=== PATIENT | female | born 1945 | race Caucasian/White ===

== ENCOUNTER → 2016-05-26 | Outpatient (CLI) | payer MEDICARE, BC ==
[~2016-05-26] MED LIST: ACET160S3 PO; ACTO15TA11 PO; AMLO5 PO; ASPI325T PO; CARV3.125 PO; CLON.1 PO; FENO145T2 PO; FENT100T TD; FENT75DI T-DERMAL; FURO1TAB60 PO; HYDR25TA35 PO; LEVEMIR SQ; LORA-392 PO; MAXZTAB PO; NEUR300C PO; NITR1SUB3 SL; NYST10007 TOPICAL; ONGL5TAB PO; OXYC1TAB35 PO; PANT40TA3 PO; PERC10TA27 PO; POLY17S PO; PRAV40TA PO; PRIL20CA9 PO; REST15CA PO; Remove Old Patch TD; TRIL135C PO; ZOFR4TAB PO
== END ==
LOC: HRSP 13:20
DX: J18.9 Pneumonia, unspecified organism (principal); R06.00 Dyspnea, unspecified; R05 Cough
CPT/HCPCS: 94060; 94726; 94729

== ENCOUNTER 2016-06-13 11:11 | Day surgery (SDC) | payer MEDICARE, BC ==
[~2016-06-13 11:11] MED LIST changes: -ACTO15TA11 PO; -FENT75DI T-DERMAL; -LORA-392 PO; -MAXZTAB PO; -NITR1SUB3 SL; -ONGL5TAB PO; -PERC10TA27 PO; -PRIL20CA9 PO; -TRIL135C PO; -ZOFR4TAB PO
[2016-06-13] MEDS ORDERED: ceFAZolin 2 GM PREMIX 50 ML IV SCH (11:45)
[2016-06-13] MEDS ORDERED: POVIDONE IODINE 5% (ANTISEPSIS KIT) 4 APPLICATIONS EACH NARE SCH (11:45)
[2016-06-13] MEDS ORDERED: MUPIROCIN 2% OINT 1 APPLIC/GM SYR NASAL SCH (11:45)
[2016-06-13] MEDS ORDERED: CHLORHEXIDINE GLUCONATE 2 % 1 PACK (2 CLOTHS) TOP SCH (11:45)
[2016-06-13] MEDS ORDERED: NS 1000 ML IV SCH (12:00)
[2016-06-13] MEDS ORDERED: ONGL5TAB PO (12:22)
[2016-06-13] MEDS ORDERED: PERC10TA27 PO (12:22)
[2016-06-13] MEDS ORDERED: NITR1SUB3 SL (12:22)
[2016-06-13] MEDS ORDERED: LORA-392 PO (12:22)
[2016-06-13] MEDS ORDERED: ZOFR4TAB PO (12:22)
[2016-06-13] MEDS ORDERED: FENT75DI T-DERMAL (12:22)
[2016-06-13] MEDS ORDERED: TRIL135C PO (12:22)
[2016-06-13] MEDS ORDERED: MAXZTAB PO (12:22)
[2016-06-13] MEDS ORDERED: ACTO15TA11 PO (12:22)
[2016-06-13] MEDS ORDERED: PRIL20CA9 PO (12:24)
[2016-06-13] MEDS ORDERED: MIDAZOLAM HCL 2 MG/2 ML VIAL ONE (13:42)
--- NOTE | 2016-06-15 14:39 | MR ---
cc: ALEXANDRIA ALDRICH DATE: 06/13/2016 INDICATION TIA/CVA, evaluation for atrial fibrillation. PROCEDURE PERFORMED 1. Placement of Medtronic Reveal LINQ MRI compatible loop monitor. 2. Moderate sedation. ACCESS SITE Left subclavicular area. EQUIPMENT USED Medtronic Reveal LINQ model LNQ11 MRI compatible loop monitor, serial number [id number]. PROCEDURE After the patient was prepped and draped in the usual sterile manner, local anesthesia was applied. Medtronic Reveal LINQ monitor was placed without difficulty. R-wave of 0.54 millivolts was obtained. DIAGNOSIS Successful placement of Medtronic Reveal LINQ MRI compatible loop monitor. DISPOSITION Ms. Xie will continue her current medical program. We will initiate long- term monitoring of her device. I will see her back for followup in our office after discharge. Alexandria Aldrich MD OQ/TLL /4:08 PM /2:35 PM MTDD
== END 2016-06-13 15:32 | disposition home or self-care (01) ==
LOC: HDOC 11:11 → HDIC 11:12 → HDOC 15:32
PROVIDERS: ATTEND Internal Medicine Interventional Cardiology
DX: I48.91 Unspecified atrial fibrillation (principal); I25.10 Atherosclerotic heart disease of native coronary artery without angina pectoris; I42.9 Cardiomyopathy, unspecified; E78.5 Hyperlipidemia, unspecified; I10 Essential (primary) hypertension; Z86.711 Personal history of pulmonary embolism; G30.9 Alzheimer's disease, unspecified; G47.30 Sleep apnea, unspecified; K21.9 Gastro-esophageal reflux disease without esophagitis; Z86.73 Personal history of transient ischemic attack (TIA), and cerebral infarction without residual deficits; Z79.82 Long term (current) use of aspirin
CPT/HCPCS: 33282; C1764; J2250; J3010

== ENCOUNTER 2016-10-24 05:56 | Emergency (ER) | payer MEDICARE, BC ==
[~2016-10-24] VITALS: Ht 152.4 cm; Wt 84.0 kg
[~2016-10-24 05:56] MED LIST changes: -ACET160S3 PO; +ACTO15TA11 PO; -FENT100T TD; +FENT75DI T-DERMAL; -LEVEMIR SQ; +LORA-392 PO; +NITR1SUB3 SL; -NYST10007 TOPICAL; +ONGL5TAB PO; -OXYC1TAB35 PO; +PERC10TA27 PO; +PRIL20CA9 PO; -Remove Old Patch TD; +TRIL135C PO; +ZOFR4TAB PO
[2016-10-24 06:04] VITALS: BP 125/62; PULSE 57; RESP 16; TEMP 97.8; O2SAT 96
[2016-10-24] MEDS ORDERED: KETOROLAC TROMETHAMINE 60 MG/2 ML (IM) VIAL IM ONE (06:45)
--- NOTE | 2016-10-24 07:22 | PD ---
HPI Chief Complaint: Musculoskeletal Complaint Time Seen by Provider: 06:27 Travel History International Travel<30 days: No Contact w/Intl Traveler<30days: No Traveled to known affect area: No History of Present Illness HPI 70-year-old female presents to the emergency department by private transportation in the care of her family for complaint of low back pain and restless legs. Patient states since the age of 14 she has intermittent chronic low back pain that causes her legs to have spasm. Patient states symptoms began around 9 PM last evening. Patient states that she did not take any medications for symptom relief. She did not attempt to use Tylenol Aleve or ibuprofen. Patient states that she ran out of her pain medication Percocet taking her last dose on Sunday. Patient states recently within the past 2 months for pain management provider has only been prescribing her Percocet 3 times a day instead of 4 times a day and that since the change in dosing frequency of her medication that she has noticed increasing pain in that she cannot tolerate this. Patient has appointment reportedly on Sunday with her pain management provider and plans on discussing increasing her pain medication back to 4 times a day from 3 times a day. Patient has multiple chronic medical problems including her chronic arthritis chronic pain syndrome as well as anxiety dyslipidemia diabetes hypertension cardiac disease, reports that she currently has a loop recorder, fibromyalgia and reflux chronic peripheral neuropathy peptic ulcer disease remote previous orthopedic surgery and cholecystectomy. Patient rates her low back pain is 8/10 in intensity and leg pain is 2/10 in intensity. Patient's had no recent or new fall or injury. Patient denies any bladder or bowel dysfunction, saddle anesthesia, or new lower extremity numbness tingling or weakness. Patient's had no lower extremity pain or swelling. No recent long distance travel, protracted bedrest , or surgical procedure. Patient takes no blood thinning agents. Patient denies dysuria frequency urgency hematuria or flank pain. Patient denies fever or chills. Patient's had no abdominal pain. Patient also denies any chest pain or shortness of breath. Patient is unable to identify exacerbating or alleviating factors. Patient just states periodically she'll get a flareup of her back pain and comes to the emergency room for shot the takes care of her pain and that she goes home and she is fine for several months after that. Patient reports blood sugars have been well-controlled. [facility] Past Medical History Narrative Medical Rheumatoid arthritis anemia anxiety dyslipidemia hypertension chest pain dementia diabetes peripheral neuropathy loop recorder orthopedic surgery cholecystectomy; no tobacco use; nursing notes reviewed Alzheimer's Disease: Yes Anemia: Yes Arthritis: Yes Anxiety: Yes Depression: No Heart Rhythm Problems: No Cancer: No Cardiovascular Problems: Yes High Cholesterol: Yes Chest Pain: Yes Congestive Heart Failure: No Cerebrovascular Accident: No Dementia: Yes Diabetes: Yes Patient Takes Glucophage: No Diminished Hearing: No Endocrine: Yes Fibromyalgia: Yes Gastrointestinal Disorders: Yes (ACID REFLUX) GERD: Yes Genitourinary: Yes (CYST RIGHT KIDNEY) Headaches: No Hepatitis: No Hiatal Hernia: No Hypertension: Yes Immune Disorder: Yes (RHEUMATOID ARTHRITIS ) Implanted Vascular Access Dvce: Yes Insomnia: Yes Musculoskeletal: Yes (FIBROMYALGIA; RHEUMATOID ARTHRITIS & OSTEOARTHRITIS) Neurologic: Yes (TIPS OF FINGERS "FEELS LIKE THEY ARE ASLEEP") Psychiatric: Yes Reproductive: No Respiratory: Yes (PNEUMONIA ) Migraines: No Pneumonia: Yes Seizures: No Sleep Apnea: Yes (can not tolerate cpap) Thyroid Disease: No Ulcer: Yes (GASTRIC) ?: Not Menopausal: Yes : 2 Para: 2 Past Surgical History Abdominal Surgery: Yes (CHOLECYSTECOMY) AICD: No Arteriovenous Shunt: No Body Medical Devices: RIGHT KNEE ? PARTIAL VS TOTAL REPLACEMENT Cholecystectomy: Yes Insulin Pump: No Joint Replacement: Yes (RIGHT KNEE 2006, LEFT KNEE TOTAL REPLACEMENT 07/23/13) Neurologic Surgery: No Pacemaker: No Other Surgery: Yes (RIGHT TIB/FIB SURGERY 01/2014) Family History Family Myocardial Infarction: Yes Social History Alcohol Use: No Tobacco Use: No Substance Use: No Allergies-Medications (Allergen,Severity, Reaction): Coded Allergies: No Known Allergies (Verified , 06/13/16) Reported Meds & Prescriptions Reported Meds & Active Scripts Active Restoril (Temazepam) 15 Mg Cap 15 Mg PO HS PRN Pravachol (Pravastatin) 40 Mg Tab 40 Mg PO HS Polyethylene Glycol 3350 Powder (Polyethylene Glycol) 17 Gm Pow 17 Gm PO BID Pantoprazole (Pantoprazole Sodium) 40 Mg Tab 40 Mg PO DAILY Neurontin (Gabapentin) 300 Mg Cap 300 Mg PO BID Lasix (Furosemide) 40 Mg Tab 40 Mg PO BID@09,18 Fenofibrate 145 Mg Tab 145 Mg PO HS Catapres (Clonidine) 0.1 Mg Tab 0.1 Mg PO Q8H Coreg (Carvedilol) 3.125 Mg Tab 3.125 Mg PO Q12HR Aspirin 325 Mg Tab 325 Mg PO DAILY Norvasc (Amlodipine Besylate) 5 Mg Tab 10 Mg PO DAILY Reported Nitroglycerin SL (Nitroglycerin) 0.4 Mg Subl 0.4 Mg SL DIRECTED PRN ONE TABLET UNDER THE TONGUE NEEDED FOR CHEST PAIN, MAY REPEAT EVERY FIVE MINUTES FOR A TOTAL OF 3 DOSES OR CALL 911 IF NO RELIEF Actos (Pioglitazone HCl) 15 Mg Tab 15 Mg PO DAILY Fentanyl Patch 72 HR (Fentanyl) 75 Mcg/Hr Patch 75 Mcg T-DERMAL Q72H Remove old patch when new one placed. Ativan (Lorazepam) 0.5 Mg Tab 0.5 Mg PO DAILY PRN Percocet (Oxycodone-Acetaminophen) 10-325 mg Tab 1 Tab PO Q6H PRN Trilipix (Choline Fenofibrate DR) 135 Mg Capdr 135 Mg PO DAILY Onglyza (Saxagliptin) 5 Mg Tab 5 Mg PO DAILY Review of Systems Except as stated in HPI: all other systems reviewed are Neg General / Constitutional: No: Fever, Chills HENT: No: Congestion Cardiovascular: No: Chest Pain or Discomfort Respiratory: No: Shortness of Breath Gastrointestinal: No: Nausea, Vomiting, Diarrhea, Abdominal Pain Genitourinary: No: Decreased Urinary Output, Flank Pain Musculoskeletal: Positive: Myalgias, Arthralgias, Pain (chronic), No: Limited ROM, Weakness, Cramping, Edema Skin: No Rash Neurologic: No: Weakness, Dizziness, Syncope Psychiatric: No: Anxiety Endocrine: No: Heat Intolerance Hematologic/Lymphatic: No: Easy Bruising Physical Exam Narrative GENERAL: Well-developed well-nourished female in no acute distress no respiratory distress; GCS 15: T: 97.8F, BP: 125/62, RR: 16, HR: 57, O2sat RA: 96% SKIN: Warm and dry. HEAD: Normocephalic. EYES: No scleral icterus. No injection or drainage. NECK: Supple, trachea midline. No JVD or lymphadenopathy. CARDIOVASCULAR: Regular rate and rhythm without murmurs, gallops, or rubs. RESPIRATORY: Breath sounds equal bilaterally. No accessory muscle use. GASTROINTESTINAL: Abdomen soft, non-tender, nondistended. MUSCULOSKELETAL: No cyanosis, or edema. Bilateral lower extremities dorsalis pedis pulses 2+ to palpation. No calf tenderness or swelling posterior calf cording; previous ankle surgery interferes with Homans testing. BACK: Nontender without obvious deformity except for mild tenderness to palpation over the lower lumbar spine and left SI joint, fentanyl patch in place. Bilaterally negative straight leg raising. Patient has no antalgic movement from supine to sitting to supine position again. No CVA tenderness. Sensory exam intact. Motor 5 over 5. DTRs 2+ symmetric as tested. Data Data Last Documented VS Vital Signs Date Time Temp Pulse Resp B/P Pulse Ox O2 Delivery O2 Flow Rate FiO2 10/24/16 06:04 97.8 57 16 125/62 96 Orders Ketorolac Inj (Toradol Inj) (10/24/16 06:45) [facility] Medical Decision Making Medical Screen Exam Complete: Yes Emergency Medical Condition: Yes Medical Record Reviewed: Yes Differential Diagnosis Exacerbation low back pain, lumbar radiculopathy, sciatica, chronic pain syndrome; also to consider cauda equina although at this time no neurologic deficit findings by physical exam or history Narrative Course Patient reports that she typically gets a pain shot and is currently not able to tolerate comfortably the current pain medication regimen that her pain management doctor has her on as she is not getting enough pain medication. Patient given injection of Toradol 60 mg IM and a one-time dose of her chronic pain medication Percocet x 1 dose Patient is stable for outpatient management no further testing or diagnostics needed at this time. Diagnosis Primary Impression: Acute exacerbation of chronic low back pain Referrals: Pain Management call for appointment Primary Care Physician call for appointment Patient Instructions: Narcotic given in the ED, General Instructions Additional Instructions: Follow-up with your primary care provider and pain management physician Return to the emergency department for any concerns or change in condition Continue chronic medications as presently prescribed Increase fluid hydration May use moist low heat intermittently to low back for comfort as needed Disposition: 01 DISCHARGE HOME Condition: Stable Francia Mosley MD Oct 24, 2016 07:22
[2016-10-24] MEDS ORDERED: oxyCODONE/ACETAMINOPHEN 7.5 MG/325 MG TAB PO ONE (07:30)
[2016-10-24 08:24] VITALS: BP 131/62; PULSE 53; RESP 16; O2SAT 95
[2016-10-24 08:44] VITALS: RESP 16
== END 2016-10-24 08:46 | disposition home or self-care (01) ==
LOC: PHED 05:56
DX: M54.5 Low back pain (principal); G89.29 Other chronic pain; E11.9 Type 2 diabetes mellitus without complications; I10 Essential (primary) hypertension; E78.5 Hyperlipidemia, unspecified; G30.9 Alzheimer's disease, unspecified; F02.80 Dementia in other diseases classified elsewhere, unspecified severity, without behavioral disturbance, psychotic disturbance, mood disturbance, and anxiety; Z79.84 Long term (current) use of oral hypoglycemic drugs; Z86.79 Personal history of other diseases of the circulatory system; Z87.39 Personal history of other diseases of the musculoskeletal system and connective tissue; Z86.59 Personal history of other mental and behavioral disorders; Z86.69 Personal history of other diseases of the nervous system and sense organs; Z87.19 Personal history of other diseases of the digestive system; Z86.2 Personal history of diseases of the blood and blood-forming organs and certain disorders involving the immune mechanism; Z87.448 Personal history of other diseases of urinary system
CPT/HCPCS: 96372; 99284; J1885

== ENCOUNTER 2017-02-02 15:15 | Emergency (ER) | payer MEDICARE, BC ==
[~2017-02-02] VITALS: Ht 152.4 cm; Wt 91.6 kg
[~2017-02-02 15:15] MED LIST changes: -ACTO15TA11 PO; +ACTO15TA22 PO; +ASPI-183 PO; -ASPI325T PO; -HYDR25TA35 PO; -PRIL20CA9 PO; -ZOFR4TAB PO
[2017-02-02 15:26] VITALS: BP 125/60; PULSE 43; RESP 18; TEMP 98.6; O2SAT 91
[2017-02-02] MEDS ORDERED: LEVEMIR SQ (15:48)
[2017-02-02] MEDS ORDERED: TIZA4TAB PO (15:50)
[2017-02-02] MEDS ORDERED: ONDANSETRON HCL 4 MG/2 ML VIAL IM ONE (16:00)
[2017-02-02] MEDS ORDERED: KETOROLAC TROMETHAMINE 60 MG/2 ML (IM) VIAL IM ONE (16:00)
--- NOTE | 2017-02-02 16:05 | PD ---
HPI Chief Complaint: Fall Time Seen by Provider: 15:35 Travel History International Travel<30 days: No Contact w/Intl Traveler<30days: No Traveled to known affect area: No History of Present Illness HPI The patient was seen and examined in the presence of the nurse. This patient has chronic pain from orthopedic injuries to her legs as a teenager. She is primarily wheelchair bound. Her right ankle is fused and her left is mostly fused. 3 days ago she slipped on the tile floor at home and fell. She occasionally gets around small distances by hanging onto the counters. She slipped on the dogs urine. She landed on her back. She complains of bilateral back pain. No midline pain. She has some hip pain at times. Severity is moderate. She is on multiple sedating medications and appears overmedicated on my evaluation. She is drowsy. There was no head injury. We found an extra fentanyl patch on her. She has been taking extra muscle relaxers since the fall called in by her physician. Severity is moderate. No alleviating factors. PFSH Past Medical History Alzheimer's Disease: Yes Anemia: Yes Arthritis: Yes Anxiety: Yes Depression: No Heart Rhythm Problems: Yes Cancer: No Cardiovascular Problems: Yes High Cholesterol: Yes Chest Pain: Yes Congestive Heart Failure: No Cerebrovascular Accident: Yes Coronary Artery Disease: Yes Dementia: Yes Diabetes: Yes Patient Takes Glucophage: No Diminished Hearing: No Endocrine: Yes Fibromyalgia: Yes Gastrointestinal Disorders: Yes (ACID REFLUX) GERD: Yes Genitourinary: Yes (CYST RIGHT KIDNEY) Headaches: No Hepatitis: No Hiatal Hernia: No Hypertension: Yes Immune Disorder: Yes (RHEUMATOID ARTHRITIS ) Implanted Vascular Access Dvce: Yes Insomnia: Yes Medical other: Yes (CHRONIC PAIN ) Musculoskeletal: Yes (FIBROMYALGIA; RHEUMATOID ARTHRITIS & OSTEOARTHRITIS) Neurologic: Yes (TIPS OF FINGERS "FEELS LIKE THEY ARE ASLEEP") Psychiatric: Yes Reproductive: No Respiratory: Yes (PNEUMONIA ) Migraines: No Myocardial Infarction: Yes Pneumonia: Yes Seizures: No Sleep Apnea: Yes (can not tolerate cpap) Thyroid Disease: No Ulcer: Yes (GASTRIC) Tetanus Vaccination: > 5 Years Influenza Vaccination: Yes ?: Not Menopausal: Yes : 2 Para: 2 Past Surgical History Abdominal Surgery: Yes (CHOLECYSTECOMY) AICD: No Arteriovenous Shunt: No Body Medical Devices: RIGHT KNEE ? PARTIAL VS TOTAL REPLACEMENT Cardiac Surgery: Yes (LOOP RECORDER) Cholecystectomy: Yes Insulin Pump: No Joint Replacement: Yes (RIGHT KNEE 2006, LEFT KNEE TOTAL REPLACEMENT 07/23/13) Neurologic Surgery: No Pacemaker: No Thoracic Surgery: No Other Surgery: Yes (RIGHT TIB/FIB SURGERY 01/2014) Family History Family Myocardial Infarction: Yes Social History Alcohol Use: No Tobacco Use: No Substance Use: No Allergies-Medications (Allergen,Severity, Reaction): Coded Allergies: No Known Allergies (Verified Adverse Reaction, Unknown, 02/02/17) Reported Meds & Prescriptions Reported Meds & Active Scripts Active Restoril (Temazepam) 15 Mg Cap 15 Mg PO HS PRN Pravachol (Pravastatin) 40 Mg Tab 40 Mg PO HS Polyethylene Glycol 3350 Powder (Polyethylene Glycol) 17 Gm Pow 17 Gm PO BID Pantoprazole (Pantoprazole Sodium) 40 Mg Tab 40 Mg PO DAILY Neurontin (Gabapentin) 300 Mg Cap 300 Mg PO BID Lasix (Furosemide) 40 Mg Tab 40 Mg PO BID@09,18 Fenofibrate 145 Mg Tab 145 Mg PO HS Catapres (Clonidine) 0.1 Mg Tab 0.1 Mg PO Q8H Coreg (Carvedilol) 3.125 Mg Tab 3.125 Mg PO Q12HR Aspirin 325 Mg Tab 325 Mg PO DAILY Norvasc (Amlodipine Besylate) 5 Mg Tab 10 Mg PO DAILY Reported Tizanidine (Tizanidine HCl) 4 Mg Tab 4 Mg PO TID Levemir Inj (Insulin Detemir) 1,000 unit/ 10 ML Vial Unknown Dose SQ Do not mix with any other Insulin. Nitroglycerin SL (Nitroglycerin) 0.4 Mg Subl 0.4 Mg SL DIRECTED PRN ONE TABLET UNDER THE TONGUE NEEDED FOR CHEST PAIN, MAY REPEAT EVERY FIVE MINUTES FOR A TOTAL OF 3 DOSES OR CALL 911 IF NO RELIEF Actos (Pioglitazone HCl) 15 Mg Tab 15 Mg PO DAILY Fentanyl Patch 72 HR (Fentanyl) 75 Mcg/Hr Patch 75 Mcg T-DERMAL Q72H Remove old patch when new one placed. Ativan (Lorazepam) 0.5 Mg Tab 0.5 Mg PO DAILY PRN Percocet (Oxycodone-Acetaminophen) 10-325 mg Tab 1 Tab PO Q6H PRN Trilipix (Choline Fenofibrate DR) 135 Mg Capdr 135 Mg PO DAILY Onglyza (Saxagliptin) 5 Mg Tab 5 Mg PO DAILY Review of Systems General / Constitutional: No: Fever Eyes: No: Visual changes HENT: No: Headaches Cardiovascular: No: Chest Pain or Discomfort Respiratory: No: Shortness of Breath Gastrointestinal: No: Abdominal Pain Genitourinary: No: Dysuria Musculoskeletal: Positive: Myalgias, Arthralgias, Limited ROM, Pain Skin: No Rash Neurologic: No: Weakness Psychiatric: No: Depression Endocrine: No: Polydipsia Hematologic/Lymphatic: No: Easy Bruising Physical Exam Narrative GENERAL: Elderly lethargic well-developed patient complaining of back pain. SKIN: Focused skin assessment reveals no rash and nodules. Skin is Warm and dry. HEAD: Atraumatic. Normocephalic. EYES: Pupils equal and round. No scleral icterus. No injection or drainage. ENT: No nasal bleeding or discharge. Mucous membranes pink and moist. NECK: Trachea midline. No JVD. No meningeal signs CARDIOVASCULAR: Regular rate and rhythm. No murmur appreciated. RESPIRATORY: No accessory muscle use. Clear to auscultation. Breath sounds equal bilaterally. GASTROINTESTINAL: Abdomen soft, non-tender, nondistended. Hepatic and splenic margins not palpable. MUSCULOSKELETAL: No clubbing. No cyanosis. No edema. Examination the back reveals no midline tenderness. No tailbone tenderness. Good range of motion of hips without pain. No long bone tenderness of the legs. There is chronic deformity at both ankles. She has some lumbar tenderness on either side without objective finding NEUROLOGICAL: Awake but drowsy. No obvious cranial nerve deficits. Motor grossly within normal limits. Normal speech. PSYCHIATRIC: Has sedate/flat mood and flat affect, denies depression; insight and judgment seems a bit reduced . Data Data Last Documented VS Vital Signs Date Time Temp Pulse Resp B/P (MAP) Pulse Ox O2 Delivery O2 Flow Rate FiO2 02/02/17 15:42 47 93 Room Air 02/02/17 15:26 98.6 18 125/60 (81) Orders Orders Pelvis, Ap Only (Routine) (02/02/17 ) Spine, Lumbar - Ltd (Ap & Lat) (02/02/17 ) Ketorolac Inj (Toradol Inj) (02/02/17 16:00) Ondansetron Inj (Zofran Inj) (02/02/17 16:00) MDM Medical Decision Making Medical Screen Exam Complete: Yes Emergency Medical Condition: Yes Medical Record Reviewed: Yes Differential Diagnosis Back strain, lumbar fracture, pelvic contusion, overmedication Narrative Course I have reviewed the patient's electronic medical record. The patient's daughter is insistent upon x-rays. I reviewed her pelvis x-ray which is negative I reviewed her lumbar spine films which shows a compression fracture at L2 I gave her injection of Zofran and Toradol. I don't feel that she should have any further sedating medication here or on prescription. I advised the patient and daughter that I felt she was overmedicated and recommended a gradual wean off some of her sedating medications. As expected, this recommendation is scoffed at and neither have any interest in trying to get her off of this medication. Of note, I believe this compression fractures an incidental finding. She has no pain anywhere near L2. There is no midline pain at all. No acute neurologic complaint. Diagnosis Primary Impression: Acute exacerbation of chronic low back pain Additional Impression: Fall Qualified Codes: W19.XXXA - Unspecified fall, initial encounter Additional Instructions: The patient was advised to follow up with their physician and return if they worsen. Recommend that you discuss weaning off sedating medication with your physician Med/Other Pt SpecificInfo: Other Disposition: 01 DISCHARGE HOME Condition: Stable Sebas Gomez MD Feb 02, 2017 16:05
--- NOTE | 2017-02-02 16:47 | RADRPT ---
EXAM DATE/TIME: 02/02/2017 16:07 [facility] COMPARISON: No previous studies available for comparison. INDICATIONS : Pelvic pain post fall 3 days ago MEDICAL HISTORY : None. SURGICAL HISTORY : None. ENCOUNTER: Initial ACUITY: 3 days PAIN SCORE: 10/10 LOCATION: Pelvis FINDINGS: A single frontal view of the pelvis demonstrates no evidence of fracture. The bony pelvic ring is in tact. Bony mineralization is normal. The soft tissues are intact. There is joint space narrowing in volving the right hip. CONCLUSION: 1. There is no evidence of acute fracture. Omero Parsons MD on February 02, 2017 at 16:28 Board Certified Radiologist. This report was verified electronically.
--- NOTE | 2017-02-02 16:50 | RADRPT ---
EXAM DATE/TIME: 02/02/2017 16:07 [facility] COMPARISON: CT THORAX W/O CONTRAST, February 23, 2016, 10:42. INDICATIONS : Lower back pain post fall 3 days ago MEDICAL HISTORY : None. SURGICAL HISTORY : None. ENCOUNTER: Initial ACUITY: 3 days PAIN SCORE: 10/10 LOCATION: Lumbar spine FINDINGS: The vertebral bodies are normal in alignment on the lateral view. There is compression fracture of th e superior endplate of L2 with only minimal vertebral body height loss. Osseous structures are osteop enic. There is multilevel facet arthritis maximal at L5-S1 CONCLUSION: 1. Compression fracture L2 without retropulsion Omero Parsons MD on February 02, 2017 at 16:45 Board Certified Radiologist. This report was verified electronically.
[2017-02-02 17:24] VITALS: BP 119/52; PULSE 49; RESP 16; O2SAT 93
[2017-02-02] MEDS ORDERED: ORPH100T2 PO (17:55)
== END 2017-02-02 18:05 | disposition home or self-care (01) ==
LOC: PHED 15:15
DX: M54.5 Low back pain (principal); G89.29 Other chronic pain; M48.56XA Collapsed vertebra, not elsewhere classified, lumbar region, initial encounter for fracture; W01.0XXA Fall on same level from slipping, tripping and stumbling without subsequent striking against object, initial encounter; Y92.009 Unspecified place in unspecified non-institutional (private) residence as the place of occurrence of the external cause
CPT/HCPCS: 72100; 72170; 96372; 99284; J1885; J2405

== ENCOUNTER 2017-02-10 17:52 | Inpatient (IN) | payer MEDICARE, BC ==
[2017-02-10] VITALS (8 sets, daily range): BP systolic 114–171; BP diastolic 55–67; PULSE 42–79; RESP 17–18; TEMP 98.3; O2SAT 94–97
[~2017-02-10] VITALS: Ht 162.6 cm; Wt 88.0 kg
[~2017-02-10 17:52] MED LIST changes: +LEVEMIR SQ; +ORPH100T2 PO; +TIZA4TAB PO
[2017-02-10] MEDS ORDERED: TERBUTALINE INJ 1 MG/ML AMP SQ PRN (18:15)
[2017-02-10] MEDS ORDERED: SODIUM CHLOR 0.9% 1000 ML INJ 1,000 ML IV SCH (18:15)
[2017-02-10] MEDS ORDERED: LORazepam 2 MG/ML VIAL IV PUSH ONE (18:15)
[2017-02-10] MEDS ORDERED: DOPamine INJ PREMIX 500 ML IV PRN (18:15)
--- NOTE | 2017-02-10 18:24 | RADRPT ---
EXAM DATE/TIME: 02/10/2017 18:04 [facility] COMPARISON: CHEST SINGLE AP, March 02, 2016, 6:27. INDICATIONS : Short of breath. MEDICAL HISTORY : Hypertension. Diabetes mellitus type 2. Alzheimers. Cardiomyopathy, SURGICAL HISTORY : Colon resection. 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 Bilateral knee replacements and hip surgery. ENCOUNTER: Initial ACUITY: 1 day PAIN SCORE: 0/10 LOCATION: Bilateral chest FINDINGS: Portable AP view of the chest demonstrates a normal-sized cardiac silhouette. No effusion, consolidat ion, or pneumothorax is visualized. The bones and soft tissues demonstrate no acute abnormality. EKG lines overlie the patient. CONCLUSION: No acute cardiopulmonary abnormality is identified. Kevin Recinos MD on February 10, 2017 at 18:22 Board Certified Radiologist. This report was verified electronically.
[2017-02-10 18:34] LABS: BASOPHIL # 0.1 TH/MM3 (0-0.2); BASOPHIL % 0.5 % (0.0-2.0); EOSINOPHIL # 0.3 TH/MM3 (0-0.4); EOSINOPHIL % 2.3 % (0.0-4.0); HEMATOCRIT 39.5 % (35.0-46.0); HEMO FLAGS DIFF FINAL; LYMPH % 32.1 % (9.0-44.0); LYMPHOCYTE # 3.6 TH/MM3 (1.0-4.8); MEAN CELL VOLUME 83.4 FL (80.0-100.0); MEAN CORPUSCULAR HEMOGLOBIN 27.5 PG (27.0-34.0); MEAN CORPUSCULAR HGB CONC 32.9 % (32.0-36.0); MONO % 11.2 % (0.0-8.0); NEUT % 53.9 % (16.0-70.0); PLATELET COUNT 433 TH/MM3 (150-450); RED BLOOD COUNT 4.73 MIL/MM3 (4.00-5.30); RED CELL DISTRIBUTION WIDTH 14.6 % (11.6-17.2); WHITE BLOOD COUNT 11.2 TH/MM3 (4.0-11.0)
--- NOTE | 2017-02-10 18:45 | PD ---
HPI Chief Complaint: Cardiac Complaint Time Seen by Provider: 18:01 Travel History International Travel<30 days: No Contact w/Intl Traveler<30days: No Traveled to known affect area: No History of Present Illness HPI 71-year-old female complains of having frequent falls. Patient states that she fell frequently for the past several weeks. Patient states that she started having mid back pain and low back pain from the fall recently. Patient denies any head injury. Patient denies any headache. Patient denies any neck pain. Patient denies any patient denies any chest pain or shortness of breath. Patient denies abdominal pain. Patient denies any focal weakness or numbness of extremity. Patient has history of hypertension, type 2 diabetes, hyperlipidemia, metabolic encephalopathy, prior history of PE, chronic pain. EMS was called today. Patient was bradycardic with a heart rate in the 40s. EKG showed sinus bradycardia with a raise in the 40s. Systolic blood pressure was any 80s. Patient was given atropine 0.4 mg 2 without relief. External pacer was applied to the chest wall and she was transported to ED for evaluation. Family members state the patient has low pulse usually in the 40s and 50s and blood pressure in the 70s and 80s for the past few months. Patient has been refusing pacer placement by Dr. Aldrich . [facility] Past Medical History Alzheimer's Disease: Yes Anemia: Yes Arthritis: Yes Anxiety: Yes Depression: No Heart Rhythm Problems: Yes Cancer: No Cardiovascular Problems: Yes High Cholesterol: Yes Chest Pain: Yes Congestive Heart Failure: No Cerebrovascular Accident: Yes Coronary Artery Disease: Yes Dementia: Yes Diabetes: Yes Patient Takes Glucophage: No Diminished Hearing: No Endocrine: Yes Fibromyalgia: Yes Gastrointestinal Disorders: Yes (ACID REFLUX) GERD: Yes Genitourinary: Yes (CYST RIGHT KIDNEY) Headaches: No Hepatitis: No Hiatal Hernia: No Hypertension: Yes Immune Disorder: Yes (RHEUMATOID ARTHRITIS ) Implanted Vascular Access Dvce: Yes Insomnia: Yes Medical other: No Musculoskeletal: Yes (FIBROMYALGIA; RHEUMATOID ARTHRITIS & OSTEOARTHRITIS) Neurologic: Yes (TIPS OF FINGERS "FEELS LIKE THEY ARE ASLEEP") Psychiatric: Yes Reproductive: No Respiratory: Yes (PNEUMONIA ) Migraines: No Myocardial Infarction: Yes Pneumonia: Yes Seizures: No Sleep Apnea: Yes (can not tolerate cpap) Thyroid Disease: No Ulcer: Yes (GASTRIC) ?: Not Menopausal: Yes : 2 Para: 2 Past Surgical History Abdominal Surgery: Yes (CHOLECYSTECOMY) AICD: No Arteriovenous Shunt: No Body Medical Devices: RIGHT KNEE ? PARTIAL VS TOTAL REPLACEMENT Cardiac Surgery: Yes (LOOP RECORDER) Cholecystectomy: Yes Ear Surgery: No Endocrine Surgery: No Eye Surgery: No Genitourinary Surgery: No Gynecologic Surgery: No Insulin Pump: No Joint Replacement: Yes (RIGHT KNEE 2006, LEFT KNEE TOTAL REPLACEMENT 07/23/13) Neurologic Surgery: No Oral Surgery: No Pacemaker: No Thoracic Surgery: No Other Surgery: Yes (RIGHT TIB/FIB SURGERY 01/2014) Family History Family Myocardial Infarction: Yes Social History Alcohol Use: No Tobacco Use: No Substance Use: No Allergies-Medications (Allergen,Severity, Reaction): Coded Allergies: No Known Allergies (Verified Adverse Reaction, Unknown, 02/02/17) Reported Meds & Prescriptions Reported Meds & Active Scripts Active Orphenadrine CR (Orphenadrine Citrate) 100 Mg Tab 100 Mg PO Q12HR PRN Restoril (Temazepam) 15 Mg Cap 15 Mg PO HS PRN Pravachol (Pravastatin) 40 Mg Tab 40 Mg PO HS Polyethylene Glycol 3350 Powder (Polyethylene Glycol) 17 Gm Pow 17 Gm PO BID Pantoprazole (Pantoprazole Sodium) 40 Mg Tab 40 Mg PO DAILY Neurontin (Gabapentin) 300 Mg Cap 300 Mg PO BID Lasix (Furosemide) 40 Mg Tab 40 Mg PO BID@09,18 Fenofibrate 145 Mg Tab 145 Mg PO HS Catapres (Clonidine) 0.1 Mg Tab 0.1 Mg PO Q8H Coreg (Carvedilol) 3.125 Mg Tab 3.125 Mg PO Q12HR Aspirin 325 Mg Tab 325 Mg PO DAILY Norvasc (Amlodipine Besylate) 5 Mg Tab 10 Mg PO DAILY Reported Tizanidine (Tizanidine HCl) 4 Mg Tab 4 Mg PO TID Levemir Inj (Insulin Detemir) 1,000 unit/ 10 ML Vial Unknown Dose SQ Do not mix with any other Insulin. Nitroglycerin SL (Nitroglycerin) 0.4 Mg Subl 0.4 Mg SL DIRECTED PRN ONE TABLET UNDER THE TONGUE NEEDED FOR CHEST PAIN, MAY REPEAT EVERY FIVE MINUTES FOR A TOTAL OF 3 DOSES OR CALL 911 IF NO RELIEF Actos (Pioglitazone HCl) 15 Mg Tab 15 Mg PO DAILY Fentanyl Patch 72 HR (Fentanyl) 75 Mcg/Hr Patch 75 Mcg T-DERMAL Q72H Remove old patch when new one placed. Ativan (Lorazepam) 0.5 Mg Tab 0.5 Mg PO DAILY PRN Percocet (Oxycodone-Acetaminophen) 10-325 mg Tab 1 Tab PO Q6H PRN Trilipix (Choline Fenofibrate DR) 135 Mg Capdr 135 Mg PO DAILY Onglyza (Saxagliptin) 5 Mg Tab 5 Mg PO DAILY Review of Systems General / Constitutional: No: Fever Eyes: No: Visual changes HENT: No: Headaches Cardiovascular: No: Chest Pain or Discomfort Respiratory: No: Shortness of Breath Gastrointestinal: No: Abdominal Pain Genitourinary: No: Dysuria Musculoskeletal: No: Pain Skin: No Rash Neurologic: No: Weakness Psychiatric: No: Depression Endocrine: No: Polydipsia Hematologic/Lymphatic: No: Easy Bruising Physical Exam Narrative GENERAL: Well-nourished, well-developed patient. SKIN: Focused skin assessment warm/dry. HEAD: Normocephalic. EYES: No scleral icterus. No injection or drainage. NECK: Supple, trachea midline. No JVD or lymphadenopathy. CARDIOVASCULAR: Bradycardia rate and rhythm without murmurs, gallops, or rubs. RESPIRATORY: Breath sounds equal bilaterally. No accessory muscle use. GASTROINTESTINAL: Abdomen soft, non-tender, nondistended. MUSCULOSKELETAL: No cyanosis, or edema. BACK: Patient has mild to moderate tenderness on palpation low thoracic upper lumbar area, without obvious deformity. No CVA tenderness. Neurologic exam: Patient's awake and alert oriented 3. No obvious focal neurological deficit. Data Data Last Documented VS Vital Signs Date Time Temp Pulse Resp B/P (MAP) Pulse Ox O2 Delivery O2 Flow Rate FiO2 02/10/17 18:43 43 18 114/56 (75) 95 Nasal Cannula 2.00 02/10/17 18:09 98.3 Orders Orders Lorazepam Inj (Ativan Inj) (02/10/17 18:15) Electrocardiogram (02/10/17 18:02) Complete Blood Count With Diff (02/10/17 18:02) Comprehensive Metabolic Panel (02/10/17 18:02) Creatine Kinase (Cpk) (02/10/17 18:02) Troponin I (02/10/17 18:02) B-Type Natriuretic Peptide (02/10/17 18:02) Prothrombin Time / Inr (Pt) (02/10/17 18:02) Act Partial Throm Time (Ptt) (02/10/17 18:02) Thyroid Stimulating Hormone (02/10/17 18:02) Chest, Single Ap (02/10/17 18:) Iv Access Insert/Monitor (02/10/17 18:02) Ecg Monitoring (02/10/17 18:02) Oxygen Administration (02/10/17 18:) Oximetry (02/10/17 18:02) Dopamine Inj Premix (Dopamine Inj Premix (02/10/17 18:15) Terbutaline Inj (Brethine Inj) (02/10/17 18:15) Sodium Chlor 0.9% 1000 Ml Inj (Ns 1000 M (02/10/17 18:15) Spine, Lumbar - Ltd (Ap & Lat) (02/10/17 18:08) Spine, Thoracic-Ap/Lat/Sw(3vw) (02/10/17 18:09) Labs Laboratory Tests Test 02/10/17 18:06 White Blood Count 11.2 TH/MM3 Red Blood Count 4.73 MIL/MM3 Hemoglobin 13.0 GM/DL Hematocrit 39.5 % Mean Corpuscular Volume 83.4 FL Mean Corpuscular Hemoglobin 27.5 PG Mean Corpuscular Hemoglobin Concent 32.9 % Red Cell Distribution Width 14.6 % Platelet Count 433 TH/MM3 Mean Platelet Volume 7.3 FL Neutrophils (%) (Auto) 53.9 % Lymphocytes (%) (Auto) 32.1 % Monocytes (%) (Auto) 11.2 % Eosinophils (%) (Auto) 2.3 % Basophils (%) (Auto) 0.5 % Neutrophils # (Auto) 6.0 TH/MM3 Lymphocytes # (Auto) 3.6 TH/MM3 Monocytes # (Auto) 1.3 TH/MM3 Eosinophils # (Auto) 0.3 TH/MM3 Basophils # (Auto) 0.1 TH/MM3 CBC Comment DIFF FINAL Differential Comment MDM Medical Decision Making Medical Screen Exam Complete: Yes Emergency Medical Condition: Yes Medical Record Reviewed: Yes Differential Diagnosis Differential diagnosis including sinus bradycardia, heart block. Narrative Course 71-year-old female with beta cardia and hypertension. History of chronic bradycardia and hypotension. Patient has been refusing pacemaker to be placed by Dr. Aldrich. External pacer was applied by EMS. I spoke with Dr. Moses on-call for Dr. Aldrich. Advised to stop the external pacer and dopamine IV drip as necessary to keep pulse of blood pressure under control. Diagnosis Primary Impression: Sinus bradycardia Gurjit Fletcher MD Feb 10, 2017 18:45
[2017-02-10] MEDS ORDERED: HYDR-3799 PO (18:50)
[2017-02-10] MEDS ORDERED: MULT1CHW PO (18:50)
[2017-02-10] MEDS ORDERED: NEUR300C PO (18:50)
[2017-02-10] MEDS ORDERED: ZANT150T2 PO (18:50)
[2017-02-10] MEDS ORDERED: FLUO1TAB3 PO (18:50)
[2017-02-10] MEDS ORDERED: ASPI81TA16 PO (18:50)
[2017-02-10] MEDS ORDERED: D31000CA3 PO (18:50)
[2017-02-10] MEDS ORDERED: AMLO10 PO (18:50)
[2017-02-10] MEDS ORDERED: ISOS30TA3 PO (18:50)
[2017-02-10] MEDS ORDERED: LORA2TAB7 PO (18:50)
[2017-02-10 18:52] LABS: ALT (GPT) 15 U/L (10-53); ANION GAP 8 MEQ/L (5-15); APTT (PATIENT) 28.9 SEC (24.3-30.1); AST (GOT) 14 U/L (15-37); BICARBONATE 29.2 MEQ/L (21.0-32.0); BLOOD UREA NITROGEN 12 MG/DL (7-18); CHLORIDE 99 MEQ/L (98-107); GLOMERULAR FILTRATION RATE 45 ML/MIN (>89); INTERNATIONAL NORMALIZED RATIO 1.1 RATIO; PROTHROMBIN TIME - PATIENT 12.2 SEC (9.8-11.6); SODIUM (NA) 136 MEQ/L (136-145)
[2017-02-10 19:02] LABS: ALKALINE PHOSPHATASE 55 U/L (45-117); TOTAL BILIRUBIN ADULT 0.3 MG/DL (0.2-1.0)
[2017-02-10 19:08] LABS: CREATINE KINASE 33 U/L (26-192)
--- NOTE | 2017-02-10 19:25 | PD ---
Data Data Last Documented VS Vital Signs Date Time Temp Pulse Resp B/P (MAP) Pulse Ox O2 Delivery O2 Flow Rate FiO2 02/10/17 19:11 43 18 116/55 (75) 94 Nasal Cannula 2.00 02/10/17 18:09 98.3 Orders Orders Lorazepam Inj (Ativan Inj) (02/10/17 18:15) Electrocardiogram (02/10/17 18:02) Complete Blood Count With Diff (02/10/17 18:02) Comprehensive Metabolic Panel (02/10/17 18:) Creatine Kinase (Cpk) (02/10/17 18:02) Troponin I (02/10/17 18:02) B-Type Natriuretic Peptide (02/10/17 18:02) Prothrombin Time / Inr (Pt) (02/10/17 18:) Act Partial Throm Time (Ptt) (02/10/17 18:02) Thyroid Stimulating Hormone (02/10/17 18:02) Chest, Single Ap (02/10/17 18:02) Iv Access Insert/Monitor (02/10/17 18:02) Ecg Monitoring (02/10/17 18:02) Oxygen Administration (02/10/17 18:02) Oximetry (02/10/17 18:02) Dopamine Inj Premix (Dopamine Inj Premix (02/10/17 18:15) Terbutaline Inj (Brethine Inj) (02/10/17 18:15) Sodium Chlor 0.9% 1000 Ml Inj (Ns 1000 M (02/10/17 18:15) Spine, Lumbar - Ltd (Ap & Lat) (02/10/17 18:08) Spine, Thoracic-Ap/Lat/Sw(3vw) (02/10/17 18:09) Admit Order (Ed Use Only) (02/10/17 ) [employer] Consult[employer] / Telemetry [email or web address] (02/10/17 19:29) Vital Signs (Adult) Q4H (02/10/17 19:29) Diet Npo (02/11/17 Breakfast) Activity Oob With Assistance (02/10/17 19:29) Notify Dr: Other (02/10/17 19:29) Consult Cardiology (02/10/17 ) Labs Laboratory Tests Test 02/10/17 18:06 White Blood Count 11.2 TH/MM3 Red Blood Count 4.73 MIL/MM3 Hemoglobin 13.0 GM/DL Hematocrit 39.5 % Mean Corpuscular Volume 83.4 FL Mean Corpuscular Hemoglobin 27.5 PG Mean Corpuscular Hemoglobin Concent 32.9 % Red Cell Distribution Width 14.6 % Platelet Count 433 TH/MM3 Mean Platelet Volume 7.3 FL Neutrophils (%) (Auto) 53.9 % Lymphocytes (%) (Auto) 32.1 % Monocytes (%) (Auto) 11.2 % Eosinophils (%) (Auto) 2.3 % Basophils (%) (Auto) 0.5 % Neutrophils # (Auto) 6.0 TH/MM3 Lymphocytes # (Auto) 3.6 TH/MM3 Monocytes # (Auto) 1.3 TH/MM3 Eosinophils # (Auto) 0.3 TH/MM3 Basophils # (Auto) 0.1 TH/MM3 CBC Comment DIFF FINAL Differential Comment Prothrombin Time 12.2 SEC Prothromb Time International Ratio 1.1 RATIO Activated Partial Thromboplast Time 28.9 SEC Blood Urea Nitrogen 12 MG/DL Creatinine 1.17 MG/DL Random Glucose 120 MG/DL Total Protein 7.2 GM/DL Albumin 3.2 GM/DL Calcium Level 8.1 MG/DL Alkaline Phosphatase 55 U/L Aspartate Amino Transf (AST/SGOT) 14 U/L Alanine Aminotransferase (ALT/SGPT) 15 U/L Total Bilirubin 0.3 MG/DL Sodium Level 136 MEQ/L Potassium Level 3.0 MEQ/L Chloride Level 99 MEQ/L Carbon Dioxide Level 29.2 MEQ/L Anion Gap 8 MEQ/L Estimat Glomerular Filtration Rate 45 ML/MIN Total Creatine Kinase 33 U/L Troponin I LESS THAN 0.02 NG/ML Thyroid Stimulating Hormone 3rd Gen 1.690 uIU/ML [facility] Supervised Visit with MARTIN: Yes Narrative Course Patient to me at 7 PM. Patient was symptomatic sinus bradycardia, previously refusing pacemaker, now increasingly symptomatic. Dr. Fletcher spoke with Dr. Hamilton. We'll admit patient, we will consult cardiology for pacemaker placement. Diagnosis Primary Impression: Sinus bradycardia Anival Vines MD Feb 10, 2017 19:25
[2017-02-10] MEDS ORDERED: SENNOSIDES 8.6 MG TAB PO PRN (19:45)
[2017-02-10] MEDS ORDERED: SODIUM CHLORIDE 0.9% FLUSH 10 ML FLUSH IV FLUSH PRN (19:45)
[2017-02-10] MEDS ORDERED: LACTULOSE SYRUP 20 GM/30 ML CUP PO PRN (19:45)
[2017-02-10] MEDS ORDERED: ACETAMINOPHEN 325 MG TAB PO PRN (19:45)
[2017-02-10] MEDS ORDERED: BISACODYL 10 MG SUPP RECTAL PRN (19:45)
[2017-02-10] MEDS ORDERED: MAGNESIUM HYDROXIDE SUSP 30 ML CUP PO PRN (19:45)
[2017-02-10] MEDS ORDERED: POTASSIUM CHLORIDE 20 MEQ CONTROLLED RELEASE TAB PO ONE (20:00)
[2017-02-10] MEDS: SODIUM CHLOR 0.9% 1000 ML INJ 1,000 ML IV SCH (20:12)
--- NOTE | 2017-02-10 20:48 | RADRPT ---
EXAM DATE/TIME: 02/10/2017 20:19 [facility] COMPARISON: No previous studies available for comparison. INDICATIONS : Back pain post fall ,cardiac episode. MEDICAL HISTORY : Diabetes mellitus type II. Angina. Coronary artery disease SURGICAL HISTORY : Cholecystectomy. Total knee replacement, left. Right tib/fib surgery ENCOUNTER: Initial ACUITY: 1 day PAIN SCORE: 8/10 LOCATION: Bilateral back FINDINGS: 3 views of the thoracic spine demonstrate no fracture or compression deformity. There are endplate os teophytes at essentially all levels. No anterolisthesis or retrolisthesis is identified. Visualized s urrounding structures demonstrate no acute finding. CONCLUSION: There are degenerative changes throughout the thoracic spine. No acute finding is seen. Kevin Recinos MD on February 10, 2017 at 20:46 Board Certified Radiologist. This report was verified electronically.
--- NOTE | 2017-02-10 20:50 | RADRPT ---
EXAM DATE/TIME: 02/10/2017 20:20 [facility] COMPARISON: SPINE LUMBAR LTD (AP & LAT), February 02, 2017, 16:07. INDICATIONS : Back pain post fall, cardiac episode. MEDICAL HISTORY : Diabetes mellitus type II. Angina. Coronary artery disease SURGICAL HISTORY : Umbilical hernia repair. Cholecystectomy. Total knee replacement, left. Right tib/fib surgery ENCOUNTER: Initial ACUITY: 1 day PAIN SCORE: 7/10 LOCATION: Bilateral back FINDINGS: 3 views of the lumbar spine demonstrate 5 [id number] lumbar vertebral bodies. There is stable clayton perior endplate compression deformity at L2. The superior endplate of T12 also demonstrates stable mi ld decreased height. No new compression fracture is seen. There is no anterolisthesis or retrolisthes is. Facet hypertrophy is present at L4-L5 and L5-S1. CONCLUSION: Stable examination of the lumbar spine with height loss at the superior endplate of T12 and L2. No ac elim ira finding is identified. Kevin Recinos MD on February 10, 2017 at 20:47 Board Certified Radiologist. This report was verified electronically.
--- NOTE | 2017-02-10 20:59 | HHI.HP ---
[facility] Reynaldo Menendez D.O. Admission Diagnosis sinus bradycardia cardiac, hypotension Diagnoses: (1) Symptomatic bradycardia Diagnosis: Principal (2) Leukocytosis Diagnosis: Principal (3) Renal insufficiency Diagnosis: Principal (4) Hypokalemia Diagnosis: Principal Travel History International Travel<30 Days: No Contact w/Intl Traveler <30 Da: No Traveled to Known Affected Are: No History of Present Illness This is a 71-year-old female with a PMH of HTN, Anxiety, CAD, Fibromyalgia, h/o CVA and Rheumatoid Arthritis who was brought to the ER by EMS secondary to c/o back pain after fall. Upon EMS arrival, pt found to be bradycardic, HR 40's, s/ p Atropine x2 w/ minimal improvement, external pacer placed. BP 80's systolic. Per family, has been following w/ Dr. Aldrich for bradycardia, has previously refused Pacemaker. On arrival, BP 171/63, HR 79, O2 sat 96% on 2L NC, Afebrile. While in ER, HR 40s. Dr. Hamilton consulted by ER physician, recommended d/c external pacer, Dopamine gtt as needed. WBC 11.2. K+ 3.0. Creatinine 1.17, previously 0.60 on 02/29/16. Trop negative. INR 1.1. CXR with no acute findings. Thoracic/Lumbar X-ray with no acute fracture. Review of Systems Except as stated in HPI: all other systems reviewed are Neg ROS: 14 point review of systems otherwise negative. Past Family Social History Past Medical History PMH: HTN, Anxiety, CAD, Fibromyalgia, h/o CVA and Rheumatoid Arthritis Past Surgical History PAST SURGICAL HISTORY: Cholecystectomy, Right Knee Surgery, Left Knee Replacement Allergies: Coded Allergies: No Known Allergies (Verified Allergy, Unknown, 02/10/17) Family History PAST FAMILY HISTORY: Reviewed, positive for CAD. Social History PAST SOCIAL HISTORY: Negative for alcohol, tobacco or drugs. Physical Exam Vital Signs Vital Signs Date Time Temp Pulse Resp B/P (MAP) Pulse Ox O2 Delivery O2 Flow Rate FiO2 02/10/17 19:11 43 18 116/55 (75) 94 Nasal Cannula 2.00 02/10/17 18:43 43 18 114/56 (75) 95 Nasal Cannula 2.00 02/10/17 18:13 70 18 96 Nasal Cannula 2.00 02/10/17 18:09 98.3 79 18 171/63 (99) 96 Nasal Cannula 2.00 02/10/17 18:07 18 97 Nasal Cannula 2.00 02/10/17 18:07 97 Nasal Cannula 2.00 Physical Exam PE: GENERAL: Pleasant elderly white female in no acute distress. HEENT: PERRLA, EOMI. No scleral icterus or conjunctival pallor. No lid lag or facial droop. CARDIOVASCULAR: Bradycardia. No obvious murmurs to auscultation. No chest tenderness to palpation. RESPIRATORY: No obvious rhonchi or wheezing. Clear to auscultation. Breath sounds equal bilaterally. GASTROINTESTINAL: Abdomen soft, non-tender, nondistended. BS normal. MUSCULOSKELETAL: Extremities without clubbing, cyanosis, or edema. No obvious deformities. NEUROLOGICAL: Awake, alert and oriented x4. No focal neurologic deficits. Moving both upper and lower extremities spontaneously. Laboratory Laboratory Tests Test 02/10/17 18:06 White Blood Count 11.2 Red Blood Count 4.73 Hemoglobin 13.0 Hematocrit 39.5 Mean Corpuscular Volume 83.4 Mean Corpuscular Hemoglobin 27.5 Mean Corpuscular Hemoglobin Concent 32.9 Red Cell Distribution Width 14.6 Platelet Count 433 Mean Platelet Volume 7.3 Neutrophils (%) (Auto) 53.9 Lymphocytes (%) (Auto) 32.1 Monocytes (%) (Auto) 11.2 Eosinophils (%) (Auto) 2.3 Basophils (%) (Auto) 0.5 Neutrophils # (Auto) 6.0 Lymphocytes # (Auto) 3.6 Monocytes # (Auto) 1.3 Eosinophils # (Auto) 0.3 Basophils # (Auto) 0.1 CBC Comment DIFF FINAL Differential Comment Prothrombin Time 12.2 Prothromb Time International Ratio 1.1 Activated Partial Thromboplast Time 28.9 Blood Urea Nitrogen 12 Creatinine 1.17 Random Glucose 120 Total Protein 7.2 Albumin 3.2 Calcium Level 8.1 Alkaline Phosphatase 55 Aspartate Amino Transf (AST/SGOT) 14 Alanine Aminotransferase (ALT/SGPT) 15 Total Bilirubin 0.3 Sodium Level 136 Potassium Level 3.0 Chloride Level 99 Carbon Dioxide Level 29.2 Anion Gap 8 Estimat Glomerular Filtration Rate 45 Total Creatine Kinase 33 Troponin I LESS THAN 0.02 B-Type Natriuretic Peptide 42 Thyroid Stimulating Hormone 3rd Gen 1.690 Result Diagram: 02/10/17180502/10[facility]1718[address] [facility] Caprin VTE Risk Assessment: Mod/High Risk (score >= 2) Caprini Risk Assessment Model Point Value = 1 Point Value = 2 Point Value = 3 Point Value = 5 Age 41-60 Minor surgery BMI > 25 kg/m2 Swollen legs Varicose veins or History of unexplained or recurrent spontaneous Oral contraceptives or hormone replacement Sepsis (< 1 month) Serious lung disease, including pneumonia (< 1 month) Abnormal pulmonary function Acute myocardial infarction Congestive heart failure (< 1 month) History of inflammatory bowel disease Medical patient at bed rest Age 61-74 Arthroscopic surgery Major open surgery (> 45 min) Laparoscopic surgery (> 45 min) Malignancy Confined to bed (> 72 hours) Immobilizing plaster cast Central venous access Age >= 75 History of VTE Family history of VTE Factor V Leiden Prothrombin [id number] Lupus anticoagulant Anticardiolipin antibodies Elevated serum homocysteine Heparin-induced thrombocytopenia Other congenital or acquired thrombophilia Stroke (< 1 month) Elective arthroplasty Hip, pelvis, or leg fracture Acute spinal cord injury (< 1 month) Prophylaxis Regimen Total Risk Factor Score Risk Level Prophylaxis Regimen 0-1 Low Early ambulation 2 Moderate Order ONE of the following: *Sequential Compression Device (SCD) *Heparin 5000 units SQ BID 3-4 Higher Order ONE of the following medications: *Heparin 5000 units SQ TID *Enoxaparin/Lovenox 40 mg SQ daily (WT < 150 kg, CrCl > 30 mL/min) *Enoxaparin/Lovenox 30 mg SQ daily (WT < 150 kg, CrCl > 10-29 mL/min) *Enoxaparin/Lovenox 30 mg SQ BID (WT < 150 kg, CrCl > 30 mL/min) AND/OR *Sequential Compression Device (SCD) 5 or more Highest Order ONE of the following medications: *Heparin 5000 units SQ TID (Preferred with Epidurals) *Enoxaparin/Lovenox 40 mg SQ daily (WT < 150 kg, CrCl > 30 mL/min) *Enoxaparin/Lovenox 30 mg SQ daily (WT < 150 kg, CrCl > 10-29 mL/min) *Enoxaparin/Lovenox 30 mg SQ BID (WT < 150 kg, CrCl > 30 mL/min) AND *Sequential Compression Device (SCD) Assessment and Plan Problem List: (1) Symptomatic bradycardia ICD Code: R00.1 - Bradycardia, unspecified (2) Hypokalemia ICD Code: E87.6 - Hypokalemia (3) Leukocytosis ICD Code: D72.829 - Elevated white blood cell count, unspecified (4) Renal insufficiency ICD Code: N28.9 - Disorder of kidney and ureter, unspecified Assessment and Plan A/P: 1. Symptomatically Bradycardia: chronic, follows w/ Dr. Aldrich, previously refused Pacer. HR 40's upon arrival, Dr. Child consulted by ER physician, recommended Dopamine as needed. Will eval in am. Initial trop negative, check serial cardiac enzymes to r/o underlying ischemia. Echo 02/05/16 w/ EF 60-65%. Telemetry. 2. Hypokalemia: K+ 3.0. Will replace and recheck 3. SANDRA: Creatinine 1.17, previously 0.60 on 02/29/16. IVF for hydration, repeat labs in am. 4. Leukocytosis: WBC 11, afebrile, no signs of infection. CXR w/ no acute findings, images reviewed by me. Repeat labs in am. 5. DVT Prophylaxis: SCD/Teds. 6. Social work for d/c planning as needed. 7. Case discussed w/ ER physician at length. Physician Certification 2 Midnight Certification Type: Admission for Inpatient Services Order for Inpatient Services The services are ordered in accordance with Medicare regulations or non- Medicare payer requirements, as applicable. In the case of services not specified as inpatient-only, they are appropriately provided as inpatient services in accordance with the 2-midnight benchmark. Estimated LOS (days): 2 days is the estimated time the patient will need to remain in the hospital, assuming treatment plan goals are met and no additional complications. Post-Hospital Plan: Not yet determined Sofia Alcocer MD Feb 10, 2017 20:59
[2017-02-10] MEDS: INSULIN ASPART SUPPLEMENTAL SCALE SQ SCH (21:00)
[2017-02-10] MEDS ORDERED: GLUCAGON 1 MG/ML VIAL OTHER PRN (21:00)
[2017-02-10] MEDS ORDERED: DEXTROSE 50% IN WATER 50 ML VIAL(D50) IV PUSH PRN (21:00)
[2017-02-10] MEDS: SODIUM CHLORIDE 0.9% FLUSH 10 ML FLUSH IV FLUSH SCH (21:09)
[2017-02-10] MEDS: fentaNYL 75 MCG/HR PATCH T-DERMAL SCH (22:49)
[2017-02-10] MEDS: DOCUSATE SODIUM 50 MG/SENNA 8.6 MG TAB PO SCH (22:50)
[2017-02-10] MEDS: PRAVASTATIN SOD 40 MG TAB PO SCH (22:50)
[2017-02-10] MEDS: FENOFIBRATE 145 MG TAB PO SCH (22:50)
[2017-02-11] VITALS (24 sets, daily range): BP systolic 147–196; BP diastolic 68–80; PULSE 50–78; RESP 18; TEMP 98.2–98.7; O2SAT 93–98
[2017-02-11] MEDS: MORPHINE SULFATE 4 MG/ML INJ IV PUSH PRN ×3 (04:08→19:30)
[2017-02-11] MEDS: SODIUM CHLOR 0.9% 1000 ML INJ 1,000 ML IV SCH (05:06)
[2017-02-11 05:29] LABS: AUTOMATED NEUTROPHIL # 6.9 TH/MM3 (1.8-7.7); BASOPHIL # 0.1 TH/MM3 (0-0.2); BASOPHIL % 0.7 % (0.0-2.0); EOSINOPHIL # 0.3 TH/MM3 (0-0.4); EOSINOPHIL % 2.3 % (0.0-4.0); HEMO FLAGS DIFF FINAL; LYMPHOCYTE # 3.1 TH/MM3 (1.0-4.8); MEAN CELL VOLUME 84.2 FL (80.0-100.0); MEAN CORPUSCULAR HEMOGLOBIN 28.7 PG (27.0-34.0); MEAN CORPUSCULAR HGB CONC 34.1 % (32.0-36.0); MONO % 9.6 % (0.0-8.0); NEUT % 60.4 % (16.0-70.0); PLATELET COUNT 384 TH/MM3 (150-450); RED BLOOD COUNT 4.64 MIL/MM3 (4.00-5.30); RED CELL DISTRIBUTION WIDTH 14.9 % (11.6-17.2); WHITE BLOOD COUNT 11.5 TH/MM3 (4.0-11.0)
[2017-02-11 05:50] LABS: ANION GAP 8 MEQ/L (5-15); AST (GOT) 13 U/L (15-37); BICARBONATE 28.1 MEQ/L (21.0-32.0); BLOOD UREA NITROGEN 8 MG/DL (7-18); CHLORIDE 104 MEQ/L (98-107); GLOMERULAR FILTRATION RATE 60 ML/MIN (>89); POTASSIUM 3.3 MEQ/L (3.5-5.1); SODIUM (NA) 140 MEQ/L (136-145)
[2017-02-11 05:53] LABS: ALKALINE PHOSPHATASE 53 U/L (45-117); ALT (GPT) 14 U/L (10-53); TOTAL BILIRUBIN ADULT 0.4 MG/DL (0.2-1.0)
[2017-02-11] MEDS ORDERED: VANCOMYCIN INJ 1,000 MG in SODIUM CHLOR 0.9% 250 ML INJ 250 ML IV SCH (06:45)
[2017-02-11] MEDS ORDERED: POTASSIUM CHLORIDE 20 MEQ CONTROLLED RELEASE TAB PO ONE (06:45)
[2017-02-11] MEDS ORDERED: POVIDONE IODINE 5% (ANTISEPSIS KIT) 4 APPLICATIONS EACH NARE SCH (06:45)
[2017-02-11] MEDS ORDERED: CHLORHEXIDINE GLUCONATE 2 % 1 PACK (2 CLOTHS) TOP SCH (06:45)
[2017-02-11] MEDS ORDERED: ceFAZolin 2 GM PREMIX 50 ML IV SCH (06:45)
[2017-02-11] MEDS ORDERED: MUPIROCIN 2% OINT 1 APPLIC/GM SYR NASAL SCH (06:45)
[2017-02-11] MEDS: ACETAMINOPHEN/HYDROcodone 325 MG/5 MG TAB PO PRN ×2 (06:51→14:23)
[2017-02-11] MEDS: INSULIN ASPART SUPPLEMENTAL SCALE SQ SCH ×4 (07:23→21:00)
[2017-02-11] MEDS: ONDANSETRON HCL 4 MG/2 ML VIAL IVP PRN (08:14)
[2017-02-11] MEDS: GABAPENTIN 300 MG CAP PO SCH ×3 (08:15→17:22)
[2017-02-11] MEDS: DOCUSATE SODIUM 50 MG/SENNA 8.6 MG TAB PO SCH ×3 (08:15→22:02)
[2017-02-11] MEDS: PANTOPRAZOLE SOD 40 MG DELAYED RELEASE TAB PO SCH (08:15)
[2017-02-11] MEDS: SODIUM CHLORIDE 0.9% FLUSH 10 ML FLUSH IV FLUSH SCH ×2 (08:16→21:00)
[2017-02-11] MEDS: ASPIRIN EC 81 MG TABEC PO SCH (08:16)
[2017-02-11] MEDS: ENALAPRILAT 1.25 MG/ML VIAL IV PUSH PRN (08:46)
[2017-02-11] MEDS: LORazepam 2 MG TAB PO SCH ×3 (08:48→17:22)
[2017-02-11] MEDS: ISOSORBIDE MONONITRATE 30 MG TAB PO SCH (08:48)
[2017-02-11] MEDS ORDERED: FUROSEMIDE 40 MG TAB PO SCH (09:00)
--- NOTE | 2017-02-11 09:55 | MB ---
cc: DARIUSZ PINA M.D., OTAKAR MD DATE OF CONSULTATION: February 11, 2017 REASON FOR CONSULTATION Near syncope and symptomatic bradycardia. HISTORY Ms. Xie is a 71-year-old white female, established patient of Dr. Aldrich, with history of bradycardia, hypertension, coronary artery disease, prior CVA, who presented via [facility] to the emergency room with an episode of symptomatic bradycardia last night. The patient was lightheaded and unsteady at home and her daughter called [facility]. Her heart rate initially was in the 40s and she reportedly had a systolic blood pressure in the 70s. Transcutaneous pacing was initiated at home and she was taken to the emergency room here at [place]. The patient was in moderate amount of pain from the pacemaker but was awake and alert on arrival. After discussion with the emergency room Dr. Fletcher, he gave the patient some intravenous fluids and possibly some dopamine initially, and was able to discontinue the transcutaneous pacing. The patient has been off dopamine overnight and has been has been given some intravenous fluids with good success. Her heart rate at this time is 60 in sinus rhythm and her blood pressure is good. She is currently asymptomatic except for some back pain. The patient tells me she has not been eating and drinking very well at home recently. She takes a lot of pain medications for her back which she injured in a fall recently. She has been seeing Dr. Aldrich and has an implanted loop recorder since around May and apparently was told that she needed a permanent pacemaker placed but had declined that up until now. She is now in agreement to that. PAST MEDICAL HISTORY Longstanding hypertension, anxiety disorder, fibromyalgia, CVA, abnormal EKG, CAD, rheumatoid arthritis, bradycardia, she says her stroke affected her right side but that is all improved and she is back to normal. That was about a year or so ago. She denies any history of congestive heart failure, thyroid, liver or kidney disease. She had a pulmonary embolus back in 2013 was treated with Xarelto at that time transiently, that was felt to be related to a recent surgery and she is currently off anticoagulation without recurrence. PAST SURGICAL HISTORY Cholecystectomy, right knee surgery, left knee replacement, and implantable loop recorder. ALLERGIES None known. MEDICATIONS 1. Aspirin 81 mg daily. 2. She had been taking furosemide b.i.d. at home and that is discontinued at this time. 3. Gabapentin 300 milligrams t.i.d. 4. Ativan 2 milligrams t.i.d. 5. Protonix 40 mg daily. 6. Duragesic patch 75 mcg q72 hours. 7. Intravenous normal saline at 100 mL per hour. 8. She was given supplemental potassium last night. 9. Pravastatin 40 milligrams hs. 10. Tylenol. 11. Zofran p.r.n. FAMILY HISTORY: Family history is noncontributory. SOCIAL HISTORY The patient denies tobacco, alcohol or illicit drug use. She is currently living with her ex-, does no regular exercise. REVIEW OF SYSTEMS Denies lower extremity claudication. Denies palpitations, has had frequent lightheadedness but no actual syncopal episodes. Denies fevers, chills, night sweats, nausea, vomiting, diarrhea. Denies any bleeding disorders. Except for that mentioned in HPI a complete 12-point review of systems otherwise negative. PHYSICAL EXAMINATION: Physical examination reveals an elderly obese white female lying in bed in no distress at this time. Vital signs: Blood pressure is 149/68 mmHg, heart rate is 78 and regular, respiratory rate 18, temperature 98.7, oxygen saturation is 98% on room air. Head: Normocephalic and atraumatic. Pupils equal, round and react to light. Sclerae anicteric. Extraocular movements intact. Neck: The neck is supple. There is no adenopathy. No jugular venous distension at 30 degrees. Carotid upstrokes are normal. There are no bruits. Lungs: Clear. Heart: PMI is not displaced. S1-S2 are normal. No murmurs, gallops, clicks or rubs. Abdomen: Obese. Bowel sounds present, soft, nontender. No hepatosplenomegaly, masses or bruits. Extremities: No cyanosis, clubbing or edema. Pulses are intact. Perfusion is adequate in the upper and lower extremities. There are no femoral bruits. Neurologic: Exam is grossly intact. IMAGING STUDIES: EKG: From admission yesterday shows sinus bradycardia rate 42, old inferior infarct, abnormal EKG. There has been no change compared to the available EKG from February 26, 2016. Chest x-ray: No acute cardiopulmonary abnormality identified. X-rays of the thoracic spine: degenerative changes. No acute findings. X-ray of the lumbar spine stable height loss. No acute findings. LABORATORY DATA CBC from this morning white count 11.5, hemoglobin 13.3, platelet count and 184,000. Coags are normal. Chemistries: sodium 140, potassium 3.3, chloride 104, CO2 28.1, BUN 8, creatinine 0.92, glucose 122, AST 13, troponin I x3 sets since admission less than 0.02. TSH 1.69. IMPRESSION 1. Symptomatic bradycardia, currently improved. 2. Hypotension, improved after intravenous fluids. 3. History of hypertension. 4. History of pulmonary embolism. 5. History of CVA. 6. Hypokalemia. PLAN: The patient's potassium will be replaced to 4.0. Intravenous fluids will be discontinued at this time. Continue observation on telemetry. N.p.o. after midnight tonight. I believe she has been recommended permanent pacing by Dr. Aldrich prior to this event and certainly she had significant symptoms yesterday, although they have currently resolved. She will likely benefit from permanent pacemaker implant. I will tentatively schedule that for tomorrow when Dr. Aldrich is back since she is stable from a cardiovascular standpoint at this time. Discussed the plans in detail with the patient and she is in agreement to proceed with that as outlined above. I have discussed plans with the nursing staff. Thank you for allowing us allowing us to participate in the care of this patient. MD MIKE Russell/PRAKASH /6:39 AM /9:04 AM
--- NOTE | 2017-02-11 13:15 | EKG ---
Date Performed: 02/10/2017 Time Performed: 18:37:48 PTAGE: 71 years EKG: Marked sinus bradycardia with a heart rate of 42 Minor nonspecific T-wave flattening PREVIOUS TRACING : 02/26/2016 22.19 Since previous tracing, T-wave changes have improved and heart rate is slower. DOCTOR: Juan Franks Interpretating Date/Time 02/11/2017 13:15:06
[2017-02-11] MEDS: hydrALAZINE HCL 25 MG TAB PO SCH ×2 (14:21→22:02)
[2017-02-11] MEDS ORDERED: NALOXONE HCL 0.4 MG/ML AMP IV PUSH PRN (16:45)
[2017-02-11] MEDS ORDERED: ACETAMINOPHEN/HYDROcodone 325 MG/5 MG TAB PO PRN (16:45)
--- NOTE | 2017-02-11 16:53 | HHI.PR ---
Subjective Remarks Patient says she is feeling a little better today. Less lightheadedness, however still present. Denies any chest pain or shortness of breath. Reports continuous low back pain, requesting increase in the context. Objective Vital Signs Date Time Temp Pulse Resp B/P (MAP) Pulse Ox O2 Delivery O2 Flow Rate FiO2 02/11/17 16:00 62 02/11/17 15:28 98.3 61 18 168/68 (101) 98 02/11/17 15:00 61 02/11/17 14:00 67 02/11/17 13:00 66 02/11/17 12:00 98.4 62 18 147/74 (98) 98 02/11/17 12:00 62 02/11/17 11:00 57 02/11/17 10:00 55 02/11/17 09:00 62 02/11/17 08:30 170/72 (104) 02/11/17 08:00 60 02/11/17 08:00 98.5 60 18 196/80 (118) 98 02/11/17 07:51 20 02/11/17 07:00 65 02/11/17 06:01 78 02/11/17 05:01 62 02/11/17 04:41 18 02/11/17 04:00 61 02/11/17 03:02 18 02/11/17 03:00 60 02/11/17 02:12 98.7 50 18 149/68 (95) 98 02/11/17 00:39 02/10/17 23:00 54 17 159/67 (97) 95 Nasal Cannula 2.00 02/10/17 22:00 48 18 138/58 (84) 97 Nasal Cannula 2.00 02/10/17 21:00 46 18 117/56 (76) 95 Nasal Cannula 2.00 02/10/17 20:00 42 18 131/58 (82) 95 Nasal Cannula 2.00 02/10/17 19:11 43 18 116/55 (75) 94 Nasal Cannula 2.00 02/10/17 18:43 43 18 114/56 (75) 95 Nasal Cannula 2.00 02/10/17 18:13 70 18 96 Nasal Cannula 2.00 02/10/17 18:09 98.3 79 18 171/63 (99) 96 Nasal Cannula 2.00 02/10/17 18:07 18 97 Nasal Cannula 2.00 02/10/17 18:07 97 Nasal Cannula 2.00 I/O 02/10/17 02/10/17 02/10/17 02/11/17 02/11/17 02/11/17 07:00 15:00 23:00 07:00 15:00 23:00 Intake Total 541 ml Output Total 150 ml Balance 391 ml Intake Oral 240 ml IV Total 301 ml Output Urine Total 150 ml Result Diagram: 02/11/17 0500 02/11/17 0500 Objective Remarks GENERAL: Patient sitting up in bed. Appears comfortable. SKIN: Warm and dry. HEAD: Normocephalic. EYES: No scleral icterus. No injection or drainage. NECK: Supple, trachea midline. No JVD. CARDIOVASCULAR: Regular rate and rhythm without murmurs, gallops, or rubs. RESPIRATORY: Breath sounds equal bilaterally. No accessory muscle use. GASTROINTESTINAL: Abdomen soft, non-tender, nondistended. MUSCULOSKELETAL: No cyanosis, or edema. BACK: Nontender without obvious deformity. No CVA tenderness. A/P Assessment and Plan // Symptomatically Bradycardia: chronic, follows w/ Dr. Aldrich, previously refused Pacer. HR 40's upon arrival, Dr. Child consulted by ER physician, recommended Dopamine as needed. Will eval in am. Initial trop negative, check serial cardiac enzymes to r/o underlying ischemia. Echo 02/05/16 w/ EF 60-65%. Telemetry. = Bradycardia improved with holding Coreg. Continue to monitor. Plan per cardiology. //Hypokalemia: K+ 3.0 on admission.. = Replaced. 3.3 this morning Continue to monitor. // SANDRA: Creatinine 1.17, previously 0.60 on 02/29/16. = Discontinue IV fluids. Continue home medications. Order strict intake and output monitoring. //Diabetes mellitus. Sugars controlled. Continue insulin sliding scale. //Hypertension. Blood pressure continues elevated today in the 160s systolic. Start isosorbide, increase hydralazine. // Leukocytosis: WBC 11, afebrile, no signs of infection. CXR w/ no acute findings, images reviewed by me. = Repeat leukocytosis also on the 11's. No signs of infection. Continue to monitor. //Chronic back pain. Continue narcotics. Monitor closely. // DVT Prophylaxis: SCD/Teds. Discharge Planning Home when cleared by cardiology. Rodney Goode MD Feb 11, 2017 16:53
[2017-02-11] MEDS ORDERED: MAGNESIUM OXIDE 400 MG TAB PO ONE (17:00)
[2017-02-11] MEDS: ACETAMINOPHEN/HYDROcodone 325 MG/7.5 MG TAB PO PRN (17:27)
[2017-02-11] MEDS: PRAVASTATIN SOD 40 MG TAB PO SCH (22:02)
[2017-02-11] MEDS: TEMAZEPAM 7.5 MG CAP PO PRN (22:02)
[2017-02-11] MEDS: FENOFIBRATE 145 MG TAB PO SCH (22:03)
[2017-02-12] VITALS (24 sets, daily range): BP systolic 137–191; BP diastolic 65–78; PULSE 52–84; RESP 16–20; TEMP 97.5–98.9; O2SAT 94–98
[2017-02-12] MEDS: ONDANSETRON HCL 4 MG/2 ML VIAL IVP PRN (01:39)
[2017-02-12] MEDS: MORPHINE SULFATE 4 MG/ML INJ IV PUSH PRN ×3 (01:48→18:55)
[2017-02-12] MEDS: ACETAMINOPHEN/HYDROcodone 325 MG/7.5 MG TAB PO PRN ×5 (03:04→20:35)
[2017-02-12 04:59] LABS: AUTOMATED NEUTROPHIL # 5.1 TH/MM3 (1.8-7.7); BASOPHIL # 0.1 TH/MM3 (0-0.2); BASOPHIL % 0.6 % (0.0-2.0); EOSINOPHIL # 0.3 TH/MM3 (0-0.4); EOSINOPHIL % 3.3 % (0.0-4.0); HEMATOCRIT 39.7 % (35.0-46.0); HEMO FLAGS DIFF FINAL; LYMPH % 31.7 % (9.0-44.0); MEAN CELL VOLUME 83.8 FL (80.0-100.0); MEAN CORPUSCULAR HEMOGLOBIN 27.7 PG (27.0-34.0); MEAN CORPUSCULAR HGB CONC 33.1 % (32.0-36.0); MONO % 11.1 % (0.0-8.0); NEUT % 53.3 % (16.0-70.0); PLATELET COUNT 409 TH/MM3 (150-450); RED BLOOD COUNT 4.74 MIL/MM3 (4.00-5.30); RED CELL DISTRIBUTION WIDTH 14.8 % (11.6-17.2); WHITE BLOOD COUNT 9.5 TH/MM3 (4.0-11.0)
[2017-02-12] MEDS: hydrALAZINE HCL 25 MG TAB PO SCH ×3 (05:14→20:25)
[2017-02-12 05:22] LABS: BICARBONATE 31.6 MEQ/L (21.0-32.0); MAGNESIUM 1.6 MG/DL (1.5-2.5); POTASSIUM 3.5 MEQ/L (3.5-5.1)
[2017-02-12] MEDS: INSULIN ASPART SUPPLEMENTAL SCALE SQ SCH ×4 (08:00→20:35)
[2017-02-12] MEDS: ENALAPRILAT 1.25 MG/ML VIAL IV PUSH PRN (08:18)
[2017-02-12] MEDS: ASPIRIN EC 81 MG TABEC PO SCH (08:18)
[2017-02-12] MEDS: PANTOPRAZOLE SOD 40 MG DELAYED RELEASE TAB PO SCH (08:19)
[2017-02-12] MEDS: GABAPENTIN 300 MG CAP PO SCH ×3 (08:19→17:06)
[2017-02-12] MEDS: DOCUSATE SODIUM 50 MG/SENNA 8.6 MG TAB PO SCH ×2 (08:19→20:24)
[2017-02-12] MEDS: LORazepam 2 MG TAB PO SCH ×3 (08:19→17:06)
[2017-02-12] MEDS: ISOSORBIDE MONONITRATE 30 MG TAB PO SCH (08:19)
[2017-02-12] MEDS: SODIUM CHLORIDE 0.9% FLUSH 10 ML FLUSH IV FLUSH SCH ×2 (08:20→20:25)
--- NOTE | 2017-02-12 14:46 | HHI.PR ---
Subjective Remarks Patient says she is feeling all right today. Walking around without much difficulty. She reports constant low back pain continues for the past 2 weeks. Also dull abdominal distention type sensation continues for the past 2 weeks. She denies any constipation. Denies any nausea or vomiting. Objective Vital Signs Date Time Temp Pulse Resp B/P (MAP) Pulse Ox O2 Delivery O2 Flow Rate FiO2 02/12/17 14:00 56 02/12/17 13:00 52 02/12/17 12:00 52 02/12/17 11:00 58 02/12/17 11:00 98.0 58 18 190/78 (115) 96 02/12/17 10:00 72 02/12/17 09:00 68 02/12/17 08:00 60 02/12/17 07:51 55 02/12/17 07:51 97.5 62 18 190/78 (115) 98 02/12/17 06:00 59 02/12/17 05:08 56 02/12/17 04:09 58 02/12/17 03:53 18 02/12/17 03:20 98.1 76 20 191/74 (113) 96 02/12/17 03:00 62 02/12/17 02:06 62 02/12/17 02:06 18 02/12/17 01:09 60 02/12/17 00:03 62 02/11/17 23:00 98.2 51 18 182/74 (110) 94 02/11/17 23:00 63 02/11/17 22:00 52 02/11/17 21:00 60 02/11/17 20:00 62 02/11/17 19:36 98.4 55 18 164/71 (102) 93 02/11/17 19:00 64 02/11/17 17:00 66 02/11/17 16:00 62 02/11/17 15:28 98.3 61 18 168/68 (101) 98 02/11/17 15:00 61 I/O 02/11/17 02/11/17 02/11/17 02/12/17 02/12/17 02/12/17 07:00 15:00 23:00 07:00 15:00 23:00 Intake Total 541 ml 875 ml 480 ml Output Total 150 ml 800 ml 325 ml Balance 391 ml 75 ml 155 ml Intake Oral 240 ml 875 ml 480 ml IV Total 301 ml Output Urine Total 150 ml 800 ml 325 ml # Bowel Movements 0 Result Diagram: 02/12/1743802/12/17438 Objective Remarks GENERAL: Patient sitting up in bed. Appears comfortable. SKIN: Warm and dry. HEAD: Normocephalic. EYES: No scleral icterus. No injection or drainage. NECK: Supple, trachea midline. No JVD. CARDIOVASCULAR: Regular rate and rhythm without murmurs, gallops, or rubs. RESPIRATORY: Breath sounds equal bilaterally. No accessory muscle use. GASTROINTESTINAL: Abdomen soft, non-tender, nondistended. Positive bowel sounds. MUSCULOSKELETAL: No cyanosis, or edema. BACK: Nontender without obvious deformity. No CVA tenderness. A/P Assessment and Plan // Symptomatically Bradycardia: chronic, follows w/ Dr. Aldrich, previously refused Pacer. HR 40's upon arrival, Dr. Child consulted by ER physician, recommended Dopamine as needed. Will eval in am. Initial trop negative, check serial cardiac enzymes to r/o underlying ischemia. Echo 02/05/16 w/ EF 60-65%. Telemetry. = Bradycardia improved with holding Coreg. Continue to monitor. Plan per cardiology. Appreciate assistance //Hypokalemia: K+ 3.0 on admission.. = Resolved with replacement // SANDRA: Creatinine 1.17, previously 0.60 on 02/29/16. = Discontinue IV fluids. Continue home medications. Order strict intake and output monitoring. = Resolved. //Polypharmacy. Patient is on narcotics, benzos. Patient is amenable to home health for medication management. //Diabetes mellitus. Sugars controlled. Continue insulin sliding scale. //Hypertension. Blood pressure continues elevated today in the 190s systolic. Holding Coreg.Continue Imdur. Start on lisinopril. Increase hydralazine. Continue to monitor. // Leukocytosis: WBC 11, on admission. Afebrile. Resolved. //Chronic back pain. Continue narcotics. Patient appears to have spasm of abdominal muscles secondary to back pain. Recommend following up with physical therapy as outpatient. Monitor closely. // DVT Prophylaxis: SCD/Teds. Discharge Planning Home when cleared by cardiology. Will need home health physical therapy, as well as home health nursing for medication management. Rodney Goode MD Feb 12, 2017 14:46
--- NOTE | 2017-02-12 14:48 | HHI.FF ---
Face to Face Verification Diagnosis: (1) Generalized weakness (2) Acute exacerbation of chronic low back pain (3) Fall Physical Therapy Order: Evaluate and Treat Home Health Nursing Order: Nursing assessment with vital signs Instructions: Home health nursing for medication management. I have seen patient Chata Xie on 02/12/17. My clinical findings support the need for the requested home health care services because: Deconditioned w/ increased weakness Med compliance is questionable Limited ability to care for self I certify that my clinical findings support that this patient is homebound because: Unsafe to leave home unassisted Rodney Goode MD Feb 12, 2017 14:48
[2017-02-12] MEDS ORDERED: WALKER WHEELS/F1 MIS (14:56)
--- NOTE | 2017-02-12 14:56 | PD.CARD.PN ---
Subjective Subjective Remarks No CP, mild SOB, c/o severe back pain, also abdominal pain; HR normalized off carvedilol Objective Medications Current Medications Medications (Trade) Dose Ordered Sig/Andrea Route Start Time Stop Time Status Last Admin (Brethine Inj) 1 mg UNSCH PRN SQ 02/10/17 18:15 (NS Flush) 2 ml UNSCH PRN IV FLUSH 02/10/17 19:45 (NS Flush) 2 ml BID IV FLUSH 02/10/17 21:00 02/12/17 08:20 (Zofran Inj) 4 mg Q6H PRN IVP 02/10/17 19:45 02/12/17 01:39 (Tylenol) 650 mg Q6H PRN PO 02/10/17 19:45 (Morphine Inj) 2 mg Q3H PRN IV PUSH 02/10/17 19:45 02/12/17 09:21 (Sofi-Colace) 1 tab BID PO 02/10/17 21:00 02/12/17 08:19 (Milk Of Magnesia Liq) 30 ml Q12H PRN PO 02/10/17 19:45 (Senokot) 17.2 mg Q12H PRN PO 02/10/17 19:45 (Dulcolax Supp) 10 mg DAILY PRN RECTAL 02/10/17 19:45 (Lactulose Liq) 30 ml DAILY PRN PO 02/10/17 19:45 (D50w (Vial) Inj) 50 ml UNSCH PRN IV PUSH 02/10/17 21:00 (Glucagon Inj) 1 mg UNSCH PRN OTHER 02/10/17 21:00 (NovoLOG SUPPLEMENTAL SCALE) 1 ACHS SLIDING SCALE SQ 02/10/17 21:00 02/12/17 12:00 (Ecotrin Ec) 81 mg DAILY PO 02/11/17 09:00 02/12/17 08:18 (Tricor) 145 mg HS PO 02/10/17 21:00 02/11/17 22:03 (Duragesic 75 Mcg Patch.72 Hr) 1 patch Q72H T-DERMAL 02/10/17 22:00 02/10/17 22:49 (Neurontin) 300 mg TID PO 02/11/17 09:00 02/12/17 12:17 (Ativan) 2 mg TID PO 02/11/17 09:00 02/12/17 12:17 (Protonix) 40 mg DAILY PO 02/11/17 09:00 02/12/17 08:19 (Pravachol) 40 mg HS PO 02/10/17 21:00 02/11/17 22:02 Miscellaneous Information 1 Q3D T-DERMAL 02/13/17 22:00 Cefazolin Sodium/ Dextrose 50 ml @ 100 mls/hr DIRECTOR POWER IV 02/11/17 06:45 02/14/17 06:44 Vancomycin HCl 1000 mg/Sodium Chloride 250 ml @ 250 mls/hr DIRECTOR POWER IV 02/11/17 06:45 02/15/17 06:44 (Betadine 5% Antisepsis Kit) 1 applic DIRECTOR POWER EACH NARE 02/11/17 06:45 02/15/17 06:44 (Bactroban Nasal 2% Oint) 1 applic DIRECTOR POWER NASAL 02/11/17 06:45 02/15/17 06:44 (Chlorhexidine 2% Cloth) 3 pack DIRECTOR POWER TOP 02/11/17 06:45 02/15/17 06:44 (Imdur) 30 mg DAILY PO 02/11/17 09:00 02/12/17 08:19 (Vasotec Inj) 1.25 mg Q6H PRN IV PUSH 02/11/17 08:45 02/12/17 08:18 (Culloden 5-325 Mg) 1 tab Q4H PRN PO 02/11/17 16:45 ([place]oden 7.5-325 Mg) 1 tab Q4H PRN PO 02/11/17 16:45 02/12/17 12:17 (Narcan Inj) 0.4 mg UNSCH PRN IV PUSH 02/11/17 16:45 (Restoril) 7.5 mg HS PRN PO 02/11/17 18:00 02/11/17 22:02 (Apresoline) 50 mg Q8HR PO 02/12/17 14:00 02/12/17 14:24 (Prinivil) 5 mg ONCE ONCE PO 02/12/17 15:00 02/12/17 15:01 (Prinivil) 5 mg DAILY PO 02/13/17 09:00 Vital Signs / I&O Vital Signs Date Time Temp Pulse Resp B/P (MAP) Pulse Ox O2 Delivery O2 Flow Rate FiO2 02/12/17 14:00 56 02/12/17 13:00 52 02/12/17 12:00 52 02/12/17 11:00 58 02/12/17 11:00 98.0 58 18 190/78 (115) 96 02/12/17 10:00 72 02/12/17 09:00 68 02/12/17 08:00 60 02/12/17 07:51 55 02/12/17 07:51 97.5 62 18 190/78 (115) 98 02/12/17 06:00 59 02/12/17 05:08 56 02/12/17 04:09 58 02/12/17 03:53 18 02/12/17 03:20 98.1 76 20 191/74 (113) 96 02/12/17 03:00 62 02/12/17 02:06 62 02/12/17 02:06 18 02/12/17 01:09 60 02/12/17 00:03 62 02/11/17 23:00 98.2 51 18 182/74 (110) 94 02/11/17 23:00 63 02/11/17 22:00 52 02/11/17 21:00 60 02/11/17 20:00 62 02/11/17 19:36 98.4 55 18 164/71 (102) 93 02/11/17 19:00 64 02/11/17 17:00 66 02/11/17 16:00 62 02/11/17 15:28 98.3 61 18 168/68 (101) 98 02/11/17 15:00 61 I/O 02/11/17 02/11/17 02/11/17 02/12/17 02/12/17 02/12/17 07:00 15:00 23:00 07:00 15:00 23:00 Intake Total 541 ml 875 ml 480 ml Output Total 150 ml 800 ml 325 ml Balance 391 ml 75 ml 155 ml Intake Oral 240 ml 875 ml 480 ml IV Total 301 ml Output Urine Total 150 ml 800 ml 325 ml # Bowel Movements 0 Physical Exam GENERAL: In moderate distress due to back pain. SKIN: Warm and dry. HEAD: Normocephalic. EYES: No scleral icterus. No injection or drainage. NECK: Supple, trachea midline. No JVD or lymphadenopathy. CARDIOVASCULAR: Regular rate and rhythm without murmurs, gallops, or rubs. RESPIRATORY: Breath sounds equal bilaterally. No accessory muscle use. GASTROINTESTINAL: Abdomen soft, non-tender, nondistended. Obese. MUSCULOSKELETAL: No cyanosis, mild edema. Laboratory Laboratory Tests Test 02/12/17 04:39 White Blood Count 9.5 TH/MM3 Red Blood Count 4.74 MIL/MM3 Hemoglobin 13.1 GM/DL Hematocrit 39.7 % Mean Corpuscular Volume 83.8 FL Mean Corpuscular Hemoglobin 27.7 PG Mean Corpuscular Hemoglobin Concent 33.1 % Red Cell Distribution Width 14.8 % Platelet Count 409 TH/MM3 Mean Platelet Volume 6.9 FL Neutrophils (%) (Auto) 53.3 % Lymphocytes (%) (Auto) 31.7 % Monocytes (%) (Auto) 11.1 % Eosinophils (%) (Auto) 3.3 % Basophils (%) (Auto) 0.6 % Neutrophils # (Auto) 5.1 TH/MM3 Lymphocytes # (Auto) 3.0 TH/MM3 Monocytes # (Auto) 1.1 TH/MM3 Eosinophils # (Auto) 0.3 TH/MM3 Basophils # (Auto) 0.1 TH/MM3 CBC Comment DIFF FINAL Differential Comment Blood Urea Nitrogen 8 MG/DL Creatinine 0.81 MG/DL Random Glucose 122 MG/DL Albumin 3.1 GM/DL Calcium Level 9.0 MG/DL Phosphorus Level 3.0 MG/DL Magnesium Level 1.6 MG/DL Sodium Level 142 MEQ/L Potassium Level 3.5 MEQ/L Chloride Level 105 MEQ/L Carbon Dioxide Level 31.6 MEQ/L Anion Gap 5 MEQ/L Estimat Glomerular Filtration Rate 69 ML/MIN Assessment and Plan Problem List: (1) Symptomatic bradycardia ICD Codes: R00.1 - Bradycardia, unspecified (2) Acute exacerbation of chronic low back pain ICD Codes: M54.5 - Low back pain; G89.29 - Other chronic pain Status: Acute (3) Fall ICD Codes: W19.XXXA - Unspecified fall, initial encounter (4) HTN (hypertension) ICD Codes: I10 - HTN (hypertension) Status: Chronic (5) Chronic kidney disease (CKD), stage III (moderate) ICD Codes: N18.3 - Chronic kidney disease, stage 3 (moderate) Status: Acute (6) Type 2 diabetes mellitus ICD Codes: E11.9 - Type 2 diabetes mellitus without complications Status: Chronic (7) Renal insufficiency ICD Codes: N28.9 - Disorder of kidney and ureter, unspecified Assessment and Plan Bradycardia and hypotension exacerbated by carvedilol. Now improved off beta matthew. BP high, but the patient is in significant distress due to back pain. Doubt she can benefit from pacemaker placement at this time. Continue monitoring on telemetry. Increase activity. Pain control. D/w pt and daughter. Alexandria Aldrich MD Feb 12, 2017 14:56
[2017-02-12] MEDS ORDERED: LISINOPRIL 5 MG TAB PO ONE (15:00)
--- NOTE | 2017-02-12 19:25 | EKG ---
Date Performed: 02/11/2017 Time Performed: 15:56:02 PTAGE: 71 years EKG: Sinus rhythm Anterolateral ST-T changes are nonspecific Borderline ECG Since PREVIOUS TRACING , no significant change noted PREVIOUS TRACIN02/10/2017 18.37 DOCTOR: Yeny Nugent Interpretating Date/Time 02/12/2017 19:24:30
[2017-02-12] MEDS: PRAVASTATIN SOD 40 MG TAB PO SCH (20:24)
[2017-02-12] MEDS: FENOFIBRATE 145 MG TAB PO SCH (20:24)
[2017-02-12] MEDS: TEMAZEPAM 7.5 MG CAP PO PRN (20:25)
[2017-02-13] VITALS (29 sets, daily range): BP systolic 133–179; BP diastolic 63–80; PULSE 60–98; RESP 16–20; TEMP 97.6–98.1; O2SAT 93–97
[2017-02-13] MEDS: ACETAMINOPHEN/HYDROcodone 325 MG/7.5 MG TAB PO PRN ×2 (03:11→08:42)
[2017-02-13] MEDS: ENALAPRILAT 1.25 MG/ML VIAL IV PUSH PRN (03:12)
[2017-02-13] MEDS: hydrALAZINE HCL 25 MG TAB PO SCH ×3 (06:06→21:29)
[2017-02-13] MEDS: INSULIN ASPART SUPPLEMENTAL SCALE SQ SCH ×4 (08:00→22:16)
[2017-02-13] MEDS: PANTOPRAZOLE SOD 40 MG DELAYED RELEASE TAB PO SCH (08:43)
[2017-02-13] MEDS: GABAPENTIN 300 MG CAP PO SCH ×3 (08:43→17:11)
[2017-02-13] MEDS: LISINOPRIL 5 MG TAB PO SCH (08:43)
[2017-02-13] MEDS: ISOSORBIDE MONONITRATE 30 MG TAB PO SCH (08:43)
[2017-02-13] MEDS: LORazepam 2 MG TAB PO SCH ×3 (08:43→17:10)
[2017-02-13] MEDS: SODIUM CHLORIDE 0.9% FLUSH 10 ML FLUSH IV FLUSH SCH ×2 (08:44→21:00)
[2017-02-13] MEDS: ASPIRIN EC 81 MG TABEC PO SCH (08:44)
[2017-02-13] MEDS: DOCUSATE SODIUM 50 MG/SENNA 8.6 MG TAB PO SCH ×2 (09:00→21:29)
[2017-02-13] MEDS: MORPHINE SULFATE 4 MG/ML INJ IV PUSH PRN (10:15)
--- NOTE | 2017-02-13 11:25 | HHI.PR ---
Subjective Remarks Follow-up uncontrolled blood pressure. Bradycardia resolved off the beta matthew Still has chronic pain. Not controlled on what we have here we will adjust all medications A.m. labs PT and OT Will need home health care at discharge RE-ADD NORVASC SWITCH TO PERCOCET 10/325 Q6 ROBAXIN 1000MG PO Q8 Objective Vitals Vital Signs Date Time Temp Pulse Resp B/P (MAP) Pulse Ox O2 Delivery O2 Flow Rate FiO2 02/13/17 08:45 97.6 87 18 155/68 (97) 97 02/13/17 06:10 72 02/13/17 05:00 61 02/13/17 04:03 71 02/13/17 04:03 17 02/13/17 03:59 156/65 (95) 02/13/17 03:00 68 02/13/17 03:00 98.1 60 18 177/72 (107) 94 02/13/17 02:03 79 02/13/17 01:10 62 02/13/17 00:19 69 02/12/17 23:00 59 02/12/17 23:00 98.9 71 18 150/65 (93) 96 02/12/17 22:00 66 02/12/17 21:00 65 02/12/17 19:00 97.8 65 18 173/72 (105) 97 02/12/17 19:00 63 02/12/17 18:00 84 02/12/17 17:00 82 02/12/17 16:00 54 02/12/17 15:00 97.6 53 16 137/67 (90) 94 02/12/17 15:00 56 02/12/17 14:00 56 02/12/17 13:00 52 02/12/17 12:00 52 I/O 02/12/17 02/12/17 02/12/17 02/13/17 02/13/17 02/13/17 07:00 15:00 23:00 07:00 15:00 23:00 Intake Total 480 ml 480 ml 480 ml Output Total 325 ml 610 ml 350 ml Balance 155 ml -130 ml 130 ml Intake Oral 480 ml 480 ml 480 ml Output Urine Total 325 ml 610 ml 350 ml # Bowel Movements 0 0 Result Diagram: 02/12/17 0439 02/12/179 Other Results Laboratory Tests Test 02/10/17 18:06 02/11/17 00:00 02/11/17 05:00 02/12/17 04:39 White Blood Count 11.2 TH/MM3 11.5 TH/MM3 9.5 TH/MM3 Red Blood Count 4.73 MIL/MM3 4.64 MIL/MM3 4.74 MIL/MM3 Hemoglobin 13.0 GM/DL 13.3 GM/DL 13.1 GM/DL Hematocrit 39.5 % 39.0 % 39.7 % Mean Corpuscular Volume 83.4 FL 84.2 FL 83.8 FL Mean Corpuscular Hemoglobin 27.5 PG 28.7 PG 27.7 PG Mean Corpuscular Hemoglobin Concent 32.9 % 34.1 % 33.1 % Red Cell Distribution Width 14.6 % 14.9 % 14.8 % Platelet Count 433 TH/MM3 384 TH/MM3 409 TH/MM3 Mean Platelet Volume 7.3 FL 7.2 FL 6.9 FL Neutrophils (%) (Auto) 53.9 % 60.4 % 53.3 % Lymphocytes (%) (Auto) 32.1 % 27.0 % 31.7 % Monocytes (%) (Auto) 11.2 % 9.6 % 11.1 % Eosinophils (%) (Auto) 2.3 % 2.3 % 3.3 % Basophils (%) (Auto) 0.5 % 0.7 % 0.6 % Neutrophils # (Auto) 6.0 TH/MM3 6.9 TH/MM3 5.1 TH/MM3 Lymphocytes # (Auto) 3.6 TH/MM3 3.1 TH/MM3 3.0 TH/MM3 Monocytes # (Auto) 1.3 TH/MM3 1.1 TH/MM3 1.1 TH/MM3 Eosinophils # (Auto) 0.3 TH/MM3 0.3 TH/MM3 0.3 TH/MM3 Basophils # (Auto) 0.1 TH/MM3 0.1 TH/MM3 0.1 TH/MM3 CBC Comment DIFF FINAL DIFF FINAL DIFF FINAL Differential Comment Prothrombin Time 12.2 SEC Prothromb Time International Ratio 1.1 RATIO Activated Partial Thromboplast Time 28.9 SEC Blood Urea Nitrogen 12 MG/DL 8 MG/DL 8 MG/DL Creatinine 1.17 MG/DL 0.92 MG/DL 0.81 MG/DL Random Glucose 120 MG/DL 122 MG/DL 122 MG/DL Total Protein 7.2 GM/DL 7.4 GM/DL Albumin 3.2 GM/DL 3.1 GM/DL 3.1 GM/DL Calcium Level 8.1 MG/DL 8.2 MG/DL 9.0 MG/DL Alkaline Phosphatase 55 U/L 53 U/L Aspartate Amino Transf (AST/SGOT) 14 U/L 13 U/L Alanine Aminotransferase (ALT/SGPT) 15 U/L 14 U/L Total Bilirubin 0.3 MG/DL 0.4 MG/DL Sodium Level 136 MEQ/L 140 MEQ/L 142 MEQ/L Potassium Level 3.0 MEQ/L 3.3 MEQ/L 3.5 MEQ/L Chloride Level 99 MEQ/L 104 MEQ/L 105 MEQ/L Carbon Dioxide Level 29.2 MEQ/L 28.1 MEQ/L 31.6 MEQ/L Anion Gap 8 MEQ/L 8 MEQ/L 5 MEQ/L Estimat Glomerular Filtration Rate 45 ML/MIN 60 ML/MIN 69 ML/MIN Total Creatine Kinase 33 U/L Troponin I LESS THAN 0.02 NG/ML LESS THAN 0.02 NG/ML LESS THAN 0.02 NG/ML B-Type Natriuretic Peptide 42 PG/ML Thyroid Stimulating Hormone 3rd Gen 1.690 uIU/ML Magnesium Level 1.5 MG/DL 1.6 MG/DL Phosphorus Level 3.0 MG/DL Imaging Last Impressions Thoracic Spine X-Ray 02/10/[id number] Signed Impressions: Service Date/Time: Friday, February 10, 2017 20:19 - CONCLUSION: There are degenerative changes throughout the thoracic spine. No acute finding is seen. Kevin Recinos MD Lumbar Spine X-Ray 02/10/171807 Signed Impressions: Service Date/Time: Friday, February 10, 2017 20:20 - CONCLUSION: Stable examination of the lumbar spine with height loss at the superior endplate of T12 and L2. No acute finding is identified. Kevin Recinos MD Chest X-Ray 02/10/171801 Signed Impressions: Service Date/Time: Friday, February 10, 2017 18:04 - CONCLUSION: No acute cardiopulmonary abnormality is identified. Kevin Recinos MD Objective Remarks GENERAL: Awake alert oriented oriented 3 --talkative and cooperative SKIN: Warm and dry. HEAD: Atraumatic. Normocephalic. EYES: Pupils equal and round. No scleral icterus. No injection or drainage. Extraocular muscles intact ENT: No nasal bleeding or discharge. Mucous membranes pink and moist. Tongue is midline NECK: Trachea midline. No JVD. Supple CARDIOVASCULAR: Regular rate and rhythm. S1 and S2 no S3 or S4 no heave or thrill or rub or gallop RESPIRATORY: No accessory muscle use. Clear to auscultation. Breath sounds equal bilaterally. GASTROINTESTINAL: Abdomen soft, non-tender, nondistended. Hepatic and splenic margins not palpable. Obese MUSCULOSKELETAL: Extremities without clubbing, cyanosis, or edema. No obvious deformities. NEUROLOGICAL: Awake and alert. No obvious cranial nerve deficits. Motor grossly within normal limits. 4 out of 5 muscle strength in the arms and legs. Normal speech. PSYCHIATRIC: Appropriate mood and affect; insight and judgment normal. Medications and IVs Current Medications Lorazepam (Ativan Inj) 1 mg ONCE ONCE IV PUSH Last administered on 02/10/17 18:13; Start 02/10/17 at 18:15; Stop 02/10/17 at 18:16; Status DC Dopamine HCl/ Dextrose 500 ml @ 0 mls/hr TITRATE PRN IV Blood Pressure Management; Start 02/10/17 at 18:15; Stop 02/10/17 at 19:35; Status DC Terbutaline Sulfate (Brethine Inj) 1 mg UNSCH PRN SQ For Extravasation; Start 02/10/17 at 18:15 Sodium Chloride 1,000 ml @ 100 mls/hr Q10H IV Last administered on 02/10/17 18:19; Start 02/10/17 at 18:15; Stop 02/10/17 at 19:53; Status DC Potassium Chloride (KCl) 40 meq ONCE ONCE PO Last administered on 02/10/17 21:09; Start 02/10/17 at 20:00; Stop 02/10/17 at 20:01; Status DC Sodium Chloride 1,000 ml @ 0 mls/hr Q10H IV Last administered on 02/11/17 05 :06; Start 02/10/17 at 20:00; Stop 02/11/17 at 16:45; Status DC Sodium Chloride (NS Flush) 2 ml UNSCH PRN IV FLUSH FLUSH AFTER USING IV ACCESS ; Start 02/10/17 at 19:45 Sodium Chloride (NS Flush) 2 ml BID IV FLUSH Last administered on 02/13/17 08 :44; Start 02/10/17 at 21:00 Ondansetron HCl (Zofran Inj) 4 mg Q6H PRN IVP NAUSEA OR VOMITING Last administered on 02/12/17 01:39; Start 02/10/17 at 19:45 Acetaminophen (Tylenol) 650 mg Q6H PRN PO FEVER/PAIN SCALE 1 TO 2; Start 02/10 at 19:45 Acetaminophen/ Hydrocodone Bitart (Burton 5-325 Mg) 1 tab Q4H PRN PO PAIN SCALE 3 TO 5 Last administered on 02/11/17 14:23; Start 02/10/17 at 19:45; Stop 02/11/17 at 16:54; Status DC Morphine Sulfate (Morphine Inj) 2 mg Q3H PRN IV PUSH Pain 6-10 Last administered on 02/13/17 10:15; Start 02/10/17 at 19:45 Senna/Docusate Sodium (Sofi-Colace) 1 tab BID PO Last administered on 20:24; Start 02/10/17 at 21:00 Magnesium Hydroxide (Milk Of Magnesia Liq) 30 ml Q12H PRN PO Mild constipation ; Start 02/10/17 at 19:45 Sennosides (Senokot) 17.2 mg Q12H PRN PO Moderate constipation; Start at 19:45 Bisacodyl (Dulcolax Supp) 10 mg DAILY PRN RECTAL SEVERE CONSITIPATION; Start 02/10/17 at 19:45 Lactulose (Lactulose Liq) 30 ml DAILY PRN PO SEVERE CONSITIPATION; Start 02/10 at 19:45 Dextrose (D50w (Vial) Inj) 50 ml UNSCH PRN IV PUSH HYPOGLYCEMIA-SEE COMMENTS; Start 02/10/17 at 21:00 Glucagon (Glucagon Inj) 1 mg UNSCH PRN OTHER HYPOGLYCEMIA-SEE COMMENTS; Start 02/10/17 at 21:00 Insulin Aspart (NovoLOG SUPPLEMENTAL SCALE) 1 ACHS SLIDING SCALE SQ Last administered on 02/12/17 12:00; Start 02/10/17 at 21:00 Aspirin (Ecotrin Ec) 81 mg DAILY PO Last administered on 02/13/17 08:44; Start 02/11/17 at 09:00 Fenofibrate (Tricor) 145 mg HS PO Last administered on 02/12/17 20:24; Start 02/10/17 at 21:00 Fentanyl (Duragesic 75 Mcg Patch.72 Hr) 1 patch Q72H T-DERMAL Last administered on 02/10/17 22:49; Start 02/10/17 at 22:00 Furosemide (Lasix) 40 mg BID@09,18 PO ; Start 02/11/17 at 09:00; Stop at 09:00; Status DC Gabapentin (Neurontin) 300 mg TID PO Last administered on 02/13/17 08:43; Start 02/11/17 at 09:00 Lorazepam (Ativan) 2 mg TID PO Last administered on 02/13/17 08:43; Start at 09:00 Pantoprazole Sodium (Protonix) 40 mg DAILY PO Last administered on 02/13/17 08:43; Start 02/11/17 at 09:00 Pravastatin Sodium (Pravachol) 40 mg HS PO Last administered on 02/12/17 20: 24; Start 02/10/17 at 21:00 Miscellaneous Information 1 Q3D T-DERMAL ; Start 02/13/17 at 22:00 Potassium Chloride (KCl) 40 meq ONCE ONCE PO Last administered on 02/11/17 08:16; Start 02/11/17 at 06:45; Stop 02/11/17 at 06:46; Status DC Cefazolin Sodium/ Dextrose 50 ml @ 100 mls/hr VENDING MACHINE REFILLER IV ; Start 02/11/17 at 06:45; Stop 02/14/17 at 06:44 Vancomycin HCl 1000 mg/Sodium Chloride 250 ml @ 250 mls/hr VENDING MACHINE REFILLER IV ; Start 02/11/17 at 06:45; Stop 02/15/17 at 06:44 Povidone Iodine (Betadine 5% Antisepsis Kit) 1 applic VENDING MACHINE REFILLER EACH NARE ; Start 02/11/17 at 06:45; Stop 02/15/17 at 06:44 Mupirocin (Bactroban Nasal 2% Oint) 1 applic VENDING MACHINE REFILLER NASAL ; Start 02/11/17 at 06:45; Stop 02/15/17 at 06:44 Chlorhexidine Gluconate (Chlorhexidine 2% Cloth) 3 pack VENDING MACHINE REFILLER TOP ; Start at 06:45; Stop 02/15/17 at 06:44 Hydralazine HCl (Apresoline) 25 mg Q8HR PO Last administered on 02/12/17 05: 14; Start 02/11/17 at 14:00; Stop 02/12/17 at 13:44; Status DC Isosorbide Mononitrate (Imdur) 30 mg DAILY PO Last administered on 02/13/17 08:43; Start 02/11/17 at 09:00 Enalaprilat (Vasotec Inj) 1.25 mg Q6H PRN IV PUSH SBP>160, DBP>90 Last administered on 02/13/17 03:12; Start 02/11/17 at 08:45 Acetaminophen/ Hydrocodone Bitart (Burton 5-325 Mg) 1 tab Q4H PRN PO PAIN SCALE 3 TO 5; Start 02/11/17 at 16:45 Acetaminophen/ Hydrocodone Bitart (Burton 7.5-325 Mg) 1 tab Q4H PRN PO PAIN SCALE 6 TO 10 Last administered on 02/13/17 08:42; Start 02/11/17 at 16:45 Naloxone HCl (Narcan Inj) 0.4 mg UNSCH PRN IV PUSH SEE LABEL COMMENTS; Start 02/11/17 at 16:45 Magnesium Oxide (Mag-Ox) 400 mg ONCE ONCE PO Last administered on 02/11/17 17:22; Start 02/11/17 at 17:00; Stop 02/11/17 at 17:01; Status DC Temazepam (Restoril) 7.5 mg HS PRN PO INSOMNIA Last administered on 02/12/17 20:25; Start 02/11/17 at 18:00 Hydralazine HCl (Apresoline) 50 mg Q8HR PO Last administered on 02/13/17 06: 06; Start 02/12/17 at 14:00 Lisinopril (Prinivil) 5 mg ONCE ONCE PO Last administered on 02/12/17 15:41 ; Start 02/12/17 at 15:00; Stop 02/12/17 at 15:01; Status DC Lisinopril (Prinivil) 5 mg DAILY PO Last administered on 02/13/17 08:43; Start 02/13/17 at 09:00 A/P Problem List: (1) Symptomatic bradycardia ICD Code: R00.1 - Bradycardia, unspecified (2) Hypokalemia ICD Code: E87.6 - Hypokalemia (3) Leukocytosis ICD Code: D72.829 - Elevated white blood cell count, unspecified (4) Renal insufficiency ICD Code: N28.9 - Disorder of kidney and ureter, unspecified Assessment and Plan // Symptomatically Bradycardia: chronic, follows w/ Dr. Aldrich, previously refused Pacer. HR 40's upon arrival, Dr. Child consulted by ER physician, recommended Dopamine as needed. Will eval in am. Initial trop negative, check serial cardiac enzymes to r/o underlying ischemia. Echo 02/05/16 w/ EF 60-65%. Telemetry. = Bradycardia improved with holding Coreg. Continue to monitor. Plan per cardiology. Appreciate assistance--ADAN NO INTERVENTION //Hypokalemia: K+ 3.0 on admission.. = Resolved with replacement // SANDRA: Creatinine 1.17, previously 0.60 on 02/29/16. = Discontinue IV fluids. Continue home medications. Order strict intake and output monitoring. = Resolved. //Polypharmacy. Patient is on narcotics, benzos. Patient is amenable to home health for medication management. //Diabetes mellitus. Sugars controlled. Continue insulin sliding scale. //Hypertension. Blood pressure continues elevated today in the 190s systolic. Holding Coreg.Continue Imdur. Start on lisinopril. Increase hydralazine. Continue to monitor.- NOT AT GOAL- ADD BACK NORVASC 5MG PO DAILY HX OF CVA AND SD WITHIN THE PAST YEAR // Leukocytosis: WBC 11, on admission. Afebrile. Resolved. //Chronic back pain. Continue narcotics. Patient appears to have spasm of abdominal muscles secondary to back pain. Recommend following up with physical therapy as outpatient. Monitor closely. CONTINUE PERCOCET 10/325 PO Q6H ROBAXIN 1000MG PO Q8H SCHEDULED // DVT Prophylaxis: SCD/Teds. ADJUST BLOOD PRESSURE MEDS PT AND OT HOPEFULLY HOME TOMORROW Discharge Planning Home health care discharge Adjust blood pressure medications today And pain control Marco Lane DO Feb 13, 2017 11:25
[2017-02-13] MEDS: FLUoxetine HCL 20 MG CAP PO SCH (12:58)
[2017-02-13] MEDS: oxyCODONE/ACETAMINOPHEN 10 MG/325 MG TAB PO PRN ×3 (12:59→23:09)
[2017-02-13] MEDS: CHOLECALCIFEROL (VIT D3) 1000 UNIT TAB PO SCH (12:59)
[2017-02-13] MEDS: MULTIVITAMINS/MINERALS THERAPEUTIC TAB PO SCH (12:59)
[2017-02-13] MEDS: METHOCARBAMOL 500 MG TAB PO SCH ×2 (14:15→21:29)
--- NOTE | 2017-02-13 16:13 | PD.CARD.PN ---
Subjective Subjective Remarks No CP or SOB, still c/o back pain, no recurrent bradycardia Objective Medications Current Medications Medications (Trade) Dose Ordered Sig/Andrea Route Start Time Stop Time Status Last Admin (Brethine Inj) 1 mg UNSCH PRN SQ 02/10/17 18:15 (NS Flush) 2 ml UNSCH PRN IV FLUSH 02/10/17 19:45 (NS Flush) 2 ml BID IV FLUSH 02/10/17 21:00 02/13/17 08:44 (Zofran Inj) 4 mg Q6H PRN IVP 02/10/17 19:45 02/12/17 01:39 (Tylenol) 650 mg Q6H PRN PO 02/10/17 19:45 (Morphine Inj) 2 mg Q3H PRN IV PUSH 02/10/17 19:45 02/13/17 10:15 (Sofi-Colace) 1 tab BID PO 02/10/17 21:00 02/12/17 20:24 (Milk Of Magnesia Liq) 30 ml Q12H PRN PO 02/10/17 19:45 (Senokot) 17.2 mg Q12H PRN PO 02/10/17 19:45 (Dulcolax Supp) 10 mg DAILY PRN RECTAL 02/10/17 19:45 (Lactulose Liq) 30 ml DAILY PRN PO 02/10/17 19:45 (D50w (Vial) Inj) 50 ml UNSCH PRN IV PUSH 02/10/17 21:00 (Glucagon Inj) 1 mg UNSCH PRN OTHER 02/10/17 21:00 (NovoLOG SUPPLEMENTAL SCALE) 1 ACHS SLIDING SCALE SQ 02/10/17 21:00 02/12/17 12:00 (Ecotrin Ec) 81 mg DAILY PO 02/11/17 09:00 02/13/17 08:44 (Tricor) 145 mg HS PO 02/10/17 21:00 02/12/17 20:24 (Duragesic 75 Mcg Patch.72 Hr) 1 patch Q72H T-DERMAL 02/10/17 22:00 02/10/17 22:49 (Neurontin) 300 mg TID PO 02/11/17 09:00 02/13/17 12:59 (Ativan) 2 mg TID PO 02/11/17 09:00 02/13/17 12:59 (Protonix) 40 mg DAILY PO 02/11/17 09:00 02/13/17 08:43 (Pravachol) 40 mg HS PO 02/10/17 21:00 02/12/17 20:24 Miscellaneous Information 1 Q3D T-DERMAL 02/13/17 22:00 Cefazolin Sodium/ Dextrose 50 ml @ 100 mls/hr MANAGER OF DATA IV 02/11/17 06:45 02/14/17 06:44 Vancomycin HCl 1000 mg/Sodium Chloride 250 ml @ 250 mls/hr MANAGER OF DATA IV 02/11/17 06:45 02/15/17 06:44 (Betadine 5% Antisepsis Kit) 1 applic MANAGER OF DATA EACH NARE 02/11/17 06:45 02/15/17 06:44 (Bactroban Nasal 2% Oint) 1 applic MANAGER OF DATA NASAL 02/11/17 06:45 02/15/17 06:44 (Chlorhexidine 2% Cloth) 3 pack MANAGER OF DATA TOP 02/11/17 06:45 02/15/17 06:44 (Imdur) 30 mg DAILY PO 02/11/17 09:00 02/13/17 08:43 (Vasotec Inj) 1.25 mg Q6H PRN IV PUSH 02/11/17 08:45 02/13/17 03:12 (Narcan Inj) 0.4 mg UNSCH PRN IV PUSH 02/11/17 16:45 (Restoril) 7.5 mg HS PRN PO 02/11/17 18:00 02/12/17 20:25 (Apresoline) 50 mg Q8HR PO 02/12/17 14:00 02/13/17 14:15 (Prinivil) 5 mg DAILY PO 02/13/17 09:00 02/13/17 08:43 (Norvasc) 10 mg DAILY PO 02/13/17 13:00 02/13/17 12:59 (PROzac) 20 mg DAILY PO 02/13/17 13:00 02/13/17 12:58 (Percocet 10-325 Mg) 1 tab Q6H PRN PO 02/13/17 11:30 02/13/17 12:59 (Vitamin D3) 1,000 units DAILY PO 02/13/17 13:00 02/13/17 12:59 (Theragran M Tab) 1 tab DAILY PO 02/13/17 13:00 02/13/17 12:59 (Pepcid) 20 mg BID PO 02/13/17 21:00 (Robaxin) 1,000 mg Q8HR PO 02/13/17 14:00 02/13/17 14:15 Vital Signs / I&O Vital Signs Date Time Temp Pulse Resp B/P (MAP) Pulse Ox O2 Delivery O2 Flow Rate FiO2 02/13/17 12:01 76 02/13/17 11:15 97.7 86 18 168/71 (103) 93 02/13/17 11:00 78 02/13/17 10:00 82 02/13/17 09:00 78 02/13/17 08:45 97.6 87 18 155/68 (97) 97 02/13/17 08:00 84 02/13/17 07:00 69 02/13/17 06:10 72 02/13/17 05:00 61 02/13/17 04:03 71 02/13/17 04:03 17 02/13/17 03:59 156/65 (95) 02/13/17 03:00 68 02/13/17 03:00 98.1 60 18 177/72 (107) 94 02/13/17 02:03 79 02/13/17 01:10 62 02/13/17 00:19 69 02/12/17 23:00 59 02/12/17 23:00 98.9 71 18 150/65 (93) 96 02/12/17 22:00 66 02/12/17 21:00 65 02/12/17 19:00 97.8 65 18 173/72 (105) 97 02/12/17 19:00 63 02/12/17 18:00 84 02/12/17 17:00 82 I/O 02/12/17 02/12/17 02/12/17 02/13/17 02/13/17 02/13/17 07:00 15:00 23:00 07:00 15:00 23:00 Intake Total 480 ml 480 ml 480 ml Output Total 325 ml 610 ml 350 ml Balance 155 ml -130 ml 130 ml Intake Oral 480 ml 480 ml 480 ml Output Urine Total 325 ml 610 ml 350 ml # Bowel Movements 0 0 Physical Exam GENERAL: In mild distress due to back pain. SKIN: Warm and dry. HEAD: Normocephalic. EYES: No scleral icterus. No injection or drainage. NECK: Supple, trachea midline. No JVD or lymphadenopathy. CARDIOVASCULAR: Regular rate and rhythm without murmurs, gallops, or rubs. RESPIRATORY: Breath sounds equal bilaterally. No accessory muscle use. GASTROINTESTINAL: Abdomen soft, non-tender, nondistended. Obese. MUSCULOSKELETAL: No cyanosis, mild edema. Assessment and Plan Problem List: (1) Symptomatic bradycardia ICD Codes: R00.1 - Bradycardia, unspecified (2) Acute exacerbation of chronic low back pain ICD Codes: M54.5 - Low back pain; G89.29 - Other chronic pain Status: Acute (3) Fall ICD Codes: W19.XXXA - Unspecified fall, initial encounter (4) HTN (hypertension) ICD Codes: I10 - HTN (hypertension) Status: Chronic (5) Chronic kidney disease (CKD), stage III (moderate) ICD Codes: N18.3 - Chronic kidney disease, stage 3 (moderate) Status: Acute (6) Type 2 diabetes mellitus ICD Codes: E11.9 - Type 2 diabetes mellitus without complications Status: Chronic (7) Renal insufficiency ICD Codes: N28.9 - Disorder of kidney and ureter, unspecified Assessment and Plan No new cardiac issues. Bradycardia and hypotension exacerbated by carvedilol; no recurrence, now improved off beta matthew. Doubt she can benefit from pacemaker placement at this time. Continue monitoring on telemetry. Increase activity. Pain control. Alexandria Aldrich MD Feb 13, 2017 16:13
[2017-02-13] MEDS: fentaNYL 75 MCG/HR PATCH T-DERMAL SCH (21:28)
[2017-02-13] MEDS: FENOFIBRATE 145 MG TAB PO SCH (21:29)
[2017-02-13] MEDS: FAMOTIDINE 20 MG TAB PO SCH (21:29)
[2017-02-13] MEDS: TEMAZEPAM 7.5 MG CAP PO PRN (21:29)
[2017-02-13] MEDS: PRAVASTATIN SOD 40 MG TAB PO SCH (21:29)
[2017-02-13] MEDS ORDERED: REMOVE OLD DURAGESIC (FENTANYL) PATCH T-DERMAL SCH (22:00)
[2017-02-14] VITALS (16 sets, daily range): BP systolic 140–143; BP diastolic 57–80; PULSE 70–97; RESP 16; TEMP 97.4–97.7; O2SAT 88–94
[2017-02-14 05:18] LABS: AUTOMATED NEUTROPHIL # 5.4 TH/MM3 (1.8-7.7); BASOPHIL # 0.1 TH/MM3 (0-0.2); BASOPHIL % 0.9 % (0.0-2.0); EOSINOPHIL # 0.4 TH/MM3 (0-0.4); EOSINOPHIL % 3.7 % (0.0-4.0); HEMATOCRIT 40.5 % (35.0-46.0); HEMO FLAGS DIFF FINAL; LYMPH % 32.2 % (9.0-44.0); LYMPHOCYTE # 3.2 TH/MM3 (1.0-4.8); MEAN CELL VOLUME 84.4 FL (80.0-100.0); MEAN CORPUSCULAR HGB CONC 33.2 % (32.0-36.0); MONO % 9.6 % (0.0-8.0); NEUT % 53.6 % (16.0-70.0); PLATELET COUNT 466 TH/MM3 (150-450); RED CELL DISTRIBUTION WIDTH 14.8 % (11.6-17.2)
[2017-02-14 05:43] LABS: ANION GAP 8 MEQ/L (5-15); AST (GOT) 14 U/L (15-37); BICARBONATE 27.4 MEQ/L (21.0-32.0); BLOOD UREA NITROGEN 8 MG/DL (7-18); CHLORIDE 105 MEQ/L (98-107); GLOMERULAR FILTRATION RATE 75 ML/MIN (>89); MAGNESIUM 1.7 MG/DL (1.5-2.5); POTASSIUM 3.4 MEQ/L (3.5-5.1); SODIUM (NA) 140 MEQ/L (136-145)
[2017-02-14 05:44] LABS: ALT (GPT) 16 U/L (10-53)
[2017-02-14 05:53] LABS: ALKALINE PHOSPHATASE 62 U/L (45-117); FREE T4 1.26 NG/DL (0.76-1.46); TOTAL BILIRUBIN ADULT 0.3 MG/DL (0.2-1.0)
[2017-02-14] MEDS: METHOCARBAMOL 500 MG TAB PO SCH ×2 (05:57→13:49)
[2017-02-14] MEDS: oxyCODONE/ACETAMINOPHEN 10 MG/325 MG TAB PO PRN ×2 (05:57→11:32)
[2017-02-14] MEDS: hydrALAZINE HCL 25 MG TAB PO SCH ×2 (05:57→13:49)
[2017-02-14] MEDS: SODIUM CHLORIDE 0.9% FLUSH 10 ML FLUSH IV FLUSH SCH (09:37)
[2017-02-14] MEDS: INSULIN ASPART SUPPLEMENTAL SCALE SQ SCH ×2 (09:37→11:32)
[2017-02-14] MEDS: GABAPENTIN 300 MG CAP PO SCH ×2 (09:38→13:49)
[2017-02-14] MEDS: PANTOPRAZOLE SOD 40 MG DELAYED RELEASE TAB PO SCH (09:38)
[2017-02-14] MEDS: CHOLECALCIFEROL (VIT D3) 1000 UNIT TAB PO SCH (09:38)
[2017-02-14] MEDS: MULTIVITAMINS/MINERALS THERAPEUTIC TAB PO SCH (09:38)
[2017-02-14] MEDS: ISOSORBIDE MONONITRATE 30 MG TAB PO SCH (09:38)
[2017-02-14] MEDS: DOCUSATE SODIUM 50 MG/SENNA 8.6 MG TAB PO SCH (09:40)
[2017-02-14] MEDS: FAMOTIDINE 20 MG TAB PO SCH (09:40)
[2017-02-14] MEDS: ASPIRIN EC 81 MG TABEC PO SCH (09:40)
[2017-02-14] MEDS: FLUoxetine HCL 20 MG CAP PO SCH (09:40)
[2017-02-14] MEDS: LORazepam 2 MG TAB PO SCH ×2 (09:40→13:49)
[2017-02-14] MEDS: LISINOPRIL 5 MG TAB PO SCH (09:40)
--- NOTE | 2017-02-14 12:40 | HHI.PR ---
Subjective Remarks This is a 71-year-old female with a PMH of HTN, Anxiety, CAD, Fibromyalgia, h/o CVA and Rheumatoid Arthritis who was brought to the ER by EMS secondary to c/o back pain after fall. Upon EMS arrival, pt found to be bradycardic, HR 40's, s/ p Atropine x2 w/ minimal improvement, external pacer placed. BP 80's systolic. Per family, has been following w/ Dr. Aldrich for bradycardia, has previously refused Pacemaker. On arrival, BP 171/63, HR 79, O2 sat 96% on 2L NC, Afebrile. While in ER, HR 40s. Dr. Hamilton consulted by ER physician, recommended d/c external pacer, Dopamine gtt as needed. WBC 11.2. K+ 3.0. Creatinine 1.17, previously 0.60 on 02/29/16. Trop negative. INR 1.1. CXR with no acute findings. Thoracic/Lumbar X-ray with no acute fracture. Follow-up uncontrolled blood pressure. Bradycardia resolved off the beta matthew Still has chronic pain. Not controlled on what we have here we will adjust all medications A.m. labs PT and OT Will need home health care at discharge RE-ADD NORVASC SWITCH TO PERCOCET 10/325 Q6 ROBAXIN 1000MG PO Q8 02-14 IMPROVED PAIN WANTS TO GO HOME TODAY FOLLOW UP WITH DR NINA BAIG TO HOME TODAY [facility] PT AND OT AND RN Objective Vitals Vital Signs Date Time Temp Pulse Resp B/P (MAP) Pulse Ox O2 Delivery O2 Flow Rate FiO2 02/14/17 12:00 89 02/14/17 11:27 97.4 92 16 143/80 (101) 93 02/14/17 11:00 92 02/14/17 10:00 88 02/14/17 09:00 88 02/14/17 08:00 86 02/14/17 07:45 97.7 83 16 140/57 (84) 93 02/14/17 07:00 84 02/14/17 06:00 80 02/14/17 05:00 86 02/14/17 04:00 84 02/14/17 03:00 90 02/14/17 03:00 87 16 141/63 (89) 94 02/14/17 02:00 88 02/14/17 01:30 97 16 143/64 (90) 88 02/14/17 01:00 70 02/14/17 00:12 16 02/14/17 00:00 70 02/13/17 23:00 84 02/13/17 23:00 84 20 179/80 (113) 95 02/13/17 22:30 16 02/13/17 22:00 76 02/13/17 21:00 88 02/13/17 20:00 88 02/13/17 19:30 98.1 77 16 149/71 (97) 95 02/13/17 19:00 88 02/13/17 18:01 86 02/13/17 17:01 78 02/13/17 16:00 70 02/13/17 15:45 97.7 74 18 133/63 (86) 93 02/13/17 15:00 75 02/13/17 14:00 92 02/13/17 13:00 98 I/O 02/13/17 02/13/17 02/13/17 02/14/17 02/14/17 02/14/17 07:00 15:00 23:00 07:00 15:00 23:00 Intake Total 480 ml 835 ml 720 ml Output Total 350 ml 400 ml 950 ml Balance 130 ml 435 ml -230 ml Intake Oral 480 ml 835 ml 720 ml Output Urine Total 350 ml 400 ml 950 ml # Voids 1 # Bowel Movements 0 0 Result Diagram: 02/14/17 0500 02/14/17 0500 Other Results Laboratory Tests Test 02/12/17 04:39 02/14/17 05:00 White Blood Count 9.5 TH/MM3 10.0 TH/MM3 Red Blood Count 4.74 MIL/MM3 4.80 MIL/MM3 Hemoglobin 13.1 GM/DL 13.5 GM/DL Hematocrit 39.7 % 40.5 % Mean Corpuscular Volume 83.8 FL 84.4 FL Mean Corpuscular Hemoglobin 27.7 PG 28.0 PG Mean Corpuscular Hemoglobin Concent 33.1 % 33.2 % Red Cell Distribution Width 14.8 % 14.8 % Platelet Count 409 TH/MM3 466 TH/MM3 Mean Platelet Volume 6.9 FL 7.0 FL Neutrophils (%) (Auto) 53.3 % 53.6 % Lymphocytes (%) (Auto) 31.7 % 32.2 % Monocytes (%) (Auto) 11.1 % 9.6 % Eosinophils (%) (Auto) 3.3 % 3.7 % Basophils (%) (Auto) 0.6 % 0.9 % Neutrophils # (Auto) 5.1 TH/MM3 5.4 TH/MM3 Lymphocytes # (Auto) 3.0 TH/MM3 3.2 TH/MM3 Monocytes # (Auto) 1.1 TH/MM3 1.0 TH/MM3 Eosinophils # (Auto) 0.3 TH/MM3 0.4 TH/MM3 Basophils # (Auto) 0.1 TH/MM3 0.1 TH/MM3 CBC Comment DIFF FINAL DIFF FINAL Differential Comment Blood Urea Nitrogen 8 MG/DL 8 MG/DL Creatinine 0.81 MG/DL 0.76 MG/DL Random Glucose 122 MG/DL 164 MG/DL Albumin 3.1 GM/DL 3.1 GM/DL Calcium Level 9.0 MG/DL 8.8 MG/DL Phosphorus Level 3.0 MG/DL 2.8 MG/DL Magnesium Level 1.6 MG/DL 1.7 MG/DL Sodium Level 142 MEQ/L 140 MEQ/L Potassium Level 3.5 MEQ/L 3.4 MEQ/L Chloride Level 105 MEQ/L 105 MEQ/L Carbon Dioxide Level 31.6 MEQ/L 27.4 MEQ/L Anion Gap 5 MEQ/L 8 MEQ/L Estimat Glomerular Filtration Rate 69 ML/MIN 75 ML/MIN Total Protein 7.1 GM/DL Alkaline Phosphatase 62 U/L Aspartate Amino Transf (AST/SGOT) 14 U/L Alanine Aminotransferase (ALT/SGPT) 16 U/L Total Bilirubin 0.3 MG/DL Free Thyroxine 1.26 NG/DL Thyroid Stimulating Hormone 3rd Gen 1.610 uIU/ML Imaging Last Impressions Thoracic Spine X-Ray 02/10/171808 Signed Impressions: Service Date/Time: Friday, February 10, 2017 20:19 - CONCLUSION: There are degenerative changes throughout the thoracic spine. No acute finding is seen. Kevin Recinos MD Lumbar Spine X-Ray 02/10/171807 Signed Impressions: Service Date/Time: Friday, February 10, 2017 20:20 - CONCLUSION: Stable examination of the lumbar spine with height loss at the superior endplate of T12 and L2. No acute finding is identified. Kevin Recinos MD Chest X-Ray 02/10/171801 Signed Impressions: Service Date/Time: Friday, February 10, 2017 18:04 - CONCLUSION: No acute cardiopulmonary abnormality is identified. Kevin Recinos MD Objective Remarks GENERAL: Awake alert oriented oriented 3 --talkative and cooperative SKIN: Warm and dry. HEAD: Atraumatic. Normocephalic. EYES: Pupils equal and round. No scleral icterus. No injection or drainage. Extraocular muscles intact ENT: No nasal bleeding or discharge. Mucous membranes pink and moist. Tongue is midline NECK: Trachea midline. No JVD. Supple CARDIOVASCULAR: Regular rate and rhythm. S1 and S2 no S3 or S4 no heave or thrill or rub or gallop RESPIRATORY: No accessory muscle use. Clear to auscultation. Breath sounds equal bilaterally. GASTROINTESTINAL: Abdomen soft, non-tender, nondistended. Hepatic and splenic margins not palpable. Obese MUSCULOSKELETAL: Extremities without clubbing, cyanosis, or edema. No obvious deformities. NEUROLOGICAL: Awake and alert. No obvious cranial nerve deficits. Motor grossly within normal limits. 4 out of 5 muscle strength in the arms and legs. Normal speech. PSYCHIATRIC: Appropriate mood and affect; insight and judgment normal. Procedures NONE Medications and IVs Current Medications Lorazepam (Ativan Inj) 1 mg ONCE ONCE IV PUSH Last administered on 02/10/17 18:13; Start 02/10/17 at 18:15; Stop 02/10/17 at 18:16; Status DC Dopamine HCl/ Dextrose 500 ml @ 0 mls/hr TITRATE PRN IV Blood Pressure Management; Start 02/10/17 at 18:15; Stop 02/10/17 at 19:35; Status DC Terbutaline Sulfate (Brethine Inj) 1 mg UNSCH PRN SQ For Extravasation; Start 02/10/17 at 18:15 Sodium Chloride 1,000 ml @ 100 mls/hr Q10H IV Last administered on 02/10/17 18:19; Start 02/10/17 at 18:15; Stop 02/10/17 at 19:53; Status DC Potassium Chloride (KCl) 40 meq ONCE ONCE PO Last administered on 02/10/17 21:09; Start 02/10/17 at 20:00; Stop 02/10/17 at 20:01; Status DC Sodium Chloride 1,000 ml @ 0 mls/hr Q10H IV Last administered on 02/11/17 05 :06; Start 02/10/17 at 20:00; Stop 02/11/17 at 16:45; Status DC Sodium Chloride (NS Flush) 2 ml UNSCH PRN IV FLUSH FLUSH AFTER USING IV ACCESS ; Start 02/10/17 at 19:45 Sodium Chloride (NS Flush) 2 ml BID IV FLUSH Last administered on 02/14/17 09 :37; Start 02/10/17 at 21:00 Ondansetron HCl (Zofran Inj) 4 mg Q6H PRN IVP NAUSEA OR VOMITING Last administered on 02/12/17 01:39; Start 02/10/17 at 19:45 Acetaminophen (Tylenol) 650 mg Q6H PRN PO FEVER; Start 02/10/17 at 19:45 Acetaminophen/ Hydrocodone Bitart ([place] 5-325 Mg) 1 tab Q4H PRN PO PAIN SCALE 3 TO 5 Last administered on 02/11/17 14:23; Start 02/10/17 at 19:45; Stop 02/11/17 at 16:54; Status DC Morphine Sulfate (Morphine Inj) 2 mg Q3H PRN IV PUSH Pain 6-10 Last administered on 02/13/17 10:15; Start 02/10/17 at 19:45 Senna/Docusate Sodium (Sofi-Colace) 1 tab BID PO Last administered on 09:40; Start 02/10/17 at 21:00 Magnesium Hydroxide (Milk Of Magnesia Liq) 30 ml Q12H PRN PO Mild constipation ; Start 02/10/17 at 19:45 Sennosides (Senokot) 17.2 mg Q12H PRN PO Moderate constipation; Start at 19:45 Bisacodyl (Dulcolax Supp) 10 mg DAILY PRN RECTAL SEVERE CONSITIPATION; Start 02/10/17 at 19:45 Lactulose (Lactulose Liq) 30 ml DAILY PRN PO SEVERE CONSITIPATION; Start 02/10 at 19:45 Dextrose (D50w (Vial) Inj) 50 ml UNSCH PRN IV PUSH HYPOGLYCEMIA-SEE COMMENTS; Start 02/10/17 at 21:00 Glucagon (Glucagon Inj) 1 mg UNSCH PRN OTHER HYPOGLYCEMIA-SEE COMMENTS; Start 02/10/17 at 21:00 Insulin Aspart (NovoLOG SUPPLEMENTAL SCALE) 1 ACHS SLIDING SCALE SQ Last administered on 02/14/17 09:37; Start 02/10/17 at 21:00 Aspirin (Ecotrin Ec) 81 mg DAILY PO Last administered on 02/14/17 09:40; Start 02/11/17 at 09:00 Fenofibrate (Tricor) 145 mg HS PO Last administered on 02/13/17 21:29; Start 02/10/17 at 21:00 Fentanyl (Duragesic 75 Mcg Patch.72 Hr) 1 patch Q72H T-DERMAL Last administered on 02/13/17 21:28; Start 02/10/17 at 22:00 Furosemide (Lasix) 40 mg BID@09,18 PO ; Start 02/11/17 at 09:00; Stop at 09:00; Status DC Gabapentin (Neurontin) 300 mg TID PO Last administered on 02/14/17 09:38; Start 02/11/17 at 09:00 Lorazepam (Ativan) 2 mg TID PO Last administered on 02/14/17 09:40; Start at 09:00 Pantoprazole Sodium (Protonix) 40 mg DAILY PO Last administered on 02/14/17 09:38; Start 02/11/17 at 09:00 Pravastatin Sodium (Pravachol) 40 mg HS PO Last administered on 02/13/17 21: 29; Start 02/10/17 at 21:00 Miscellaneous Information 1 Q3D T-DERMAL Last administered on 02/13/17 21:28 ; Start 02/13/17 at 22:00 Potassium Chloride (KCl) 40 meq ONCE ONCE PO Last administered on 02/11/17 08:16; Start 02/11/17 at 06:45; Stop 02/11/17 at 06:46; Status DC Cefazolin Sodium/ Dextrose 50 ml @ 100 mls/hr [facility] IV ; Start 02/11/17 at 06:45; Stop 02/14/17 at 06:44; Status DC Vancomycin HCl 1000 mg/Sodium Chloride 250 ml @ 250 mls/hr [facility] IV ; Start 02/11/17 at 06:45; Stop 02/15/17 at 06:44 Povidone Iodine (Betadine 5% Antisepsis Kit) 1 applic [facility] EACH NARE ; Start 02/11/17 at 06:45; Stop 02/15/17 at 06:44 Mupirocin (Bactroban Nasal 2% Oint) 1 applic [facility] NASAL ; Start 02/11/17 at 06:45; Stop 02/15/17 at 06:44 Chlorhexidine Gluconate (Chlorhexidine 2% Cloth) 3 pack [facility] TOP ; Start at 06:45; Stop 02/15/17 at 06:44 Hydralazine HCl (Apresoline) 25 mg Q8HR PO Last administered on 02/12/17 05: 14; Start 02/11/17 at 14:00; Stop 02/12/17 at 13:44; Status DC Isosorbide Mononitrate (Imdur) 30 mg DAILY PO Last administered on 02/14/17 09:38; Start 02/11/17 at 09:00 Enalaprilat (Vasotec Inj) 1.25 mg Q6H PRN IV PUSH SBP>160, DBP>90 Last administered on 02/13/17 03:12; Start 02/11/17 at 08:45 Acetaminophen/ Hydrocodone Bitart ([place] 5-325 Mg) 1 tab Q4H PRN PO PAIN SCALE 3 TO 5; Start 02/11/17 at 16:45; Stop 02/13/17 at 11:21; Status DC Acetaminophen/ Hydrocodone Bitart ([place] 7.5-325 Mg) 1 tab Q4H PRN PO PAIN SCALE 6 TO 10 Last administered on 02/13/17 08:42; Start 02/11/17 at 16:45; Stop 02/13/17 at 11:21; Status DC Naloxone HCl (Narcan Inj) 0.4 mg UNSCH PRN IV PUSH SEE LABEL COMMENTS; Start 02/11/17 at 16:45 Magnesium Oxide (Mag-Ox) 400 mg ONCE ONCE PO Last administered on 02/11/17 17:22; Start 02/11/17 at 17:00; Stop 02/11/17 at 17:01; Status DC Temazepam (Restoril) 7.5 mg HS PRN PO INSOMNIA Last administered on 02/13/17 21:29; Start 02/11/17 at 18:00 Hydralazine HCl (Apresoline) 50 mg Q8HR PO Last administered on 02/14/17 05: 57; Start 02/12/17 at 14:00 Lisinopril (Prinivil) 5 mg ONCE ONCE PO Last administered on 02/12/17 15:41 ; Start 02/12/17 at 15:00; Stop 02/12/17 at 15:01; Status DC Lisinopril (Prinivil) 5 mg DAILY PO Last administered on 02/14/17 09:40; Start 02/13/17 at 09:00 Amlodipine Besylate (Norvasc) 10 mg DAILY PO Last administered on 02/14/17 09 :39; Start 02/13/17 at 13:00 Fluoxetine HCl (PROzac) 20 mg DAILY PO Last administered on 02/14/17 09:40; Start 02/13/17 at 13:00 Oxycodone/ Acetaminophen (Percocet 10-325 Mg) 1 tab Q6H PRN PO PAIN 1 TO 10 Last administered on 02/14/17 11:32; Start 02/13/17 at 11:30 Cholecalciferol (Vitamin D3) 1,000 units DAILY PO Last administered on 09:38; Start 02/13/17 at 13:00 Multivitamins/ Minerals Therapeutic (Theragran M Tab) 1 tab DAILY PO Last administered on 02/14/17 09:38; Start 02/13/17 at 13:00 Famotidine (Pepcid) 20 mg BID PO Last administered on 02/14/17 09:40; Start 02/13/17 at 21:00 Methocarbamol (Robaxin) 1,000 mg Q8HR PO Last administered on 02/14/17 05:57 ; Start 02/13/17 at 14:00 Urinary Catheter: No Vascular Central Line Catheter: No A/P Problem List: (1) Symptomatic bradycardia ICD Code: R00.1 - Bradycardia, unspecified (2) Hypokalemia ICD Code: E87.6 - Hypokalemia (3) Leukocytosis ICD Code: D72.829 - Elevated white blood cell count, unspecified (4) Renal insufficiency ICD Code: N28.9 - Disorder of kidney and ureter, unspecified Assessment and Plan // Symptomatically Bradycardia: chronic, follows w/ Dr. Aldrich, previously refused Pacer. HR 40's upon arrival, Dr. Child consulted by ER physician, recommended Dopamine as needed. Will eval in am. Initial trop negative, check serial cardiac enzymes to r/o underlying ischemia. Echo 02/05/16 w/ EF 60-65%. Telemetry. = Bradycardia improved with holding Coreg. Continue to monitor. Plan per cardiology. Appreciate assistance--ADAN NO INTERVENTION //Hypokalemia: K+ 3.0 on admission.. = Resolved with replacement // SANDRA: Creatinine 1.17, previously 0.60 on 02/29/16. = Discontinue IV fluids. Continue home medications. Order strict intake and output monitoring. = Resolved. //Polypharmacy. Patient is on narcotics, benzos. Patient is amenable to home health for medication management. //Diabetes mellitus. Sugars controlled. Continue insulin sliding scale. //Hypertension. Blood pressure continues elevated today in the 190s systolic. Holding Coreg.Continue Imdur. Start on lisinopril. Increase hydralazine. Continue to monitor.- NOT AT GOAL- ADD BACK NORVASC 5MG PO DAILY HX OF CVA AND OH WITHIN THE PAST YEAR // Leukocytosis: WBC 11, on admission. Afebrile. Resolved. //Chronic back pain. Continue narcotics. Patient appears to have spasm of abdominal muscles secondary to back pain. Recommend following up with physical therapy as outpatient. Monitor closely. CONTINUE PERCOCET 10/325 PO Q6H ROBAXIN 1000MG PO Q8H SCHEDULED // DVT Prophylaxis: SCD/Teds. ADJUST BLOOD PRESSURE MEDS PT AND OT HOME TODAY Discharge Planning Home health care discharge Adjust blood pressure medications today And pain control Marco Lane DO Feb 14, 2017 12:40
[2017-02-14] MEDS ORDERED: POTASSIUM CHLORIDE 10 MEQ CONTROLLED RELEASE TAB PO ONE (12:45)
[2017-02-14] MEDS ORDERED: FLUO1TAB3 PO (12:55)
[2017-02-14] MEDS ORDERED: NEUR300C PO (12:55)
[2017-02-14] MEDS ORDERED: HYDR-3799 PO (12:55)
[2017-02-14] MEDS ORDERED: METH500T3 PO (12:55)
[2017-02-14] MEDS ORDERED: LEVEMIR SQ (12:55)
[2017-02-14] MEDS ORDERED: CLON.1 PO (12:55)
[2017-02-14] MEDS ORDERED: PERC10TA27 PO (12:55)
[2017-02-14] MEDS ORDERED: ISOS30TA3 PO (12:55)
[2017-02-14] MEDS ORDERED: PRAV40TA PO (12:55)
[2017-02-14] MEDS ORDERED: LISI-519 PO (12:55)
[2017-02-14] MEDS ORDERED: FURO1TAB60 PO (12:55)
[2017-02-14] MEDS ORDERED: ASPI81TA16 PO (12:55)
[2017-02-14] MEDS ORDERED: LORA2TAB7 PO (12:55)
[2017-02-14] MEDS ORDERED: PANT40TA3 PO (12:55)
[2017-02-14] MEDS ORDERED: ZANT150T2 PO (12:55)
[2017-02-14] MEDS ORDERED: AMLO10 PO (12:55)
[2017-02-14] MEDS ORDERED: FENO145T2 PO (12:55)
[2017-02-14] MEDS ORDERED: NITR1SUB3 SL (12:55)
[2017-02-14] MEDS ORDERED: D31000CA3 PO (12:55)
[2017-02-14] MEDS ORDERED: FENT75DI T-DERMAL (12:55)
[2017-02-14] MEDS ORDERED: MULT1CHW PO (12:55)
--- NOTE | 2017-02-14 12:56 | HHI.DS ---
Discharge Summary Admission Date Feb 10, 2017 at 19:31 Discharge Date: Feb 14, 2017 Admitting Diagnosis sinus bradycardia cardiac, hypotension (1) Symptomatic bradycardia ICD Code: R00.1 - Bradycardia, unspecified Diagnosis: Principal (2) Hypokalemia ICD Code: E87.6 - Hypokalemia (3) Leukocytosis ICD Code: D72.829 - Elevated white blood cell count, unspecified Diagnosis: Secondary (4) Renal insufficiency ICD Code: N28.9 - Disorder of kidney and ureter, unspecified Diagnosis: Secondary Procedures NONE Brief History - From Admission This is a 71-year-old female with a PMH of HTN, Anxiety, CAD, Fibromyalgia, h/o CVA and Rheumatoid Arthritis who was brought to the ER by EMS secondary to c/o back pain after fall. Upon EMS arrival, pt found to be bradycardic, HR 40's, s/ p Atropine x2 w/ minimal improvement, external pacer placed. BP 80's systolic. Per family, has been following w/ Dr. Aldrich for bradycardia, has previously refused Pacemaker. On arrival, BP 171/63, HR 79, O2 sat 96% on 2L NC, Afebrile. While in ER, HR 40s. Dr. Hamilton consulted by ER physician, recommended d/c external pacer, Dopamine gtt as needed. WBC 11.2. K+ 3.0. Creatinine 1.17, previously 0.60 on 02/29/16. Trop negative. INR 1.1. CXR with no acute findings. Thoracic/Lumbar X-ray with no acute fracture. CBC/BMP: 02/14/17 0500 02/14/17 0500 Significant Findings Laboratory Tests Test 02/12/17 04:39 02/14/17 05:00 Mean Platelet Volume 6.9 FL (7.0-11.0) Monocytes (%) (Auto) 11.1 % (0.0-8.0) 9.6 % (0.0-8.0) Monocytes # (Auto) 1.1 TH/MM3 (0-0.9) 1.0 TH/MM3 (0-0.9) Random Glucose 122 MG/DL (74-106) 164 MG/DL (74-106) Albumin 3.1 GM/DL (3.4-5.0) 3.1 GM/DL (3.4-5.0) Estimat Glomerular Filtration Rate 69 ML/MIN (>89) 75 ML/MIN (>89) Platelet Count 466 TH/MM3 (150-450) Aspartate Amino Transf (AST/SGOT) 14 U/L (15-37) Potassium Level 3.4 MEQ/L (3.5-5.1) Imaging Last Impressions Thoracic Spine X-Ray 02/10/171808 Signed Impressions: Service Date/Time: Friday, February 10, 2017 20:19 - CONCLUSION: There are degenerative changes throughout the thoracic spine. No acute finding is seen. Kevin Recinos MD Lumbar Spine X-Ray 02/10/171807 Signed Impressions: Service Date/Time: Friday, February 10, 2017 20:20 - CONCLUSION: Stable examination of the lumbar spine with height loss at the superior endplate of T12 and L2. No acute finding is identified. Kevin Recinos MD Chest X-Ray 02/10/171801 Signed Impressions: Service Date/Time: Friday, February 10, 2017 18:04 - CONCLUSION: No acute cardiopulmonary abnormality is identified. Kevin Recinos MD PE at Discharge GENERAL: Awake alert oriented oriented 3 --talkative and cooperative SKIN: Warm and dry. HEAD: Atraumatic. Normocephalic. EYES: Pupils equal and round. No scleral icterus. No injection or drainage. Extraocular muscles intact ENT: No nasal bleeding or discharge. Mucous membranes pink and moist. Tongue is midline NECK: Trachea midline. No JVD. Supple CARDIOVASCULAR: Regular rate and rhythm. S1 and S2 no S3 or S4 no heave or thrill or rub or gallop RESPIRATORY: No accessory muscle use. Clear to auscultation. Breath sounds equal bilaterally. GASTROINTESTINAL: Abdomen soft, non-tender, nondistended. Hepatic and splenic margins not palpable. Obese MUSCULOSKELETAL: Extremities without clubbing, cyanosis, or edema. No obvious deformities. NEUROLOGICAL: Awake and alert. No obvious cranial nerve deficits. Motor grossly within normal limits. 4 out of 5 muscle strength in the arms and legs. Normal speech. PSYCHIATRIC: Appropriate mood and affect; insight and judgment normal. Hospital Course This is a 71-year-old female with a PMH of HTN, Anxiety, CAD, Fibromyalgia, h/o CVA and Rheumatoid Arthritis who was brought to the ER by EMS secondary to c/o back pain after fall. Upon EMS arrival, pt found to be bradycardic, HR 40's, s/ p Atropine x2 w/ minimal improvement, external pacer placed. BP 80's systolic. Per family, has been following w/ Dr. Aldrich for bradycardia, has previously refused Pacemaker. On arrival, BP 171/63, HR 79, O2 sat 96% on 2L NC, Afebrile. While in ER, HR 40s. Dr. Hamilton consulted by ER physician, recommended d/c external pacer, Dopamine gtt as needed. WBC 11.2. K+ 3.0. Creatinine 1.17, previously 0.60 on 02/29/16. Trop negative. INR 1.1. CXR with no acute findings. Thoracic/Lumbar X-ray with no acute fracture. Follow-up uncontrolled blood pressure. Bradycardia resolved off the beta matthew Still has chronic pain. Not controlled on what we have here we will adjust all medications A.m. labs PT and OT Will need home health care at discharge RE-ADD NORVASC SWITCH TO PERCOCET 10/325 Q6 ROBAXIN 1000MG PO Q8 11-15 IMPROVED PAIN WANTS TO GO HOME TODAY FOLLOW UP WITH DR WOOD DC TO HOME TODAY [facility] PT AND OT AND RN Pt Condition on Discharge: Good Discharge Disposition: Disch w/ Home Health Serv Discharge Time: > 30 minutes Discharge Instructions DIET: Follow Instructions for: Heart Healthy Diet, Diabetic Diet Speech Therapy-Diet Recommends: Regular Activities you can perform: Regular-No Restrictions Follow up Referrals: Cardiology with Alexandria Aldrich MD PCP Follow-up - 1 Week with Reynaldo Wood D.o. New Medications: Walker with Front Wheels (Walker with Front Wheels) 1 Mis Mis EA .ROUTE DIRECTED, #1 0 Refills Hydralazine HCl (Hydralazine HCl) 25 Mg Tablet 50 MG PO Q8HR for Blood Pressure Management, #93 TAB Lisinopril (Lisinopril) 5 Mg Tab 5 MG PO DAILY for Blood Pressure Management, #31 TAB Methocarbamol (Methocarbamol) 500 Mg Tab 1000 MG PO Q8HR for Pain, #90 TAB Continued Medications: Amlodipine (Norvasc) 10 Mg Tab 10 MG PO DAILY for Blood Pressure Management, #30 TAB 0 Refills (This prescription has been renewed) Aspirin DR (Aspirin Adult Low Strength) 81 Mg Tabdr 81 MG PO DAILY for Blood Clot Prevention, #31 TAB (This prescription has been renewed) Cholecalciferol (Vitamin D-3) 1,000 Unit Cap 1000 UNITS PO DAILY for Nutritional Supplement, #30 CAP (This prescription has been renewed) Clonidine (Catapres) 0.1 Mg Tab 0.1 MG PO Q8H for Blood Pressure Management, #93 TAB (This prescription has been renewed) Fenofibrate (Fenofibrate) 145 Mg Tab 145 MG PO HS for Cholesterol Management, #31 TAB (This prescription has been renewed) Fentanyl Patch 72 HR (Fentanyl Patch 72 HR) 75 Mcg/Hr Patch 75 MCG T-DERMAL Q72H for Pain Management, #10 PATCH 0 Refills (This prescription has been renewed) Remove old patch when new one placed. Fluoxetine (Fluoxetine) 20 Mg Tab 20 MG PO DAILY for Depression Control, #30 TAB 0 Refills (This prescription has been renewed) Furosemide (Lasix) 40 Mg Tab 40 MG PO BID@09,18 for fluid, #62 TAB (This prescription has been renewed) Gabapentin (Neurontin) 300 Mg Cap 300 MG PO TID for Pain Management, #90 CAP 0 Refills (This prescription has been renewed) Insulin Detemir Inj (Levemir Inj) 1,000 unit/ 10 ML Vial 20 UNITS SQ HS for Blood Sugar Management, #60 VIAL 0 Refills (This prescription has been renewed) Do not mix with any other Insulin. Isosorbide Mononitrate ER (Isosorbide Mononitrate ER) 30 Mg Marilyn 30 MG PO DAILY for Prevent Chest Pain, #30 TAB 0 Refills (This prescription has been renewed) Lorazepam (Lorazepam) 2 Mg Tab 2 MG PO TID for Anxiety, #90 TAB 0 Refills (This prescription has been renewed) Multivit-Minerals/Folic Acid (Centrum Multigummies) 80 Mcg Tab.chew 1 CHEW PO DAILY for Nutritional Supplement, #30 TAB (This prescription has been renewed) Nitroglycerin SL (Nitroglycerin SL) 0.4 Mg Subl 0.4 MG SL DIRECTED PRN for CHEST PAIN, #100 TAB.SL 0 Refills (This prescription has been renewed) ONE TABLET UNDER THE TONGUE NEEDED FOR CHEST PAIN, MAY REPEAT EVERY FIVE MINUTES FOR A TOTAL OF 3 DOSES OR CALL 911 IF NO RELIEF Oxycodone-Acetaminophen (Percocet) 10-325 mg Tab 1 TAB PO Q6H PRN for PAIN, #120 TAB 0 Refills (This prescription has been renewed) Pantoprazole (Pantoprazole) 40 Mg Tab 40 MG PO DAILY for gastritis, #30 TAB (This prescription has been renewed) Pravastatin (Pravachol) 40 Mg Tab 40 MG PO HS for Cholesterol Management, #31 TAB (This prescription has been renewed) Ranitidine (Zantac) 150 Mg Tab 150 MG PO TID for Reflux, #90 TAB 0 Refills (This prescription has been renewed) Discontinued Medications: Carvedilol (Coreg) 3.125 Mg Tab 3.125 MG PO Q12HR for Blood Pressure Management, #31 TAB Hydralazine HCl (Hydralazine HCl) 25 Mg Tablet 25 MG PO Q8HR for Blood Pressure Management, #90 TAB [address] DO Feb 14, 2017 12:56
[2017-02-14 17:16] LABS: HEMOGLOBIN A1a 0.9 %; HEMOGLOBIN A1b 0.9 %; HEMOGLOBIN Ao 83.6 %; HEMOGLOBIN LA1C 2.3 %
== END 2017-02-14 14:20 | disposition home health service (06) | DRG 309 ==
LOC: NEPE 17:52 → NEDA 19:31 → HCPC 02-11 01:50
PROVIDERS: ADMIT Hospitalist; ATTEND Hospitalist
DX: R00.1 Bradycardia, unspecified (principal); N17.9 Acute kidney failure, unspecified; I95.9 Hypotension, unspecified; E11.22 Type 2 diabetes mellitus with diabetic chronic kidney disease; G30.9 Alzheimer's disease, unspecified; N18.3 Chronic kidney disease, stage 3 (moderate); M06.9 Rheumatoid arthritis, unspecified; F02.80 Dementia in other diseases classified elsewhere, unspecified severity, without behavioral disturbance, psychotic disturbance, mood disturbance, and anxiety; T44.7X5A Adverse effect of beta-adrenoreceptor antagonists, initial encounter; D72.829 Elevated white blood cell count, unspecified; I12.9 Hypertensive chronic kidney disease with stage 1 through stage 4 chronic kidney disease, or unspecified chronic kidney disease; E87.6 Hypokalemia; M79.7 Fibromyalgia; I25.10 Atherosclerotic heart disease of native coronary artery without angina pectoris; M54.5 Low back pain; G89.29 Other chronic pain; R29.6 Repeated falls; K21.9 Gastro-esophageal reflux disease without esophagitis; G47.00 Insomnia, unspecified; I25.2 Old myocardial infarction; G47.30 Sleep apnea, unspecified; M19.90 Unspecified osteoarthritis, unspecified site; F41.9 Anxiety disorder, unspecified; Z79.4 Long term (current) use of insulin; Z82.49 Family history of ischemic heart disease and other diseases of the circulatory system; Z86.711 Personal history of pulmonary embolism; Z86.73 Personal history of transient ischemic attack (TIA), and cerebral infarction without residual deficits; Z96.653 Presence of artificial knee joint, bilateral
CPT/HCPCS: 71010; 72072; 72100; 80053; 80069; 82550; 82948; 83036; 83735; 83880; 84100; 84439; 84443; 84484; 85025; 85610; 85730; 93005; 96361; 96374; J1815; J2060; J2270; J2405; J7030

== ENCOUNTER 2017-05-29 16:26 | Emergency (ER) | payer MEDICARE, BC ==
[~2017-05-29 16:26] MED LIST changes: -ACTO15TA22 PO; +AMLO10 PO; -AMLO5 PO; -ASPI-183 PO; +ASPI81TA16 PO; -CARV3.125 PO; +D31000CA3 PO; +FLUO1TAB3 PO; +HYDR-3799 PO; +ISOS30TA3 PO; +LISI-519 PO; -LORA-392 PO; +LORA2TAB7 PO; +METH500T3 PO; +MULT1CHW PO; -ONGL5TAB PO; -ORPH100T2 PO; -POLY17S PO; -REST15CA PO; -TIZA4TAB PO; -TRIL135C PO; +WALKER WHEELS/F1 MIS; +ZANT150T2 PO
[2017-05-29 16:48] VITALS: BP 139/66; PULSE 56; RESP 18; TEMP 98.6; O2SAT 100
--- NOTE | 2017-05-29 17:24 | RADRPT ---
EXAM DATE/TIME: 05/29/2017 17:03 [facility] COMPARISON: SPINE LUMBAR LTD (AP & LAT), February 10, 2017, 20:20. SPINE THORACIC AP/LAT/SW (3VW), February 10, 2017, 20:19. CHEST SINGLE AP, February 10, 2017, 18:04. INDICATIONS : Short of breath. MEDICAL HISTORY : Hypertension. Diabetes mellitus type 2. Alzheimers. Cardiomyopathy, SURGICAL HISTORY : Colon resection. ENCOUNTER: Initial ACUITY: 1 day PAIN SCORE: 0/10 LOCATION: Bilateral chest FINDINGS: Frontal and lateral views of the chest demonstrate cardiac silhouette size is mildly enlarged. Lungs are underinflated and there is interstitial prominence bilaterally. No pleural effusion, airspace con solidation, or pneumothorax is identified. The bones and soft tissues demonstrate no acute finding. T here are degenerative changes of the thoracic spine. There is stable height loss of T12 and L2. CONCLUSION: Underinflated examination without an acute abnormality identified. Cardiac silhouette remains mildly enlarged. Kevin Recinos MD on May 29, 2017 at 17:21 Board Certified Radiologist. This report was verified electronically.
[2017-05-29 19:00] VITALS: BP 145/60; PULSE 55; RESP 16; O2SAT 98
--- NOTE | 2017-05-29 19:00 | PD ---
HPI Chief Complaint: Cardiac Complaint Time Seen by Provider: 18:41 Travel History International Travel<30 days: No Contact w/Intl Traveler<30days: No Traveled to known affect area: No History of Present Illness HPI 71-year-old female was referred to ED for evaluation of hypotension and bradycardia. Patient went to see her pain management today. Blood pressure in the office was 100/60 and pulse in the 50s. Patient was advised by her physician to go to the ED for evaluation. Patient denies any headache. Patient denies any chest pain or shortness of breath. Patient denies abdominal pain. Patient denies any focal weakness or numbness of the extremity. Patient states that she has history of recurrent chest pain in the past. Last episode of chest pain was last week. Patient took nitroglycerin with relief of the pain. Patient has been seeing manager software development Dr. Aldrich. FORMERLY [facility], [facility] Past Medical History Alzheimer's Disease: Yes Anemia: Yes Arthritis: Yes Anxiety: Yes Depression: No Heart Rhythm Problems: Yes Cancer: No Cardiovascular Problems: Yes High Cholesterol: Yes Chest Pain: Yes Congestive Heart Failure: No Cerebrovascular Accident: Yes Coronary Artery Disease: Yes Dementia: Yes Diabetes: Yes Diminished Hearing: No Endocrine: Yes Fibromyalgia: Yes Gastrointestinal Disorders: Yes (ACID REFLUX) GERD: Yes Genitourinary: Yes (CYST RIGHT KIDNEY) Headaches: No Hepatitis: No Hiatal Hernia: No Hypertension: Yes Immune Disorder: Yes (RHEUMATOID ARTHRITIS ) Implanted Vascular Access Dvce: Yes Insomnia: Yes Musculoskeletal: Yes (FIBROMYALGIA; RHEUMATOID ARTHRITIS & OSTEOARTHRITIS) Neurologic: Yes (TIPS OF FINGERS "FEELS LIKE THEY ARE ASLEEP") Psychiatric: Yes Reproductive: No Respiratory: Yes (PNEUMONIA ) Migraines: No Myocardial Infarction: Yes Pneumonia: Yes Seizures: No Sleep Apnea: Yes (can not tolerate cpap) Thyroid Disease: No Ulcer: Yes (GASTRIC) Menopausal: Yes : 2 Para: 2 Past Surgical History Abdominal Surgery: Yes (CHOLECYSTECOMY) AICD: No Arteriovenous Shunt: No Body Medical Devices: RIGHT KNEE ? PARTIAL VS TOTAL REPLACEMENT Cardiac Surgery: Yes (LOOP RECORDER) Cholecystectomy: Yes Ear Surgery: No Endocrine Surgery: No Eye Surgery: No Genitourinary Surgery: No Gynecologic Surgery: No Insulin Pump: No Joint Replacement: Yes (RIGHT KNEE 2006, LEFT KNEE TOTAL REPLACEMENT 07/23/13) Neurologic Surgery: No Oral Surgery: No Pacemaker: No Thoracic Surgery: No Other Surgery: Yes (RIGHT TIB/FIB SURGERY 01/2014) Social History Alcohol Use: No Tobacco Use: No Substance Use: No Allergies-Medications (Allergen,Severity, Reaction): Coded Allergies: No Known Allergies (Verified Allergy, Unknown, 02/10/17) Reported Meds & Prescriptions Reported Meds & Active Scripts Active Lisinopril 5 Mg Tab 5 Mg PO DAILY Hydralazine HCl 25 Mg Tablet 50 Mg PO Q8HR Methocarbamol 500 Mg Tab 1,000 Mg PO Q8HR Zantac (Ranitidine HCl) 150 Mg Tab 150 Mg PO TID Fluoxetine (Fluoxetine HCl) 20 Mg Tab 20 Mg PO DAILY Isosorbide Mononitrate ER (Isosorbide Mononitrate) 30 Mg Marilyn 30 Mg PO DAILY Norvasc (Amlodipine Besylate) 10 Mg Tab 10 Mg PO DAILY Vitamin D-3 (Cholecalciferol) 1,000 Unit Cap 1,000 Units PO DAILY Aspirin Adult Low Strength (Aspirin) 81 Mg Tabdr 81 Mg PO DAILY Neurontin (Gabapentin) 300 Mg Cap 300 Mg PO TID Centrum Multigummies (Multivit-Minerals/Folic Acid) 80 Mcg Tab.chew 1 Chew PO DAILY Lorazepam 2 Mg Tab 2 Mg PO TID Levemir Inj (Insulin Detemir) 1,000 unit/ 10 ML Vial 20 Units SQ HS Do not mix with any other Insulin. Nitroglycerin SL (Nitroglycerin) 0.4 Mg Subl 0.4 Mg SL DIRECTED PRN ONE TABLET UNDER THE TONGUE NEEDED FOR CHEST PAIN, MAY REPEAT EVERY FIVE MINUTES FOR A TOTAL OF 3 DOSES OR CALL 911 IF NO RELIEF Fentanyl Patch 72 HR (Fentanyl) 75 Mcg/Hr Patch 75 Mcg T-DERMAL Q72H Remove old patch when new one placed. Percocet (Oxycodone-Acetaminophen) 10-325 mg Tab 1 Tab PO Q6H PRN Pravachol (Pravastatin) 40 Mg Tab 40 Mg PO HS Pantoprazole (Pantoprazole Sodium) 40 Mg Tab 40 Mg PO DAILY Lasix (Furosemide) 40 Mg Tab 40 Mg PO BID@,18 Fenofibrate 145 Mg Tab 145 Mg PO HS Catapres (Clonidine) 0.1 Mg Tab 0.1 Mg PO Q8H Walker with Front Wheels (Device) 1 Mis Mis Ea .ROUTE DIRECTED Review of Systems General / Constitutional: No: Fever Eyes: No: Visual changes HENT: No: Headaches Cardiovascular: No: Chest Pain or Discomfort Respiratory: No: Shortness of Breath Gastrointestinal: No: Abdominal Pain Genitourinary: No: Dysuria Musculoskeletal: No: Pain Skin: No Rash Neurologic: No: Weakness Psychiatric: No: Depression Endocrine: No: Polydipsia Hematologic/Lymphatic: No: Easy Bruising Physical Exam Narrative GENERAL: Well-nourished, well-developed patient. SKIN: Focused skin assessment warm/dry. HEAD: Normocephalic. EYES: No scleral icterus. No injection or drainage. NECK: Supple, trachea midline. No JVD or lymphadenopathy. CARDIOVASCULAR: Regular rate and rhythm without murmurs, gallops, or rubs. RESPIRATORY: Breath sounds equal bilaterally. No accessory muscle use. GASTROINTESTINAL: Abdomen soft, non-tender, nondistended. MUSCULOSKELETAL: No cyanosis, or edema. BACK: Nontender without obvious deformity. No CVA tenderness. Neurologic exam normal. Data Data Last Documented VS Vital Signs Date Time Temp Pulse Resp B/P (MAP) Pulse Ox O2 Delivery O2 Flow Rate FiO2 05/29/17 16:48 98.6 56 18 139/66 (90) 100 Orders Orders Electrocardiogram (05/29/17 16:51) Basic Metabolic Panel (Bmp) (05/29/17 16:51) Ckmb (Isoenzyme) Profile (05/29/17 16:51) Complete Blood Count With Diff (05/29/17 16:51) Magnesium (Mg) (05/29/17 16:51) Prothrombin Time / Inr (Pt) (05/29/17 16:51) Act Partial Throm Time (Ptt) (05/29/17 16:51) Troponin I (05/29/17 16:51) Chest, Pa & Lat (05/29/17 16:51) MDM Medical Decision Making Medical Screen Exam Complete: Yes Emergency Medical Condition: Yes Interpretation(s) 1858 PM. EKG shows sinus bradycardia rate 54. Nonspecific ST-T wave change. Chest x-ray shows no acute pathology. Differential Diagnosis Differential diagnosis including vasovagal reaction, transient hypotension, bradycardia. Narrative Course 71-year-old female was referred ED by her physician for blood pressure check and pulse check. Blood pressure was 100/60 and pulse in the 50s in the office. Blood pressure is 139/66 and pulse in the 50s ED now. Patient is feeling fine. Patient has no complaint. Diagnosis Primary Impression: BRADYCARDIA, UNSPECIFIED Patient Instructions: General Instructions Additional Instructions: Continue with medications. Follow-up with personal physician. Return if worse. Med/Other Pt SpecificInfo: No Change to Meds Disposition: 01 DISCHARGE HOME Condition: Stable Gurjit Fletcher MD May 29, 2017 19:00
--- NOTE | 2017-05-30 12:28 | EKG ---
Date Performed: 05/29/2017 Time Performed: 18:53:36 PTAGE: 71 years EKG: SINUS BRADYCARDIA BORDERLINE ECG PREVIOUS TRACING : 02/11/2017 15.56 Since the prior tracing, there has been no significant bonilla DOCTOR: Omero Wilson Interpretating Date/Time 05/30/2017 12:26:10
== END 2017-05-29 19:34 | disposition home or self-care (01) ==
LOC: NEPC 16:26
DX: R00.1 Bradycardia, unspecified (principal); I95.9 Hypotension, unspecified; G30.9 Alzheimer's disease, unspecified; F02.80 Dementia in other diseases classified elsewhere, unspecified severity, without behavioral disturbance, psychotic disturbance, mood disturbance, and anxiety; D64.9 Anemia, unspecified; M19.90 Unspecified osteoarthritis, unspecified site; E11.9 Type 2 diabetes mellitus without complications; I10 Essential (primary) hypertension; M06.9 Rheumatoid arthritis, unspecified
CPT/HCPCS: 71046; 93005; 99284

== ENCOUNTER 2017-07-09 01:11 | Emergency (ER) | payer MEDICARE, BC ==
[~2017-07-09] VITALS: Ht 152.4 cm; Wt 87.6 kg
[2017-07-09 01:17] VITALS: BP 185/79; PULSE 71; RESP 18; TEMP 98.6; O2SAT 93
--- NOTE | 2017-07-09 02:04 | PD ---
HPI Chief Complaint: Injury Time Seen by Provider: 02:03 Travel History International Travel<30 days: No Contact w/Intl Traveler<30days: No Traveled to known affect area: No History of Present Illness HPI 71-year-old female presents to the emergency department because of left-sided chest wall pain status post fall without syncope. Patient has history of frequent falls. Patient today was visiting her daughter who does not have handrails on the haddad to help her ambulate and she fell at her daughter's house and then was returned to her son's house where she lives and then this evening fell in the shower because she did not turn on the light of the bathroom before she went in. Patient denies hitting her head or having loss of consciousness. Patient states chest wall hurts since her fall this evening. Patient denies other concerns or complaints. PFSH Past Medical History Alzheimer's Disease: Yes Anemia: Yes Arthritis: Yes Anxiety: Yes Depression: No Heart Rhythm Problems: Yes Cancer: No Cardiovascular Problems: Yes High Cholesterol: Yes Chest Pain: Yes Congestive Heart Failure: No Cerebrovascular Accident: Yes Coronary Artery Disease: Yes Dementia: Yes Diabetes: Yes Patient Takes Glucophage: No Diminished Hearing: No Endocrine: Yes Fibromyalgia: Yes Gastrointestinal Disorders: Yes (ACID REFLUX) GERD: Yes Genitourinary: Yes (CYST RIGHT KIDNEY) Headaches: No Hepatitis: No Hiatal Hernia: No Hypertension: Yes Immune Disorder: Yes (RHEUMATOID ARTHRITIS ) Implanted Vascular Access Dvce: Yes Insomnia: Yes Musculoskeletal: Yes (FIBROMYALGIA; RHEUMATOID ARTHRITIS & OSTEOARTHRITIS) Neurologic: Yes (TIPS OF FINGERS "FEELS LIKE THEY ARE ASLEEP") Psychiatric: Yes Reproductive: No Respiratory: Yes (PNEUMONIA ) Migraines: No Myocardial Infarction: Yes Pneumonia: Yes Seizures: No Sleep Apnea: Yes (can not tolerate cpap) Thyroid Disease: No Ulcer: Yes (GASTRIC) Tetanus Vaccination: < 5 Years Menopausal: Yes : 2 Para: 2 Past Surgical History Abdominal Surgery: Yes (CHOLECYSTECOMY) AICD: No Arteriovenous Shunt: No Body Medical Devices: RIGHT KNEE ? PARTIAL VS TOTAL REPLACEMENT Cardiac Surgery: Yes (LOOP RECORDER) Cholecystectomy: Yes Ear Surgery: No Endocrine Surgery: No Eye Surgery: No Genitourinary Surgery: No Gynecologic Surgery: No Insulin Pump: No Joint Replacement: Yes (RIGHT KNEE 2006, LEFT KNEE TOTAL REPLACEMENT 07/23/13) Neurologic Surgery: No Oral Surgery: No Pacemaker: No Thoracic Surgery: No Other Surgery: Yes (RIGHT TIB/FIB SURGERY 01/2014) Family History Family Myocardial Infarction: Yes Social History Alcohol Use: No Tobacco Use: No Substance Use: No Allergies-Medications (Allergen,Severity, Reaction): Coded Allergies: No Known Allergies (Verified Allergy, Unknown, 02/10/17) Reported Meds & Prescriptions Reported Meds & Active Scripts Active Percocet (Oxycodone-Acetaminophen) 5-325 mg Tab 1 Tab PO Q6H PRN Lisinopril 5 Mg Tab 5 Mg PO DAILY Hydralazine HCl 25 Mg Tablet 50 Mg PO Q8HR Methocarbamol 500 Mg Tab 1,000 Mg PO Q8HR Zantac (Ranitidine HCl) 150 Mg Tab 150 Mg PO TID Fluoxetine (Fluoxetine HCl) 20 Mg Tab 20 Mg PO DAILY Isosorbide Mononitrate ER (Isosorbide Mononitrate) 30 Mg Marilyn 30 Mg PO DAILY Norvasc (Amlodipine Besylate) 10 Mg Tab 10 Mg PO DAILY Vitamin D-3 (Cholecalciferol) 1,000 Unit Cap 1,000 Units PO DAILY Aspirin Adult Low Strength (Aspirin) 81 Mg Tabdr 81 Mg PO DAILY Neurontin (Gabapentin) 300 Mg Cap 300 Mg PO TID Centrum Multigummies (Multivit-Minerals/Folic Acid) 80 Mcg Tab.chew 1 Chew PO DAILY Lorazepam 2 Mg Tab 2 Mg PO TID Levemir Inj (Insulin Detemir) 1,000 unit/ 10 ML Vial 20 Units SQ HS Do not mix with any other Insulin. Nitroglycerin SL (Nitroglycerin) 0.4 Mg Subl 0.4 Mg SL DIRECTED PRN ONE TABLET UNDER THE TONGUE NEEDED FOR CHEST PAIN, MAY REPEAT EVERY FIVE MINUTES FOR A TOTAL OF 3 DOSES OR CALL 911 IF NO RELIEF Fentanyl Patch 72 HR (Fentanyl) 75 Mcg/Hr Patch 75 Mcg T-DERMAL Q72H Remove old patch when new one placed. Percocet (Oxycodone-Acetaminophen) 10-325 mg Tab 1 Tab PO Q6H PRN Pravachol (Pravastatin) 40 Mg Tab 40 Mg PO HS Pantoprazole (Pantoprazole Sodium) 40 Mg Tab 40 Mg PO DAILY Lasix (Furosemide) 40 Mg Tab 40 Mg PO BID@,18 Fenofibrate 145 Mg Tab 145 Mg PO HS Catapres (Clonidine) 0.1 Mg Tab 0.1 Mg PO Q8H Walker with Front Wheels (Device) 1 Mis Mis Ea .ROUTE DIRECTED Review of Systems Except as stated in HPI: all other systems reviewed are Neg Physical Exam Narrative GENERAL: Well developed well nourished female in no acute distress or respiratory distress SKIN: Warm and dry. HEAD: Atraumatic. Normocephalic. EYES: Pupils equal and round. No scleral icterus. No injection or drainage. ENT: No nasal bleeding or discharge. Mucous membranes pink and moist. NECK: Trachea midline. No JVD. CARDIOVASCULAR: Regular rate and rhythm. Chest wall: tenderness to left lower lateral chest wall. No bruising no abrasion no laceration no puncture wound no subcutaneous emphysema no crepitus. RESPIRATORY: No accessory muscle use. Clear to auscultation. Breath sounds equal bilaterally. GASTROINTESTINAL: Abdomen soft, non-tender, nondistended. Hepatic and splenic margins not palpable. MUSCULOSKELETAL: Extremities without clubbing, cyanosis, or edema. No obvious deformities. NEUROLOGICAL: Awake and alert. No obvious cranial nerve deficits. Motor grossly within normal limits. Five out of 5 muscle strength in the arms and legs. Normal speech. PSYCHIATRIC: Appropriate mood and affect; insight and judgment normal. Data Data Last Documented VS Vital Signs Date Time Temp Pulse Resp B/P (MAP) Pulse Ox O2 Delivery O2 Flow Rate FiO2 07/09/17 01:17 98.6 71 18 185/79 (114) 93 Orders Orders Ribs, Uni (W/Exp Cxr-Min 3vw) (07/09/17 ) Oxycodone-Acetamin 5-325 Mg (Percocet (07/09/17 03:00) Ondansetron Liq (Zofran Liq) (07/09/17 03:00) Ed Discharge Order (07/09/17 03:21) MDM Medical Decision Making Medical Screen Exam Complete: Yes Emergency Medical Condition: Yes Medical Record Reviewed: Yes Interpretation(s) Last Impressions Ribs X-Ray 07/09/17 0000 Signed Impressions: Service Date/Time: Sunday, July 09, 2017 02:00 - CONCLUSION: Fractures of the left sixth and eighth ribs. Molina Perdomo MD Vital Signs Date Time Temp Pulse Resp B/P (MAP) Pulse Ox O2 Delivery O2 Flow Rate FiO2 07/09/17 01:17 98.6 71 18 185/79 (114) 93 Differential Diagnosis rib contusion, rib fracture, pneumothorax Narrative Course imaging studies ordered, pain medications administered Patient and family informed of imaging results and fracture of ribs 6 and rib 8 ; no pneumothorax Patient desirous of being discharged home encouraged to practice deep breathing exercises take pain medication as prescribed use walker to assist with ambulation and to follow-up with her primary care provider Son is aware of imaging results; patient will be discharged in the care of her jail son Diagnosis Primary Impression: Left rib fracture Qualified Codes: S22.42XA - Multiple fractures of ribs, left side, initial encounter for closed fracture Referrals: Primary Care Physician 1 day Patient Instructions: General Instructions Additional Instructions: Take pain medication as prescribed Follow-up with your primary care provider Return immediately to the emergency department for complaint of sudden onset shortness of breath or pain after forceful cough sneeze twist laugh or movement Increase fluid hydration Practice deep breathing May take as tolerated ibuprofen/Advil/Motrin maximum 600 mg maximum as often as every 6-8 hours Med/Other Pt SpecificInfo: Prescription(s) given Scripts Oxycodone-Acetaminophen (Percocet) 5-325 mg Tab 1 TAB PO Q6H Y for PAIN, #10 TAB 0 Refills Prov: Francia Mosley MD 07/09/17 Disposition: 01 DISCHARGE HOME Condition: Stable Francia Mosley MD Jul 09, 2017 02:04
[2017-07-09] MEDS ORDERED: ONDANSETRON HCL 4 MG/5 ML UDC PO ONE (03:00)
[2017-07-09] MEDS ORDERED: oxyCODONE/ACETAMINOPHEN 5 MG/325 MG TAB PO ONE (03:00)
--- NOTE | 2017-07-09 03:06 | RADRPT ---
EXAM DATE/TIME: 07/09/2017 02:00 [facility] COMPARISON: No previous studies available for comparison. INDICATIONS : Left side chest pain after falling 2 nights ago. MEDICAL HISTORY : Hypertension. Diabetes mellitus type II. Alzheimers. Cardiomyopathy. SURGICAL HISTORY : Colon resection. ENCOUNTER: Initial ACUITY: 2 days PAIN SCORE: 10/10 LOCATION: Left chest FINDINGS: Multiple views of the left ribs were performed. Fractures of the left sixth and eighth ribs.. No moises tructive lesions or areas of periosteal thickening are seen. Expiratory view of the chest is negativ e for pneumothorax. The mediastinal structures are midline. CONCLUSION: Fractures of the left sixth and eighth ribs. Molina Perdomo MD on July 09, 2017 at 3:04 Board Certified Radiologist. This report was verified electronically.
[2017-07-09] MEDS ORDERED: PERC5TAB12 PO (03:17)
[2017-07-09 03:35] VITALS: BP 174/80
== END 2017-07-09 03:37 | disposition home or self-care (01) ==
LOC: PHED 01:11 → PHEFT 03:37
DX: S22.42XA Multiple fractures of ribs, left side, initial encounter for closed fracture (principal); W19.XXXA Unspecified fall, initial encounter; Y93.E1 Activity, personal bathing and showering; Y92.002 Bathroom of unspecified non-institutional (private) residence as the place of occurrence of the external cause; G30.9 Alzheimer's disease, unspecified; F02.80 Dementia in other diseases classified elsewhere, unspecified severity, without behavioral disturbance, psychotic disturbance, mood disturbance, and anxiety; I10 Essential (primary) hypertension; E11.9 Type 2 diabetes mellitus without complications; Z91.81 History of falling
CPT/HCPCS: 71101; 99283

== ENCOUNTER 2017-07-15 12:02 | Emergency (ER) | payer MEDICARE, BC ==
[~2017-07-15] VITALS: Ht 152.4 cm; Wt 90.0 kg
[~2017-07-15 12:02] MED LIST changes: +PERC5TAB12 PO
[2017-07-15 12:07] VITALS: BP 202/96; PULSE 78; RESP 16; TEMP 98.8; O2SAT 96
--- NOTE | 2017-07-15 12:42 | PD ---
HPI Chief Complaint: Pain: Acute or Chronic Time Seen by Provider: 12:28 Travel History International Travel<30 days: No Contact w/Intl Traveler<30days: No Traveled to known affect area: No History of Present Illness HPI The patient was seen and examined in the presence of the nurse. This patient has been having problems with restless leg syndrome for the past 50+ years. She could not find her Percocet today and so came to the emergency room. No acute injury. Denies fever. Symptom severity is moderate. No alleviating factors. PFSH Past Medical History Hx Anticoagulant Therapy: Yes (BABY ASA DAILY) Alzheimer's Disease: Yes Anemia: Yes Arthritis: Yes (rheumatoid) Anxiety: Yes Depression: No Heart Rhythm Problems: Yes Cancer: No Cardiovascular Problems: Yes (VT, HTN, CHOL) High Cholesterol: Yes Chest Pain: Yes Congestive Heart Failure: No Cerebrovascular Accident: Yes (CVA- unclear information) Coronary Artery Disease: Yes Dementia: Yes Diabetes: Yes Patient Takes Glucophage: No Diminished Hearing: No Endocrine: Yes Fibromyalgia: Yes Gastrointestinal Disorders: Yes (ACID REFLUX) GERD: Yes Genitourinary: Yes (CYST RIGHT KIDNEY) Headaches: No Hepatitis: No Hiatal Hernia: No Hypertension: Yes Immune Disorder: Yes (RHEUMATOID ARTHRITIS ) Implanted Vascular Access Dvce: Yes Insomnia: Yes Musculoskeletal: Yes (FIBROMYALGIA; RHEUMATOID ARTHRITIS & OSTEOARTHRITIS) Neurologic: Yes (TIPS OF FINGERS "FEELS LIKE THEY ARE ASLEEP") Psychiatric: Yes Reproductive: No Respiratory: Yes (PNEUMONIA ) Migraines: No Myocardial Infarction: Yes Pneumonia: Yes Seizures: No Sleep Apnea: Yes (can not tolerate cpap) Thyroid Disease: No Ulcer: Yes (GASTRIC) ?: Not Menopausal: Yes : 2 Para: 2 Past Surgical History Abdominal Surgery: Yes (CHOLECYSTECOMY) AICD: No Arteriovenous Shunt: No Body Medical Devices: RIGHT KNEE ? PARTIAL VS TOTAL REPLACEMENT Cardiac Surgery: Yes (LOOP RECORDER) Cholecystectomy: Yes Ear Surgery: No Endocrine Surgery: No Eye Surgery: No Genitourinary Surgery: No Gynecologic Surgery: No Insulin Pump: No Joint Replacement: Yes (RIGHT KNEE 2006, LEFT KNEE TOTAL REPLACEMENT 07/23/13) Neurologic Surgery: No Oral Surgery: No Pacemaker: No Thoracic Surgery: No Other Surgery: Yes (RIGHT TIB/FIB SURGERY 01/2014) Family History Family Myocardial Infarction: Yes (unclear hx) Social History Alcohol Use: No Tobacco Use: No Substance Use: No Allergies-Medications (Allergen,Severity, Reaction): Coded Allergies: No Known Allergies (Verified Allergy, Unknown, 07/15/17) Reported Meds & Prescriptions Reported Meds & Active Scripts Active Percocet (Oxycodone-Acetaminophen) 5-325 mg Tab 1 Tab PO Q6H PRN Lisinopril 5 Mg Tab 5 Mg PO DAILY Hydralazine HCl 25 Mg Tablet 50 Mg PO Q8HR Methocarbamol 500 Mg Tab 1,000 Mg PO Q8HR Zantac (Ranitidine HCl) 150 Mg Tab 150 Mg PO TID Fluoxetine (Fluoxetine HCl) 20 Mg Tab 20 Mg PO DAILY Isosorbide Mononitrate ER (Isosorbide Mononitrate) 30 Mg Marilyn 30 Mg PO DAILY Norvasc (Amlodipine Besylate) 10 Mg Tab 10 Mg PO DAILY Vitamin D-3 (Cholecalciferol) 1,000 Unit Cap 1,000 Units PO DAILY Aspirin Adult Low Strength (Aspirin) 81 Mg Tabdr 81 Mg PO DAILY Neurontin (Gabapentin) 300 Mg Cap 300 Mg PO TID Centrum Multigummies (Multivit-Minerals/Folic Acid) 80 Mcg Tab.chew 1 Chew PO DAILY Lorazepam 2 Mg Tab 2 Mg PO TID Levemir Inj (Insulin Detemir) 1,000 unit/ 10 ML Vial 20 Units SQ HS Do not mix with any other Insulin. Nitroglycerin SL (Nitroglycerin) 0.4 Mg Subl 0.4 Mg SL DIRECTED PRN ONE TABLET UNDER THE TONGUE NEEDED FOR CHEST PAIN, MAY REPEAT EVERY FIVE MINUTES FOR A TOTAL OF 3 DOSES OR CALL 911 IF NO RELIEF Fentanyl Patch 72 HR (Fentanyl) 75 Mcg/Hr Patch 75 Mcg T-DERMAL Q72H Remove old patch when new one placed. Percocet (Oxycodone-Acetaminophen) 10-325 mg Tab 1 Tab PO Q6H PRN Pravachol (Pravastatin) 40 Mg Tab 40 Mg PO HS Pantoprazole (Pantoprazole Sodium) 40 Mg Tab 40 Mg PO DAILY Lasix (Furosemide) 40 Mg Tab 40 Mg PO BID@,18 Fenofibrate 145 Mg Tab 145 Mg PO HS Catapres (Clonidine) 0.1 Mg Tab 0.1 Mg PO Q8H Walker with Front Wheels (Device) 1 Mis Mis Ea .ROUTE DIRECTED Review of Systems General / Constitutional: No: Fever HENT: No: Headaches Cardiovascular: No: Chest Pain or Discomfort Respiratory: No: Cough Physical Exam Narrative GENERAL: Well-nourished, well-developed patient. SKIN: Focused skin assessment warm/dry. HEAD: Normocephalic. EYES: No scleral icterus. No injection or drainage. NECK: Supple, trachea midline. No JVD or lymphadenopathy. CARDIOVASCULAR: Regular rate and rhythm without murmurs, gallops, or rubs. RESPIRATORY: Breath sounds equal bilaterally. No accessory muscle use. GASTROINTESTINAL: Abdomen soft, non-tender, nondistended. MUSCULOSKELETAL: No cyanosis, or edema. Patient has hypersensitivity to the legs which she reports as neuropathy. No acute infection seen. No bony tenderness. They are restless BACK: Nontender without obvious deformity. No CVA tenderness. Data Data Last Documented VS Vital Signs Date Time Temp Pulse Resp B/P (MAP) Pulse Ox O2 Delivery O2 Flow Rate FiO2 07/15/17 12:07 98.8 78 16 202/96 (131) 96 Orders Orders Oxycodone-Acetamin 5-325 Mg (Percocet (07/15/17 12:45) Lorazepam (Ativan) (07/15/17 12:45) [facility] Medical Decision Making Medical Screen Exam Complete: Yes Emergency Medical Condition: Yes Medical Record Reviewed: Yes Differential Diagnosis Restless leg syndrome, narcotic withdrawal, muscle spasm Narrative Course I have reviewed the patient's electronic medical record. This patient has a flare of a chronic problem No indication for studies I gave her Percocet and Ativan here and I will write her 6 Percocet on prescription She should contact her physician tomorrow Diagnosis Primary Impression: Restless leg syndrome, uncontrolled Additional Instructions: The patient was warned about potential sedation for the medications they will receive on prescription. The patient was advised to follow up with their physician and return if they worsen. Med/Other Pt SpecificInfo: Prescription(s) given Disposition: DISCHARGE HOME Condition: Stable Sebas Gomez MD Jul 15, 2017 12:42
[2017-07-15] MEDS ORDERED: oxyCODONE/ACETAMINOPHEN 5 MG/325 MG TAB PO ONE (12:45)
[2017-07-15] MEDS ORDERED: LORazepam 1 MG TAB PO ONE (12:45)
[2017-07-15] MEDS ORDERED: PERC5TAB12 PO (13:14)
== END 2017-07-15 13:22 | disposition home or self-care (01) ==
LOC: PHED 12:02
DX: G25.81 Restless legs syndrome (principal); G30.9 Alzheimer's disease, unspecified; F02.80 Dementia in other diseases classified elsewhere, unspecified severity, without behavioral disturbance, psychotic disturbance, mood disturbance, and anxiety; I10 Essential (primary) hypertension; M06.9 Rheumatoid arthritis, unspecified; M79.7 Fibromyalgia; E11.9 Type 2 diabetes mellitus without complications; K21.9 Gastro-esophageal reflux disease without esophagitis; Z86.73 Personal history of transient ischemic attack (TIA), and cerebral infarction without residual deficits
CPT/HCPCS: 99283

== ENCOUNTER 2017-07-17 04:06 | Observation (INO) | payer MEDICARE, BC ==
[2017-07-17] VITALS (9 sets, daily range): BP systolic 144–184; BP diastolic 68–92; PULSE 64–100; RESP 16–18; TEMP 97.4–99; O2SAT 94–98
--- NOTE | 2017-07-17 04:44 | PD ---
HPI Chief Complaint: Medical Clearance Time Seen by Provider: 04:17 Travel History International Travel<30 days: No Contact w/Intl Traveler<30days: No Traveled to known affect area: No History of Present Illness HPI The patient is a 71 year old female who presents to the [facility] emergency department with a history of generalized body cramping, exacerbation of chronic back pain that began to worsen over the last month when she spoke to her pain management doctor and requested to come off of her fentanyl patch. The patient reports that she is followed by Dr. Cordova for her pain management. She reports having chronic pain related to rheumatoid arthritis, joint pains and low back pain. The patient reports that she wanted to come off of the fentanyl patch because her family suggested that she do this. She reports that she has continued to be on Percocet 10/325 1 tablet every 6 hours as needed for pain. However she is also ran out of this medication. The patient was seen on July [address] Gomez reporting that she had misplaced her pain medication and was given Ativan p.o., Percocet p.o. and a short course of a prescription of Percocet 6 tablets. The patient reports to me that she last took a Percocet on Sunday, however she was given this prescription after that. Therefore, there is some confusion as to when exactly the patient took her last Percocet. Her son is at the bedside and reports concern for his mother 's well-being as she seems to abuse narcotics. The patient reports that she feels like she is going to have another heart attack because of the pain. She reports that she had a myocardial infarction in 2016. She reports that her trauma program manager is . She reports that since last night she has had intermittent chest pains in the left side of her chest associated with shortness of breath, nausea, vomiting, and diarrhea. She reports that her next appointment with her pain management doctor is scheduled for Sunday. She cannot recall when she last had a stress test, however she reports that it was done at this facility. On review of systems otherwise, the patient denies having any known recent fevers,cough, congestion, abdominal pain, urinary symptoms, or neurologic symptoms. [facility] Past Medical History Narrative Medical The patient's past medical history is significant for rheumatoid arthritis, history of cerebrovascular accident, diabetes mellitus, hypertension, dyslipidemia, acid reflux, prior history of pulmonary embolism as a complication of surgery, history of Alzheimer's dementia, anemia, arthritis, anxiety disorder, history of a non-STEMI as a complication of respiratory failure requiring admission in February 2016, history of sleep apnea, acid reflux, insomnia, rheumatoid arthritis, peptic ulcer disease. Hx Anticoagulant Therapy: Yes (BABY ASA DAILY) Alzheimer's Disease: Yes Anemia: Yes Arthritis: Yes (rheumatoid) Anxiety: Yes Depression: No Heart Rhythm Problems: Yes Cancer: No Cardiovascular Problems: Yes (NC, HTN, CHOL) High Cholesterol: Yes Chest Pain: Yes Congestive Heart Failure: No Cerebrovascular Accident: Yes (CVA) Coronary Artery Disease: Yes Dementia: Yes Diabetes: Yes Patient Takes Glucophage: No Diminished Hearing: No Endocrine: Yes Fibromyalgia: Yes Gastrointestinal Disorders: Yes (ACID REFLUX) GERD: Yes Genitourinary: Yes (CYST RIGHT KIDNEY) Headaches: No Hepatitis: No Hiatal Hernia: No Hypertension: Yes Immune Disorder: Yes (RHEUMATOID ARTHRITIS ) Implanted Vascular Access Dvce: Yes Insomnia: Yes Musculoskeletal: Yes (FIBROMYALGIA; RHEUMATOID ARTHRITIS & OSTEOARTHRITIS) Neurologic: Yes (TIPS OF FINGERS "FEELS LIKE THEY ARE ASLEEP") Psychiatric: Yes Reproductive: No Respiratory: Yes (PNEUMONIA ) Immunizations Current: Yes Migraines: No Myocardial Infarction: Yes Pneumonia: Yes Seizures: No Sleep Apnea: Yes (HX NOT TOLERATING CPAP) Thyroid Disease: No Ulcer: Yes (GASTRIC) Menopausal: Yes : 2 Para: 2 Past Surgical History Narrative Surgical The patient's past surgical history is significant for cholecystectomy, bilateral knee replacement, hip surgery. Abdominal Surgery: Yes (CHOLECYSTECOMY) AICD: No Arteriovenous Shunt: No Body Medical Devices: RIGHT KNEE ? PARTIAL VS TOTAL REPLACEMENT Cardiac Surgery: Yes (LOOP RECORDER) Cholecystectomy: Yes Ear Surgery: No Endocrine Surgery: No Eye Surgery: No Genitourinary Surgery: No Gynecologic Surgery: No Insulin Pump: No Joint Replacement: Yes (RIGHT KNEE 2006, LEFT KNEE TOTAL REPLACEMENT 07/23/13) Neurologic Surgery: No Oral Surgery: No Pacemaker: No Thoracic Surgery: No Other Surgery: Yes (RIGHT TIB/FIB SURGERY 01/2014) Family History Family Myocardial Infarction: Yes Social History Alcohol Use: No Tobacco Use: No Substance Use: No Allergies-Medications (Allergen,Severity, Reaction): Coded Allergies: No Known Allergies (Verified Allergy, Unknown, 07/17/17) Reported Meds & Prescriptions Reported Meds & Active Scripts Active Percocet (Oxycodone-Acetaminophen) 5-325 mg Tab 1 Tab PO Q6H PRN Percocet (Oxycodone-Acetaminophen) 5-325 mg Tab 1 Tab PO Q6H PRN Lisinopril 5 Mg Tab 5 Mg PO DAILY Hydralazine HCl 25 Mg Tablet 50 Mg PO Q8HR Methocarbamol 500 Mg Tab 1,000 Mg PO Q8HR Zantac (Ranitidine HCl) 150 Mg Tab 150 Mg PO TID Fluoxetine (Fluoxetine HCl) 20 Mg Tab 20 Mg PO DAILY Isosorbide Mononitrate ER (Isosorbide Mononitrate) 30 Mg Marilyn 30 Mg PO DAILY Norvasc (Amlodipine Besylate) 10 Mg Tab 10 Mg PO DAILY Vitamin D-3 (Cholecalciferol) 1,000 Unit Cap 1,000 Units PO DAILY Aspirin Adult Low Strength (Aspirin) 81 Mg Tabdr 81 Mg PO DAILY Neurontin (Gabapentin) 300 Mg Cap 300 Mg PO TID Centrum Multigummies (Multivit-Minerals/Folic Acid) 80 Mcg Tab.chew 1 Chew PO DAILY Lorazepam 2 Mg Tab 2 Mg PO TID Levemir Inj (Insulin Detemir) 1,000 unit/ 10 ML Vial 20 Units SQ HS Do not mix with any other Insulin. Nitroglycerin SL (Nitroglycerin) 0.4 Mg Subl 0.4 Mg SL DIRECTED PRN ONE TABLET UNDER THE TONGUE NEEDED FOR CHEST PAIN, MAY REPEAT EVERY FIVE MINUTES FOR A TOTAL OF 3 DOSES OR CALL 911 IF NO RELIEF Fentanyl Patch 72 HR (Fentanyl) 75 Mcg/Hr Patch 75 Mcg T-DERMAL Q72H Remove old patch when new one placed. Percocet (Oxycodone-Acetaminophen) 10-325 mg Tab 1 Tab PO Q6H PRN Pravachol (Pravastatin) 40 Mg Tab 40 Mg PO HS Pantoprazole (Pantoprazole Sodium) 40 Mg Tab 40 Mg PO DAILY Lasix (Furosemide) 40 Mg Tab 40 Mg PO BID@ Fenofibrate 145 Mg Tab 145 Mg PO HS Catapres (Clonidine) 0.1 Mg Tab 0.1 Mg PO Q8H Walker with Front Wheels (Device) 1 Mis Mis Ea .ROUTE DIRECTED Review of Systems Except as stated in HPI: all other systems reviewed are Neg General / Constitutional: No: Fever Eyes: No: Visual changes HENT: No: Headaches, Congestion Cardiovascular: Positive: Chest Pain or Discomfort, Dyspnea on exertion Respiratory: Positive: Shortness of Breath, No: Cough Gastrointestinal: Positive: Nausea, Vomiting, Diarrhea, No: Abdominal Pain Genitourinary: No: Dysuria Musculoskeletal: Positive: Myalgias, Cramping, Pain Skin: No Rash Neurologic: No: Weakness, Focal Abnormalities, Change in Mentation, Slurred Speech, Sensory Disturbance Psychiatric: No: Depression Endocrine: No: Polydipsia Hematologic/Lymphatic: No: Easy Bruising Physical Exam Narrative General: The patient is a well-developed well-nourished female, uncomfortable appearing on my arrival to the room, standing up at the bedside bending over the gurney with her head on the gurney. Head and Neck exam: Head is normocephalic atraumatic. Eyes: EOMI, pupils are equal round and reactive to light. Nose: Midline septum with pink mucous membranes Mouth: Dentition unremarkable. Moist mucus membranes. Posterior oropharynx is not erythematous. No tonsillar hypertrophy. Uvula midline. Airway patent. Neck: No palpable lymphadenopathy. No nuchal rigidity. No thyromegaly. Cardiovascular: Regular rate and rhythm without murmurs, gallops, or rubs. No pulse deficit to the extremities on simultaneous auscultation and palpation of her radial artery. Lungs: Clear to auscultation bilaterally. No wheezes, rhonchi, or rales. Abdomen: Soft, without tenderness to palpation in all 4 quadrants of the abdomen. No guarding, rebound, or rigidity. Normal bowel sounds are audible. No tenderness on palpation of McBurney's point. Negative Isbell sign. Extremities: No clubbing, cyanosis, or edema. 2+ pulses in all 4 extremities. No calf tenderness on palpation. No joint swelling or erythema. Back: No spinous process tenderness to palpation. No costovertebral angle tenderness to palpation. Neurologic Exam: Grossly nonfocal. Slightly tremulous on exam. The patient is anxious appearing. Skin Exam: No rash noted. Intact skin that is warm and dry. Data Data Last Documented VS Vital Signs Date Time Temp Pulse Resp B/P (MAP) Pulse Ox O2 Delivery O2 Flow Rate FiO2 07/17/17 06:21 18 07/17/17 05:59 92 07/17/17 05:50 184/92 (122) 97 Room Air 07/17/17 04:10 97.5 Orders Orders Electrocardiogram (07/17/17 05:15) B-Type Natriuretic Peptide (07/17/17 05:15) Ckmb (Isoenzyme) Profile (07/17/17 05:15) Complete Blood Count With Diff (07/17/17 05:15) Comprehensive Metabolic Panel (07/17/17 05:15) Magnesium (Mg) (07/17/17 05:15) Prothrombin Time / Inr (Pt) (07/17/17 05:15) Act Partial Throm Time (Ptt) (07/17/17 05:15) Troponin I (07/17/17 05:15) Lipase (07/17/17 05:15) Ecg Monitoring (07/17/17 05:15) Bilateral Bp Monitoring (07/17/17 05:15) Iv Access Insert/Monitor (07/17/17 05:15) Oximetry (07/17/17 05:15) Oxygen Administration (07/17/17 05:15) Aspirin Chew (Aspirin Chew) (07/17/17 05:15) Nitroglycerin 2% Oint (Nitroglycerin 2% (07/17/17 05:15) Sodium Chloride 0.9% Flush (Ns Flush) (07/17/17 05:15) Nitroglycerin Sl (Nitrostat Sl) (07/17/17 05:15) Oxycodone-Acetamin 10-325 Mg (Percocet 1 (07/17/17 05:15) Sodium Chlorid 0.9% 500 Ml Inj (Ns 500 M (07/17/17 05:15) Ondansetron Inj (Zofran Inj) (07/17/17 05:15) Chest, Single Ap (07/17/17 05:15) Lorazepam Inj (Ativan Inj) (07/17/17 06:15) Admit Order (Ed Use Only) (07/17/17 06:31) Labs Laboratory Tests Test 07/17/17 05:30 White Blood Count 13.2 TH/MM3 Red Blood Count 5.45 MIL/MM3 Hemoglobin 15.3 GM/DL Hematocrit 45.0 % Mean Corpuscular Volume 82.6 FL Mean Corpuscular Hemoglobin 28.0 PG Mean Corpuscular Hemoglobin Concent 33.9 % Red Cell Distribution Width 15.8 % Platelet Count 431 TH/MM3 Mean Platelet Volume 7.0 FL Neutrophils (%) (Auto) 70.6 % Lymphocytes (%) (Auto) 19.3 % Monocytes (%) (Auto) 9.0 % Eosinophils (%) (Auto) 0.7 % Basophils (%) (Auto) 0.4 % Neutrophils # (Auto) 9.3 TH/MM3 Lymphocytes # (Auto) 2.5 TH/MM3 Monocytes # (Auto) 1.2 TH/MM3 Eosinophils # (Auto) 0.1 TH/MM3 Basophils # (Auto) 0.1 TH/MM3 CBC Comment DIFF FINAL Differential Comment Prothrombin Time 11.6 SEC Prothromb Time International Ratio 1.1 RATIO Activated Partial Thromboplast Time 26.1 SEC Blood Urea Nitrogen 8 MG/DL Creatinine 0.88 MG/DL Random Glucose 155 MG/DL Total Protein 8.6 GM/DL Albumin 4.0 GM/DL Calcium Level 9.6 MG/DL Magnesium Level 1.6 MG/DL Alkaline Phosphatase 55 U/L Aspartate Amino Transf (AST/SGOT) 19 U/L Alanine Aminotransferase (ALT/SGPT) 21 U/L Total Bilirubin 0.6 MG/DL Sodium Level 140 MEQ/L Potassium Level 3.3 MEQ/L Chloride Level 106 MEQ/L Carbon Dioxide Level 23.7 MEQ/L Anion Gap 10 MEQ/L Estimat Glomerular Filtration Rate 63 ML/MIN Total Creatine Kinase 82 U/L Troponin I LESS THAN 0.02 NG/ML B-Type Natriuretic Peptide 43 PG/ML Lipase 134 U/L MDM Medical Decision Making Medical Screen Exam Complete: Yes Emergency Medical Condition: Yes Medical Record Reviewed: Yes Interpretation(s) Last Impressions Chest X-Ray 07/17/17 0515 Signed Impressions: Service Date/Time: Monday, July 17, 2017 05:53 - CONCLUSION: No evidence of acute cardiopulmonary disease. Kevin Savage MD Differential Diagnosis Opiate withdrawal, versus benzodiazepine withdrawal, versus acute coronary syndrome Narrative Course During the course of the patient's emergency department visit, the patient's history, examination, and differential diagnosis were reviewed with the patient. The patient was placed on a cardiac technician with oximetry and frequent blood pressure monitoring. The patient had IV access obtained and blood work sent for analysis. The patient had an EKG done on arrival that shows a sinus rhythm heart rate of 93, QRS duration 70 ms, QTC [address] segment elevation. The patient was initially provided aspirin 324 mg p.o. 1, nitroglycerin sublingual every 5 minutes 3 as needed chest pain, nitroglycerin 1 inch the chest wall. The patient was provided Percocet for pain. The patient's electronic medical record was reviewed and the patient's last noted stress test was February 29, 2016 when she was admitted for a non-STEMI after being intubated for respiratory failure. That stress test showed no significant reversibility to suggest ischemia, normal wall motion with an ejection fraction of 57%. The patient's laboratory studies were reviewed and remarkable for a white count of 13.2, hemoglobin 15.3, platelets 431 with neutrophils 70.6, CMP is remarkable for potassium of 3.3, glucose 155, cardiac enzymes within normal limits, BNP 43, lipase 134, PT PTT within normal limits Radiology studies were reviewed and remarkable for a chest x-ray that shows no evidence of acute cardiopulmonary disease. The patient was reexamined and reported feeling improved. Given the fact that the patient's last stress test was done in 2015 and the patient reports recurrent chest pain, the patient will be admitted to the chest pain center for rule out serial cardiac enzyme protocol followed by consideration of stress testing. The patient's results were discussed with the patient, including the plan of care. I explained that further testing and/ or monitoring is indicated based on the patient's history, examination, and/ or laboratory findings. Therefore, I recommended admission for additional evaluation. The patient expressed understanding and was agreeable with this plan. The patient was admitted to the hospital in stable condition and sent to a bed under the care of the chest pain center. Diagnosis Primary Impression: Chest pain, rule out acute myocardial infarction Additional Impressions: Anxiety disorder Qualified Codes: F41.9 - Anxiety disorder, unspecified Chronic use of opiate drugs therapeutic purposes Admitting Information Admitting Physician Requests: Marilee Wallace MD Jul 17, 2017 04:44
[2017-07-17] MEDS ORDERED: ASPIRIN 81 MG CHEW TAB PO ONE (05:15)
[2017-07-17] MEDS ORDERED: NITROGLYCERIN 2% OINT 1 GM PACKET TOP ONE (05:15)
[2017-07-17] MEDS ORDERED: SODIUM CHLORIDE 0.9% FLUSH 10 ML FLUSH IVF PRN (05:15)
[2017-07-17] MEDS ORDERED: NITROGLYCERIN 0.4 MG SL 25 TABS/BTL SL ONE (05:15)
[2017-07-17] MEDS ORDERED: oxyCODONE/ACETAMINOPHEN 10 MG/325 MG TAB PO ONE (05:15)
[2017-07-17] MEDS ORDERED: SODIUM CHLORID 0.9% 500 ML INJ 500 ML IV ONE (05:15)
[2017-07-17] MEDS ORDERED: ONDANSETRON HCL 4 MG/2 ML VIAL IV PUSH ONE (05:15)
[2017-07-17 05:45] LABS: AUTOMATED NEUTROPHIL # 9.3 TH/MM3 (1.8-7.7); BASOPHIL # 0.1 TH/MM3 (0-0.2); BASOPHIL % 0.4 % (0.0-2.0); EOSINOPHIL # 0.1 TH/MM3 (0-0.4); EOSINOPHIL % 0.7 % (0.0-4.0); HEMOGLOBIN 15.3 GM/DL (11.6-15.3); LYMPH % 19.3 % (9.0-44.0); LYMPHOCYTE # 2.5 TH/MM3 (1.0-4.8); MEAN CELL VOLUME 82.6 FL (80.0-100.0); MEAN CORPUSCULAR HGB CONC 33.9 % (32.0-36.0); MONOCYTE # 1.2 TH/MM3 (0-0.9); NEUT % 70.6 % (16.0-70.0); PLATELET COUNT 431 TH/MM3 (150-450); RED BLOOD COUNT 5.45 MIL/MM3 (4.00-5.30); RED CELL DISTRIBUTION WIDTH 15.8 % (11.6-17.2); WHITE BLOOD COUNT 13.2 TH/MM3 (4.0-11.0)
[2017-07-17 06:00] LABS: INTERNATIONAL NORMALIZED RATIO 1.1 RATIO; PROTHROMBIN TIME - PATIENT 11.6 SEC (9.8-11.6)
[2017-07-17 06:14] LABS: ALT (GPT) 21 U/L (10-53); AST (GOT) 19 U/L (15-37); BICARBONATE 23.7 MEQ/L (21.0-32.0); BLOOD UREA NITROGEN 8 MG/DL (7-18); CALCIUM 9.6 MG/DL (8.5-10.1); CHLORIDE 106 MEQ/L (98-107); CREATININE 0.88 MG/DL (0.50-1.00); GLOMERULAR FILTRATION RATE 63 ML/MIN (>89); GLUCOSE,RANDOM 155 MG/DL (74-106); MAGNESIUM 1.6 MG/DL (1.5-2.5); SODIUM (NA) 140 MEQ/L (136-145)
[2017-07-17] MEDS ORDERED: LORazepam 2 MG/ML VIAL IV PUSH ONE (06:15)
--- NOTE | 2017-07-17 06:16 | RADRPT ---
EXAM DATE/TIME: 07/17/2017 05:53 [facility] COMPARISON: No previous studies available for comparison. INDICATIONS : Short of breath. MEDICAL HISTORY : Hypertension. Diabetes mellitus type 2. Alzheimers. Cardiomyopathy, SURGICAL HISTORY : Colon resection. ENCOUNTER: Initial ACUITY: 1 day PAIN SCORE: 0/10 LOCATION: Bilateral chest FINDINGS: A single view of the chest demonstrates the lungs to be symmetrically aerated without evidence of mas s, infiltrate or effusion. The cardiomediastinal contours are unremarkable. Osseous structures are grossly intact. CONCLUSION: No evidence of acute cardiopulmonary disease. Kevin Savage MD on July 17, 2017 at 6:14 Board Certified Radiologist. This report was verified electronically.
[2017-07-17 06:17] LABS: ALKALINE PHOSPHATASE 55 U/L (45-117); TOTAL BILIRUBIN ADULT 0.6 MG/DL (0.2-1.0); TOTAL PROTEIN 8.6 GM/DL (6.4-8.2); TROPONIN I LESS THAN 0.02 NG/ML (0.02-0.05)
[2017-07-17] MEDS ORDERED: DEXTROSE 50% IN WATER 50 ML VIAL(D50) IV PUSH PRN (08:45)
[2017-07-17] MEDS ORDERED: ONDANSETRON HCL 4 MG/2 ML VIAL IV PUSH PRN (08:45)
[2017-07-17] MEDS ORDERED: GLUCAGON 1 MG/ML VIAL OTHER PRN (08:45)
[2017-07-17] MEDS ORDERED: ACETAMINOPHEN 500 MG CPLT PO PRN (08:45)
[2017-07-17] MEDS ORDERED: FLUoxetine HCL 20 MG CAP PO SCH (09:00)
[2017-07-17] MEDS ORDERED: NON-FORMULARY DRUG (Ranitidine (Zantac) 150 MG) PO SCH (09:00)
[2017-07-17] MEDS ORDERED: ISOSORBIDE MONONITRATE 30 MG CR TAB (IMDUR) PO SCH (09:00)
[2017-07-17] MEDS ORDERED: LISINOPRIL 5 MG TAB PO SCH (09:00)
[2017-07-17] MEDS ORDERED: PANTOPRAZOLE SOD 40 MG DELAYED RELEASE TAB PO SCH (09:00)
[2017-07-17] MEDS: GABAPENTIN 300 MG CAP PO SCH ×2 (09:19→13:43)
[2017-07-17 09:24] LABS: TROPONIN I LESS THAN 0.02 NG/ML (0.02-0.05)
--- NOTE | 2017-07-17 09:29 | HHI.HP ---
HPI Primary Care Physician Reynaldo Menendez D.O. Chief Complaint I am withdrawing from medication History of Present Illness This is a 71-year-old female that presents to ED with history of non-STEMI 2016 , CVA, 2016, rheumatoid arthritis, hypertension, hyperlipidemia, diabetes, GERD , chronic arthralgias and on chronic opiate and benzodiazepine medications. Patient presents stating "I am withdrawing from medication." States she has taken Percocet for many years but was unable to get it yesterday. States she took the medicine with her when she went shopping however that he will bottle went missing some time when she was shopping. Also states that she stopped taking Ativan 3 days ago, states she felt a little nauseous and thought she should not take the medication. States that around 3:00 this morning all her muscles were cramping and twitching and she felt nauseous short of breath and diaphoretic. She also had the sensation that on every fifth or sixth heart beat that a beat would either skip or slow down. Denies ever having chest discomfort. States she follows Dr. Aldrich of cardiology. States she sees him on a monthly basis and is scheduled to see him on . Patient does not want to have a stress test. States she feels better after getting medication in the ED. Patient was given IV Ativan and given also her Percocet. Upon reviewing records she had a nonischemic Lexiscan at this facility February 2016. Review of Systems General: Patient denies fevers, chills, and recent travel. HEENT: Patient denies headache, sore throat, difficulty swallowing. Cardiovascular: Has the chest discomfort as mentioned above. Denies sensation of heart beating rapidly or irregularly. No syncope. She was diaphoretic. Respiratory: She was short of breath. Denies inspirational chest discomfort. Denies coughing wheezing or hemoptysis. GI: She was nauseous. Patient denies vomiting, diarrhea, abdominal pain, bloody stools. Musculoskeletal: Chronic arthralgias. Patient denies joint edema. Denies calf pain or edema. Neurovascular: Patient denies numbness, tingling, weakness in extremities. Denies headache. Endocrine: Denies polyuria and polydipsia. Hematologic: Denies easy bruising. Skin: Denies rash or itching. Past Family Social History Allergies: Coded Allergies: No Known Allergies (Verified Allergy, Unknown, 07/17/17) Past Medical History Hypertension, hyperlipidemia, diabetes, GERD, rheumatoid arthritis, chronic pain , CVA and SD 2016, has a loop recorder. Denies known CAD. Past Surgical History Patient has a loop recorder. Cholecystectomy, right knee. Reported Medications Reported Meds & Active Scripts Active Lisinopril 5 Mg Tab 5 Mg PO DAILY Hydralazine HCl 25 Mg Tablet 50 Mg PO Q8HR Methocarbamol 500 Mg Tab 1,000 Mg PO Q8HR Zantac (Ranitidine HCl) 150 Mg Tab 150 Mg PO TID Fluoxetine (Fluoxetine HCl) 20 Mg Tab 20 Mg PO DAILY Isosorbide Mononitrate ER (Isosorbide Mononitrate) 30 Mg Marilyn 30 Mg PO DAILY Norvasc (Amlodipine Besylate) 10 Mg Tab 10 Mg PO DAILY Vitamin D-3 (Cholecalciferol) 1,000 Unit Cap 1,000 Units PO DAILY Aspirin Adult Low Strength (Aspirin) 81 Mg Tabdr 81 Mg PO DAILY Neurontin (Gabapentin) 300 Mg Cap 300 Mg PO TID Centrum Multigummies (Multivit-Minerals/Folic Acid) 80 Mcg Tab.chew 1 Chew PO DAILY Lorazepam 2 Mg Tab 2 Mg PO TID Levemir Inj (Insulin Detemir) 1,000 unit/ 10 ML Vial 20 Units SQ HS Do not mix with any other Insulin. Nitroglycerin SL (Nitroglycerin) 0.4 Mg Subl 0.4 Mg SL DIRECTED PRN ONE TABLET UNDER THE TONGUE NEEDED FOR CHEST PAIN, MAY REPEAT EVERY FIVE MINUTES FOR A TOTAL OF 3 DOSES OR CALL 911 IF NO RELIEF Fentanyl Patch 72 HR (Fentanyl) 75 Mcg/Hr Patch 75 Mcg T-DERMAL Q72H Remove old patch when new one placed. Percocet (Oxycodone-Acetaminophen) 10-325 mg Tab 1 Tab PO Q6H PRN Pravachol (Pravastatin) 40 Mg Tab 40 Mg PO HS Pantoprazole (Pantoprazole Sodium) 40 Mg Tab 40 Mg PO DAILY Lasix (Furosemide) 40 Mg Tab 40 Mg PO BID@,18 Fenofibrate 145 Mg Tab 145 Mg PO HS Catapres (Clonidine) 0.1 Mg Tab 0.1 Mg PO Q8H Walker with Front Wheels (Device) 1 Mis Mis Ea .ROUTE DIRECTED Active Ordered Medications Current Medications Medications (Trade) Dose Ordered Sig/Andrea Route Start Time Stop Time Status Last Admin (NS Flush) 2 ml UNSCH PRN IVF 07/17/17 05:15 (Norvasc) 10 mg DAILY PO 07/17/17 09:00 07/17/17 09:19 (PROzac) 20 mg DAILY PO 07/17/17 09:00 (Neurontin) 300 mg TID PO 07/17/17 09:00 07/17/17 09:19 (Imdur) 30 mg DAILY@0700 PO 07/17/17 09:00 (Prinivil) 5 mg DAILY PO 07/17/17 09:00 07/17/17 09:19 (Protonix) 40 mg DAILY PO 07/17/17 09:00 07/17/17 09:19 (Pravachol) 40 mg HS PO 07/17/17 21:00 (Percocet 10-325 Mg) 1 tab Q6H PRN PO 07/17/17 08:30 (Tylenol) 500 mg Q4H PRN PO 07/17/17 08:45 (Zofran Inj) 4 mg Q6H PRN IV PUSH 07/17/17 08:45 (Aspirin) 325 mg DAILY PO 07/18/17 09:00 (D50w (Vial) Inj) 50 ml UNSCH PRN IV PUSH 07/17/17 08:45 (Glucagon Inj) 1 mg UNSCH PRN OTHER 07/17/17 08:45 (NovoLOG SUPPLEMENTAL SCALE) 1 ACHS SLIDING SCALE SQ 07/17/17 12:00 Family History Her mother had an SD in late 80s. Social History Does not smoke. Denies alcohol or illicit drug use. Physical Exam Vital Signs Vital Signs Date Time Temp Pulse Resp B/P (MAP) Pulse Ox O2 Delivery O2 Flow Rate FiO2 07/17/17 09:04 98 Nasal Cannula 3.00 07/17/17 08:08 64 17 164/72 (102) 98 Nasal Cannula 2.00 07/17/17 06:21 18 07/17/17 06:01 18 07/17/17 05:59 92 18 07/17/17 05:50 91 18 184/92 (122) 97 Room Air 07/17/17 05:32 18 07/17/17 05:32 97 Room Air 07/17/17 04:10 97.5 100 18 148/86 (106) 97 Physical Exam GENERAL: This is a well-nourished, well-developed patient, in no apparent distress. Patient speaks in clear complete sentences. Patient is pleasant. HEENT: Head is atraumatic and normocephalic. Neck is supple without lymphadenopathy and trachea is midline. No JVD or carotid bruits. CARDIOVASCULAR: Regular rate and rhythm without murmurs, gallops, or rubs. RESPIRATORY: Clear to auscultation. Breath sounds equal bilaterally. No wheezes , rales, or rhonchi. Chest wall is nontender. No use of accessory muscles. GASTROINTESTINAL: Abdomen is nontender, nondistended. Abdomen soft. No obvious pulsatile mass or bruit. No CVA tenderness. Strong femoral pulses bilaterally. Normal bowel sounds in all quadrants. MUSCULOSKELETAL: Patient is moving upper and lower extremities freely. No calf tenderness or edema, no Homans sign. Strong pulses in upper and lower extremities. NEUROLOGICAL: Patient is alert and oriented. Cranial nerves 2-12 are grossly intact. No focal deficits and speech is clear. SKIN: No rash and turgor is normal. Laboratory Laboratory Tests Test 07/17/17 05:30 07/17/17 08:30 White Blood Count 13.2 Red Blood Count 5.45 Hemoglobin 15.3 Hematocrit 45.0 Mean Corpuscular Volume 82.6 Mean Corpuscular Hemoglobin 28.0 Mean Corpuscular Hemoglobin Concent 33.9 Red Cell Distribution Width 15.8 Platelet Count 431 Mean Platelet Volume 7.0 Neutrophils (%) (Auto) 70.6 Lymphocytes (%) (Auto) 19.3 Monocytes (%) (Auto) 9.0 Eosinophils (%) (Auto) 0.7 Basophils (%) (Auto) 0.4 Neutrophils # (Auto) 9.3 Lymphocytes # (Auto) 2.5 Monocytes # (Auto) 1.2 Eosinophils # (Auto) 0.1 Basophils # (Auto) 0.1 CBC Comment DIFF FINAL Differential Comment Prothrombin Time 11.6 Prothromb Time International Ratio 1.1 Activated Partial Thromboplast Time 26.1 Blood Urea Nitrogen 8 Creatinine 0.88 Random Glucose 155 Total Protein 8.6 Albumin 4.0 Calcium Level 9.6 Magnesium Level 1.6 Alkaline Phosphatase 55 Aspartate Amino Transf (AST/SGOT) 19 Alanine Aminotransferase (ALT/SGPT) 21 Total Bilirubin 0.6 Sodium Level 140 Potassium Level 3.3 Chloride Level 106 Carbon Dioxide Level 23.7 Anion Gap 10 Estimat Glomerular Filtration Rate 63 Total Creatine Kinase 82 Troponin I LESS THAN 0.02 B-Type Natriuretic Peptide 43 Lipase 134 Result Diagram: 07/17/1752907/17/17529 Imaging Last 48 hours Impressions Chest X-Ray 07/17/17514 Signed Impressions: Service Date/Time: Monday, July 17, 2017 05:53 - CONCLUSION: No evidence of acute cardiopulmonary disease. Kevin Savage MD Course Initial EKG is sinus rhythm without significant ST segment depressions or elevations. Caprini VTE Risk Assessment Caprini VTE Risk Assessment: Mod/High Risk (score >= 2) Caprini Risk Assessment Model Point Value = 1 Point Value = 2 Point Value = 3 Point Value = 5 Age 41-60 Minor surgery BMI > 25 kg/m2 Swollen legs Varicose veins or History of unexplained or recurrent spontaneous Oral contraceptives or hormone replacement Sepsis (< 1 month) Serious lung disease, including pneumonia (< 1 month) Abnormal pulmonary function Acute myocardial infarction Congestive heart failure (< 1 month) History of inflammatory bowel disease Medical patient at bed rest Age 61-74 Arthroscopic surgery Major open surgery (> 45 min) Laparoscopic surgery (> 45 min) Malignancy Confined to bed (> 72 hours) Immobilizing plaster cast Central venous access Age >= 75 History of VTE Family history of VTE Factor V Leiden Prothrombin 34134H Lupus anticoagulant Anticardiolipin antibodies Elevated serum homocysteine Heparin-induced thrombocytopenia Other congenital or acquired thrombophilia Stroke (< 1 month) Elective arthroplasty Hip, pelvis, or leg fracture Acute spinal cord injury (< 1 month) Prophylaxis Regimen Total Risk Factor Score Risk Level Prophylaxis Regimen 0-1 Low Early ambulation 2 Moderate Order ONE of the following: *Sequential Compression Device (SCD) *Heparin 5000 units SQ BID 3-4 Higher Order ONE of the following medications: *Heparin 5000 units SQ TID *Enoxaparin/Lovenox 40 mg SQ daily (WT < 150 kg, CrCl > 30 mL/min) *Enoxaparin/Lovenox 30 mg SQ daily (WT < 150 kg, CrCl > 10-29 mL/min) *Enoxaparin/Lovenox 30 mg SQ BID (WT < 150 kg, CrCl > 30 mL/min) AND/OR *Sequential Compression Device (SCD) 5 or more Highest Order ONE of the following medications: *Heparin 5000 units SQ TID (Preferred with Epidurals) *Enoxaparin/Lovenox 40 mg SQ daily (WT < 150 kg, CrCl > 30 mL/min) *Enoxaparin/Lovenox 30 mg SQ daily (WT < 150 kg, CrCl > 10-29 mL/min) *Enoxaparin/Lovenox 30 mg SQ BID (WT < 150 kg, CrCl > 30 mL/min) AND *Sequential Compression Device (SCD) Assessment and Plan Assessment and Plan * Palpitation: Patient will remain on the monitor. As of moment there have been no arrhythmias. Patient denies chest discomfort. States she feels better after getting Ativan and Percocet in the ED. She has been seen by Dr. Humphreys of cardiology in the chest pain center. The patient does not want to have a stress test at this time. I discussed this patient with Dr. aldrich. Patient will be discharged home if she has normal troponins 3 with instructions to keep her appointment with Dr. aldrich on which is in 2 more days. Return to ED for interval issues. * Chronic pain: Patient be given pain medication while in the chest pain center. Take medication as instructed by physician after discharge. * Hypertension: Continue medication. * Hyperlipidemia: Continue medication. * Diabetes: Patient will be on sliding scale insulin coverage. Diabetic diet. Resume medication at discharge. Patient is stable at this time. She is agreeable to this plan. Humberto Samson Jul 17, 2017 09:29
[2017-07-17] MEDS ORDERED: POTASSIUM CHLORIDE 20 MEQ CONTROLLED RELEASE TAB PO ONE (10:15)
[2017-07-17] MEDS: oxyCODONE/ACETAMINOPHEN 10 MG/325 MG TAB PO PRN ×2 (11:06→16:34)
[2017-07-17] MEDS ORDERED: INSULIN ASPART SUPPLEMENTAL SCALE SQ SCH (12:00)
[2017-07-17 12:53] LABS: TROPONIN I LESS THAN 0.02 NG/ML (0.02-0.05)
--- NOTE | 2017-07-17 13:14 | HHI.DCPOC ---
Discharge Care Plan Diagnosis: (1) Chest pain (2) HTN (hypertension) (3) DM (diabetes mellitus) (4) Hyperlipidemia (5) Hypokalemia Goals to Promote Your Health * To prevent worsening of your condition and complications * To maintain your health at the optimal level Directions to Meet Your Goals Take your medications as prescribed Follow your dietary instruction Follow activity as directed Keep your appointments as scheduled Take your immunizations and boosters as scheduled If your symptoms worsen call your PCP, if no PCP go to Urgent Care Center or Emergency Room Smoking is Dangerous to Your Health. Avoid second hand smoke Call the 24-hour hour crisis hotline for domestic abuse at Humberto Samson Jul 17, 2017 13:14
--- NOTE | 2017-07-17 17:35 | EKG ---
Date Performed: 07/17/2017 Time Performed: 08:38:57 PTAGE: 71 years EKG: Sinus rhythm NORMAL ECG Since PREVIOUS TRACING , no significant change noted PREVIOUS TRACIN07/17/2017 05.15 DOCTOR: Rachel Humphreys Interpretating Date/Time 07/17/2017 17:34:32
--- NOTE | 2017-07-17 17:38 | EKG ---
Date Performed: 07/17/2017 Time Performed: 11:43:39 PTAGE: 71 years EKG: Sinus rhythm NORMAL ECG Since PREVIOUS TRACING , no significant change noted PREVIOUS TRACIN07/17/2017 08.38 DOCTOR: Rachel Humphreys Interpretating Date/Time 07/17/2017 17:37:28
--- NOTE | 2017-07-17 17:48 | EKG ---
Date Performed: 07/17/2017 Time Performed: 05:15:42 PTAGE: 71 years EKG: Sinus rhythm MINIMAL ST DEPRESSION BORDERLINE ECG Artifact Since previous tracing, no significant change noted NO PREVIOUS TRACING DOCTOR: Rachel Humphreys Interpretating Date/Time 07/17/2017 17:46:10
[2017-07-17] MEDS ORDERED: PRAVASTATIN SOD 40 MG TAB PO SCH (21:00)
[2017-07-18] MEDS ORDERED: ASPIRIN 325 MG TAB PO SCH (09:00)
== END 2017-07-17 18:47 | disposition home or self-care (01) ==
LOC: NEPC 04:06 → NEDA 06:37 → NEPFCDU 10:23
PROVIDERS: ADMIT Internal Medicine Cardiovascular Disease; ATTEND Internal Medicine Cardiovascular Disease
DX: R00.2 Palpitations (principal); R07.89 Other chest pain; E87.6 Hypokalemia; R06.02 Shortness of breath; R19.7 Diarrhea, unspecified; R11.0 Nausea; R61 Generalized hyperhidrosis; M54.5 Low back pain; G89.29 Other chronic pain; I10 Essential (primary) hypertension; E78.00 Pure hypercholesterolemia, unspecified; E11.9 Type 2 diabetes mellitus without complications; I25.10 Atherosclerotic heart disease of native coronary artery without angina pectoris; M79.7 Fibromyalgia; G47.00 Insomnia, unspecified; I25.2 Old myocardial infarction; K21.9 Gastro-esophageal reflux disease without esophagitis; G47.30 Sleep apnea, unspecified; M06.9 Rheumatoid arthritis, unspecified; G30.9 Alzheimer's disease, unspecified; F02.80 Dementia in other diseases classified elsewhere, unspecified severity, without behavioral disturbance, psychotic disturbance, mood disturbance, and anxiety; F41.9 Anxiety disorder, unspecified; Z86.73 Personal history of transient ischemic attack (TIA), and cerebral infarction without residual deficits; Z79.899 Other long term (current) drug therapy; Z79.82 Long term (current) use of aspirin; Z86.711 Personal history of pulmonary embolism; Z79.891 Long term (current) use of opiate analgesic
CPT/HCPCS: 71045; 80053; 82550; 82948; 83690; 83735; 83880; 84484; 85025; 85610; 85730; 93005; 96374; 96375; 99285; G0378; J2060; J2405; J7040

== ENCOUNTER 2017-08-18 13:35 | Inpatient (IN) | END 2017-08-22 18:34 | disposition home health service (06) | DRG 208 | DX: J96.01 Acute respiratory failure with hypoxia (principal); G93.41 Metabolic encephalopathy; J18.9 Pneumonia, unspecified organism; E11.42 Type 2 diabetes mellitus with diabetic polyneuropathy; M62.82 Rhabdomyolysis; N18.3 Chronic kidney disease, stage 3 (moderate); E11.22 Type 2 diabetes mellitus with diabetic chronic kidney disease; E72.20 Disorder of urea cycle metabolism, unspecified; R00.1 Bradycardia, unspecified; G30.9 Alzheimer's disease, unspecified; F02.80 Dementia in other diseases classified elsewhere, unspecified severity, without behavioral disturbance, psychotic disturbance, mood disturbance, and anxiety; R40.2432 Glasgow coma scale score 3-8, at arrival to emergency department; Z86.73 Personal history of transient ischemic attack (TIA), and cerebral infarction without residual deficits; M06.9 Rheumatoid arthritis, unspecified; I25.2 Old myocardial infarction; I25.10 Atherosclerotic heart disease of native coronary artery without angina pectoris; M79.7 Fibromyalgia; K21.9 Gastro-esophageal reflux disease without esophagitis; I12.9 Hypertensive chronic kidney disease with stage 1 through stage 4 chronic kidney disease, or unspecified chronic kidney disease; G47.00 Insomnia, unspecified; M19.90 Unspecified osteoarthritis, unspecified site; E78.5 Hyperlipidemia, unspecified; G47.33 Obstructive sleep apnea (adult) (pediatric); J96.02 Acute respiratory failure with hypercapnia; E66.9 Obesity, unspecified; E87.6 Hypokalemia; R60.0 Localized edema; G31.9 Degenerative disease of nervous system, unspecified; J45.909 Unspecified asthma, uncomplicated; E88.09 Other disorders of plasma-protein metabolism, not elsewhere classified; E83.39 Other disorders of phosphorus metabolism; N28.1 Cyst of kidney, acquired; D63.1 Anemia in chronic kidney disease; F13.90 Sedative, hypnotic, or anxiolytic use, unspecified, uncomplicated; F32.9 Major depressive disorder, single episode, unspecified; F40.240 Claustrophobia; W06.XXXA Fall from bed, initial encounter; Z68.32 Body mass index [BMI] 32.0-32.9, adult; Z79.891 Long term (current) use of opiate analgesic; Z86.711 Personal history of pulmonary embolism; Z96.653 Presence of artificial knee joint, bilateral ==

== ENCOUNTER 2017-09-18 15:01 | Emergency (ER) | payer MEDICARE, BC ==
[~2017-09-18] VITALS: Ht 152.4 cm; Wt 86.0 kg
[~2017-09-18 15:01] MED LIST changes: -FENT75DI T-DERMAL; -HYDR-3799 PO; +LORA-392 PO; -LORA2TAB7 PO; +OXYGENDME NAS.CANULA; -PERC5TAB12 PO
[2017-09-18 15:12] VITALS: BP 132/61; PULSE 75; RESP 20; TEMP 97.8; O2SAT 89
[2017-09-18] MEDS ORDERED: SODIUM CHLOR 0.9% 1000 ML INJ 1,000 ML IV ONE (15:17)
[2017-09-18 15:20] VITALS: RESP 20; O2SAT 95
[2017-09-18] MEDS: SODIUM CHLORIDE 0.9% FLUSH 10 ML FLUSH IVF PRN ×2 (15:27→16:39)
[2017-09-18 15:45] VITALS: BP 137/66; PULSE 58; RESP 18; O2SAT 97
[2017-09-18 15:50] LABS: AUTOMATED NEUTROPHIL # 4.9 TH/MM3 (1.8-7.7); BASOPHIL % 0.5 % (0.0-2.0); EOSINOPHIL # 0.3 TH/MM3 (0-0.4); EOSINOPHIL % 3.5 % (0.0-4.0); HEMATOCRIT 37.8 % (35.0-46.0); HEMOGLOBIN 12.3 GM/DL (11.6-15.3); LYMPH % 37.8 % (9.0-44.0); LYMPHOCYTE # 3.8 TH/MM3 (1.0-4.8); MEAN CELL VOLUME 85.6 FL (80.0-100.0); MEAN CORPUSCULAR HEMOGLOBIN 27.9 PG (27.0-34.0); MEAN CORPUSCULAR HGB CONC 32.5 % (32.0-36.0); MONO % 9.3 % (0.0-8.0); MONOCYTE # 0.9 TH/MM3 (0-0.9); NEUT % 48.9 % (16.0-70.0); PLATELET COUNT 368 TH/MM3 (150-450); RED BLOOD COUNT 4.42 MIL/MM3 (4.00-5.30); RED CELL DISTRIBUTION WIDTH 16.1 % (11.6-17.2); WHITE BLOOD COUNT 10.1 TH/MM3 (4.0-11.0)
--- NOTE | 2017-09-18 15:58 | RADRPT ---
EXAM DATE: 09/18/2017 3:42 PM EDT AGE/SEX: 71 years / Female INDICATIONS: Syncope. CLINICAL DATA: This is the patient's initial encounter. Patient reports that signs and symptoms have been present for 1 day and indicates a pain score of 0/10. MEDICAL/SURGICAL HISTORY: None. . loop recorder COMPARISON: [facility] [place], CHEST SINGLE AP, 08/22/2017. . FINDINGS: A single AP view of the chest demonstrates the lungs to be symmetrically aerated without evidence of mass, infiltrate or effusion. The cardiomediastinal contours are unremarkable. Osseous structures a re intact. Incidental note is made of a Loop recorder. CONCLUSION: No acute cardiopulmonary findings. Electronically signed by: Luis Blanchard MD 09/18/2017 3:57 PM EDT
[2017-09-18 15:59] LABS: BACTERIA, URINE OCC /hpf; BILIRUBIN, URINE NEG (NEG); BLOOD, URINE NEG (NEG); GLUCOSE,URINE NEG (NEG); HYALINE CAST, URINE 114 /lpf (RARE); KETONE, URINE NEG (NEG); NITRITE,URINE NEG (NEG); SQUAMOUS EPITHELIAL CELL URINE 4 /hpf (0-5); URINE COLOR Amber (YELLW/STRAW); URINE LEUKOCYTE ESTERASE TRACE (NEG)
[2017-09-18 16:02] LABS: INTERNATIONAL NORMALIZED RATIO 1.1 RATIO; PROTHROMBIN TIME - PATIENT 11.4 SEC (9.8-11.6)
[2017-09-18 16:07] LABS: ALBUMIN 3.2 GM/DL (3.4-5.0); ALT (GPT) 15 U/L (10-53); AST (GOT) 12 U/L (15-37); BICARBONATE 31.8 MEQ/L (21.0-32.0); BLOOD UREA NITROGEN 10 MG/DL (7-18); CALCIUM 8.3 MG/DL (8.5-10.1); CHLORIDE 104 MEQ/L (98-107); CREATININE 1.28 MG/DL (0.50-1.00); GLOMERULAR FILTRATION RATE 41 ML/MIN (>89); GLUCOSE,RANDOM 115 MG/DL (74-106); SODIUM (NA) 144 MEQ/L (136-145)
[2017-09-18 16:10] LABS: ALKALINE PHOSPHATASE 49 U/L (45-117); TOTAL BILIRUBIN ADULT 0.2 MG/DL (0.2-1.0); TOTAL PROTEIN 7.2 GM/DL (6.4-8.2)
[2017-09-18 16:13] LABS: ACETAMINOPHEN LESS THAN 2.0 MCG/ML (10.0-30.0)
[2017-09-18] MEDS ORDERED: cefTRIAXone INJ 1,000 MG in SODIUM CHLORIDE 0.9% INJ 100 ML IV ONE (16:15)
[2017-09-18 16:41] VITALS: BP 124/65; PULSE 63; RESP 20; TEMP 97.8; O2SAT 95
[2017-09-18] MEDS ORDERED: POTASSIUM CHLORIDE 10 MEQ CONTROLLED RELEASE TAB PO ONE (17:00)
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
[2017-09-18 18:00] VITALS: BP 119/66; PULSE 56; RESP 20; TEMP 97.9; O2SAT 97
[2017-09-18] MEDS ORDERED: CEPH-460 PO (19:45)
[2017-09-18 23:00] VITALS: BP_SYST 114; BP_SYST 117; BP_DIAS 60; BP_DIAS 68; PULSE 55; PULSE 59; RESP 20; O2SAT 96
[2017-09-19 03:00] VITALS: BP 121/65; PULSE 57; RESP 20; O2SAT 96
--- NOTE | 2017-09-19 07:36 | EKG ---
Date Performed: 09/18/2017 Time Performed: 15:24:09 PTAGE: 71 years EKG: Sinus rhythm NORMAL ECG PREVIOUS TRACING : 08/18/2017 14.30 DOCTOR: Anival Mccauley Interpretating Date/Time 09/19/2017 07:32:13
[2017-09-19] MEDS ORDERED: CEPHALEXIN MONOHYDRATE 500 MG CAP PO ONE (08:00)
[2017-09-19] MEDS ORDERED: ACETAMINOPHEN 325 MG TAB PO ONE (09:15)
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
--- NOTE | 2017-09-19 11:26 | PD ---
Physical Exam Date Seen by Provider: Sep 19, 2017 Time Seen by Provider: 11:23 Data Data Last Documented VS Vital Signs Date Time Temp Pulse Resp B/P (MAP) Pulse Ox O2 Delivery O2 Flow Rate FiO2 09/19/17 03:00 57 20 121/65 (83) 96 Nasal Cannula 2.00 09/18/17 18:00 97.9 Orders Orders Electrocardiogram (09/18/17 15:17) Complete Blood Count With Diff (09/18/17 15:17) Comprehensive Metabolic Panel (09/18/17 15:17) Prothrombin Time / Inr (Pt) (09/18/17 15:17) Act Partial Throm Time (Ptt) (09/18/17 15:17) Urinalysis - C+S If Indicated (09/18/17 15:17) Chest, Single Ap (09/18/17 15:17) Iv Access Insert/Monitor (09/18/17 15:17) Ecg Monitoring (09/18/17 15:17) Oximetry (09/18/17 15:17) Sodium Chloride 0.9% Flush (Ns Flush) (09/18/17 15:30) Sodium Chlor 0.9% 1000 Ml Inj (Ns 1000 M (09/18/17 15:17) Drug Screen, Random Urine (09/18/17 15:17) Alcohol (Ethanol) (09/18/17 15:17) Salicylates (Aspirin) (09/18/17 15:17) Tylenol (Acetaminophen) (09/18/17 15:17) Psych Screen (09/18/17 15:17) Urine Culture (09/18/17 15:25) Ceftriaxone Inj (Rocephin Inj) (09/18/17 16:15) Potassium Chloride (Kcl) (09/18/17 17:00) Cephalexin (Keflex) (09/19/17 08:00) Diet Diabetic (09/19/17 Breakfast) Acetaminophen (Tylenol) (09/19/17 09:15) Ed Discharge Order (09/19/17 11:26) Labs Laboratory Tests Test 09/18/17 15:25 White Blood Count 10.1 TH/MM3 Red Blood Count 4.42 MIL/MM3 Hemoglobin 12.3 GM/DL Hematocrit 37.8 % Mean Corpuscular Volume 85.6 FL Mean Corpuscular Hemoglobin 27.9 PG Mean Corpuscular Hemoglobin Concent 32.5 % Red Cell Distribution Width 16.1 % Platelet Count 368 TH/MM3 Mean Platelet Volume 7.0 FL Neutrophils (%) (Auto) 48.9 % Lymphocytes (%) (Auto) 37.8 % Monocytes (%) (Auto) 9.3 % Eosinophils (%) (Auto) 3.5 % Basophils (%) (Auto) 0.5 % Neutrophils # (Auto) 4.9 TH/MM3 Lymphocytes # (Auto) 3.8 TH/MM3 Monocytes # (Auto) 0.9 TH/MM3 Eosinophils # (Auto) 0.3 TH/MM3 Basophils # (Auto) 0.0 TH/MM3 CBC Comment DIFF FINAL Differential Comment Prothrombin Time 11.4 SEC Prothromb Time International Ratio 1.1 RATIO Activated Partial Thromboplast Time 25.2 SEC Urine Color Mendy Urine Turbidity CLOUDY Urine pH 5.0 Urine Specific Clark 1.020 Urine Protein NEG mg/dL Urine Glucose (UA) NEG mg/dL Urine Ketones NEG mg/dL Urine Occult Blood NEG Urine Nitrite NEG Urine Bilirubin NEG Urine Urobilinogen 2.0 mg/dL Urine Leukocyte Esterase TRACE Urine RBC 17 /hpf Urine WBC 14 /hpf Urine Squamous Epithelial Cells 4 /hpf Urine Bacteria OCC /hpf Urine Hyaline Casts 114 /lpf Microscopic Urinalysis Comment CULTURE INDICATED Blood Urea Nitrogen 10 MG/DL Creatinine 1.28 MG/DL Random Glucose 115 MG/DL Total Protein 7.2 GM/DL Albumin 3.2 GM/DL Calcium Level 8.3 MG/DL Alkaline Phosphatase 49 U/L Aspartate Amino Transf (AST/SGOT) 12 U/L Alanine Aminotransferase (ALT/SGPT) 15 U/L Total Bilirubin 0.2 MG/DL Sodium Level 144 MEQ/L Potassium Level 3.3 MEQ/L Chloride Level 104 MEQ/L Carbon Dioxide Level 31.8 MEQ/L Anion Gap 8 MEQ/L Estimat Glomerular Filtration Rate 41 ML/MIN Salicylates Level LESS THAN 1.7 MG/DL Urine Opiates Screen POS Acetaminophen Level LESS THAN 2.0 MCG/ML Urine Barbiturates Screen NEG Urine Amphetamines Screen NEG Urine Benzodiazepines Screen POS Urine Cocaine Screen NEG Urine Cannabinoids Screen POS Ethyl Alcohol Level LESS THAN 3 MG/DL [facility] Supervised Visit with MARTIN: No Narrative Course 71-year-old female brought to the ED under Becerra act with concern for suicidal ideation and possible suicidal gesture. She was evaluated by CRISTHIAN Armijo , diagnosed with a UTI and medically cleared for psychiatric evaluation. She was then evaluated by [employer]. Becerra act was lifted. Patient is not psychotic or manic. No suicidal or homicidal ideation. No evidence of unstable mental illness by licensed psychologist director evaluation. Plan is for patient to follow-up with outpatient resources. She is stable and discharged home. Diagnosis Primary Impression: Medical clearance for psychiatric admission Additional Impressions: Chronic, continuous use of opioids Chronic prescription benzodiazepine use UTI (urinary tract infection) Qualified Codes: N39.0 - Urinary tract infection, site not specified; R31.9 - Hematuria, unspecified Referrals: Primary Care Physician Additional Instruction: Rest, hydrate. Begin antibiotics today and take them as prescribed until every pill is gone. Follow-up with your primary care provider. Return to the ED for any urgent or emergent medical condition. Med/Other Pt SpecificInfo: Prescription(s) given Scripts Cephalexin (Keflex) 500 Mg Cap 500 MG PO Q12H for Infection for 7 Days, #14 CAP 0 Refills Prov: Yoon Wilks 09/18/17 Disposition: 01 DISCHARGE HOME Condition: Stable Tanisha Freeman Sep 19, 2017 11:26
== END 2017-09-19 12:23 | disposition home or self-care (01) ==
LOC: NEPE 15:01 → NEDAMB 09-19 12:23
DX: N39.0 Urinary tract infection, site not specified (principal); F11.10 Opioid abuse, uncomplicated; F13.90 Sedative, hypnotic, or anxiolytic use, unspecified, uncomplicated; F12.90 Cannabis use, unspecified, uncomplicated; M54.9 Dorsalgia, unspecified; G89.29 Other chronic pain; E11.9 Type 2 diabetes mellitus without complications; G47.30 Sleep apnea, unspecified; G30.9 Alzheimer's disease, unspecified; F02.80 Dementia in other diseases classified elsewhere, unspecified severity, without behavioral disturbance, psychotic disturbance, mood disturbance, and anxiety; D64.9 Anemia, unspecified; M19.90 Unspecified osteoarthritis, unspecified site; F41.9 Anxiety disorder, unspecified; E78.00 Pure hypercholesterolemia, unspecified; I25.10 Atherosclerotic heart disease of native coronary artery without angina pectoris; M79.7 Fibromyalgia; K21.9 Gastro-esophageal reflux disease without esophagitis; I10 Essential (primary) hypertension; G47.00 Insomnia, unspecified; I25.2 Old myocardial infarction; Z86.73 Personal history of transient ischemic attack (TIA), and cerebral infarction without residual deficits; Z79.82 Long term (current) use of aspirin; Z79.4 Long term (current) use of insulin; Z79.899 Other long term (current) drug therapy
CPT/HCPCS: 71045; 80053; 80307; 81001; 85025; 85610; 85730; 87086; 93005; 96361; 96365; 99285; J0696; J7030

== ENCOUNTER 2018-03-08 13:29 | Inpatient (IN) ==
[2018-03-08] MEDS ORDERED: fentaNYL Citrate Inj 100 MCG/2 ML Ampul IV.PUSH ONE ×2 (13:50→15:26)
--- NOTE | 2018-03-08 14:09 | ED ---
HPI General Chief Complaint: Fall Stated Complaint: Fall Time Seen by Provider: 03/08/18 13:48 Source: patient and EMS Mode of arrival: EMS Limitations: no limitations History of Present Illness HPI Narrative: Patient is a 72-year-old female, past medical history significant for diabetes, hypertension, previous CVA, not on blood thinners that she is aware of, who presents with complaint of back pain after fall. She states that her significant other had mopped the floor in the kitchen which she did not realize. She then tried to step onto it and slipped falling onto her back. She did strike her head. She did not try to get up off the floor herself. She is complaining to significant pain to her back. No numbness, weakness of the extremities. MD complaint: Reports fall Onset (ago): minute(s) Fall from: standing Place fall occurred: home Loss of consciousness: none Prolonged down time: no Symptoms prior to fall: Reports none Context: Reports tripped/slipped Location of injury: Reports head and back Severity: mild Quality: Reports aching Related Data Home Medications Medication Instructions Recorded Confirmed albuterol sulfate [Ventolin HFA] 2 puff INHALATION Q4-6H PRN 03/08/18 03/08/18 amlodipine 10 mg PO DAILY 03/08/18 03/08/18 buprenorphine-naloxone [Suboxone] 1.5 film BUCCAL Q24H 03/08/18 03/08/18 carvedilol 3.125 mg PO BID 03/08/18 03/08/18 clonidine HCl 0.1 mg PO TID 03/08/18 03/08/18 fenofibrate nanocrystallized 145 mg PO HS 03/08/18 03/08/18 fluoxetine 20 mg PO DAILY 03/08/18 03/08/18 furosemide 40 mg PO BID 03/08/18 03/08/18 gabapentin 300 mg PO TID 03/08/18 03/08/18 hydralazine 25 mg PO TID 03/08/18 03/08/18 insulin detemir U-100 [Levemir 20 unit SUBCUT QPM 03/08/18 03/08/18 FlexTouch U-100 Insuln] isosorbide mononitrate 30 mg PO DAILY 03/08/18 03/08/18 lorazepam 2 mg PO TID 03/08/18 03/08/18 pantoprazole 40 mg PO DAILY 03/08/18 03/08/18 pioglitazone 30 mg PO DAILY 03/08/18 03/08/18 pravastatin 40 mg PO DAILY 03/08/18 03/08/18 ranitidine HCl 150 mg PO TID 03/08/18 03/08/18 temazepam 30 mg PO HS 03/08/18 03/08/18 Allergies Allergy/AdvReac Type Severity Reaction Status Date / Time No Known Allergies Allergy Verified 03/08/18 13:51 Review of Systems ROS: all other systems reviewed are negative [facility] Medical History Medical History Age related osteoporosis (Acute) Diabetes (Acute) High cholesterol (Acute) Hypertension (Acute) Sleep apnea (Acute) Stroke (Acute) Surgical History Surgical History H/O total knee replacement (Acute) Social History Social History Substance History: No History of Abuse Smoking Status: Never smoker How Often Do You Have a Drink Containing Alcohol: Never Recent Travel in [facility] within the Last 8 Weeks: No Recent Out of Country Travel within the Last 8 Weeks: No Immunization History Tetanus Immunization: Unsure Exam Narrative Exam Narrative: GENERAL: Well-appearing female in no acute distress SKIN: Focused skin assessment warm/dry. No rashes. HEAD: Atraumatic. Normocephalic. EYES: Pupils equal and round. No scleral icterus. No injection or drainage. ENT: No nasal bleeding or discharge. Mucous membranes pink and moist. NECK: Trachea midline. No JVD. In c-collar. CARDIOVASCULAR: Regular rate and rhythm. No murmur appreciated. Intact and equal peripheral pulses. RESPIRATORY: No accessory muscle use. Clear to auscultation. Breath sounds equal bilaterally. GASTROINTESTINAL: Abdomen soft, non-tender, nondistended. Hepatic and splenic margins not palpable. MUSCULOSKELETAL: No obvious deformities. No clubbing. No cyanosis. No edema. L spine tenderness. Patient was not sure if she had T-spine tenderness or not. No C-spine tenderness. NEUROLOGICAL: Awake and alert. No obvious cranial nerve deficits. Motor grossly within normal limits. Normal sensation. Normal speech. PSYCHIATRIC: Appropriate mood and affect; insight and judgment normal. Course Initial Documented Vital Signs Temperature 98.5 F 03/08/18 13:48 Pulse Rate 55 L 12/07/18 13:48 Respiratory Rate 18 03/08/18 13:48 Blood Pressure 121/57 L 03/08/18 13:48 Pulse Oximetry 90 L 03/08/18 13:48 Last Documented Vital Signs Temperature 98.5 F 03/08/18 13:48 Pulse Rate 53 L 03/08/18 15:33 Respiratory Rate 20 03/08/18 15:33 Blood Pressure 157/67 H 03/08/18 15:33 Pulse Oximetry 96 03/08/18 15:33 Medical Decision Making MDM Narrative Medical decision making narrative: Patient is a 72-year-old female who presents with complaint of back pain after a mechanical fall at her house today. Imaging reveals progression of old compression fractures with an additional new compression fracture of L2. I spoke with Dr. Camacho, neurosurgeon on-call who recommended a TLSO and pain control. Patient has required multiple doses of pain medication in the emergency department and yet still has uncontrolled pain. Admission for pain control has been requested. Medical Screen Exam Complete: Yes Emergency Medical Condition: Yes Differential Diagnosis Differential Diagnosis: Differential diagnosis includes but is not limited to closed head injury, intracranial hemorrhage, fracture. Medical Records Medical records reviewed: Yes I reviewed the patient's medical records. Lab Data Lab results reviewed: Yes I reviewed the patient's lab results. Result diagrams: 03/08/18 14:05 03/08/18 14:05 Lab Results 03/08/18 03/08/18 03/08/18 Range/Units 14:05 14:05 14:05 WBC 8.5 (4.0-11.0) th/mm3 RBC 4.22 (4.00-5.30) mil/mm3 Hgb 12.8 (11.6-15.3) gm/dL Hct 36.8 (35.0-46.0) % MCV 87.3 (80.0-100.0) fL MCH 30.3 (27.0-34.0) pg MCHC 34.7 (32.0-36.0) % RDW 16.8 (11.6-17.2) % Plt Count 289 (150-450) th/mm3 MPV 7.0 (7.0-11.0) fL Neut % (Auto) 58.9 (16.0-70.0) % Lymph % (Auto) 28.5 (9.0-44.0) % Alfalfa % (Auto) 9.5 H (0.0-8.0) % Eos % (Auto) 2.6 (0.0-4.0) % Baso % (Auto) 0.5 (0.0-2.0) % Neut # (Auto) 5.0 (1.8-7.7) th/mm3 Lymph # (Auto) 2.4 (1.0-4.8) th/mm3 Alfalfa # (Auto) 0.8 (0.0-0.9) th/mm3 Eos # (Auto) 0.2 (0.0-0.4) th/mm3 Baso # (Auto) 0.0 (0.0-0.2) th/mm3 WBC Differential . Differential Comment Auto diff final PT 11.9 H (9.8-11.6) sec INR 1.2 Ratio APTT 27.7 (23.4-31.7) sec Sodium 142 (136-145) meq/L Potassium 3.6 (3.5-5.1) meq/L Chloride 101 (98-107) meq/L Carbon Dioxide 36.3 H (21.0-32.0) meq/L Anion Gap 5 (5-15) meq/L BUN 12 (7-18) mg/dL Creatinine 1.09 H (0.50-1.00) mg/dL Estimated GFR 49 L (>89) mL/min Random Glucose 160 H (74-106) mg/dL Calcium 7.7 L (8.5-10.1) mg/dL Imaging Data Attestation: I personally reviewed and interpreted this imaging study as follows : Radiologist's impression: Lumbar Spine CT 03/08/18 13:48 CONCLUSION: 1. Progression of the anterior wedging at T12 and L4. MRI would be of benefit to further evaluate thecal contents. There is no retropulsion of fragments from these compressions. Spinal stenosis from degenerative changes would appear to be significant. Pelvis X-Ray 03/08/18 13:48 CONCLUSION: Degenerative changes, dedicated hip films may be of benefit. Thoracic Spine CT 03/08/18 13:48 CONCLUSION: 1. No acute thoracic spine abnormality is identified. 2. Stable height loss at the superior endplate of T12 representing an old compression fracture. 3. There is a 2.2 cm left adrenal myelolipoma. Cervical Spine CT 03/08/18 13:49 CONCLUSION: 1. No acute fracture or subluxation. 2. Degenerative spondylosis of the lower cervical spine. Head CT 03/08/18 13:49 CONCLUSION: 1. Negative for an acute process . Discharge Plan Discharge Disposition Patient Disposition: ED Admit(ED Internal Use Only) Discharge Condition Condition: Stable Discharge Order Discharge Orders: ED Use Only Admit Order (Routine); Ordered 03/08/18 Ordered By: Mecca Becerra Discharge Details Diagnosis: Closed lumbar vertebral fracture, Intractable back pain Physicians Team ED Provider: Mecca Becerra Primary Care Provider: UNKNOWN, Rxs /Orders / Referrals /Forms Prescriptions: No Action furosemide 40 mg Tablet 40 mg PO BID RF: 0 clonidine HCl 0.1 mg Tablet 0.1 mg PO TID RF: 0 pravastatin 40 mg Tablet 40 mg PO DAILY RF: 0 isosorbide mononitrate 30 mg Tablet Extended Release 24 Hr 30 mg PO DAILY RF: 0 hydralazine 25 mg Tablet 25 mg PO TID RF: 0 carvedilol 3.125 mg Tablet 3.125 mg PO BID RF: 0 temazepam 30 mg Capsule 30 mg PO HS RF: 0 lorazepam 2 mg Tablet 2 mg PO TID RF: 0 amlodipine 10 mg Tablet 10 mg PO DAILY RF: 0 pantoprazole 40 mg Tablet,Delayed Release (Dr/Ec) 40 mg PO DAILY RF: 0 ranitidine HCl 150 mg Tablet 150 mg PO TID RF: 0 gabapentin 300 mg Capsule 300 mg PO TID RF: 0 albuterol sulfate [Ventolin HFA] 90 mcg/actuation Hfa Aerosol Inhaler 2 puff INHALATION Q4-6H PRN (Reason: Shortness Of Breath) RF: 0 pioglitazone 30 mg Tablet 30 mg PO DAILY RF: 0 fluoxetine 20 mg Capsule 20 mg PO DAILY RF: 0 insulin detemir U-100 [Levemir FlexTouch U-100 Insuln] 100 unit/mL (3 mL) Insulin Pen 20 unit SUBCUT QPM RF: 0 fenofibrate nanocrystallized 145 mg Tablet 145 mg PO HS RF: 0 buprenorphine-naloxone [Suboxone] 4-1 mg Film 1.5 film BUCCAL Q24H RF: 0 Discharge Interventions Interventions: Vital Signs Last Done: 03/08/18 15:33 Status ED Status: Pending Admission
[2018-03-08 14:22] LABS: Baso % (Auto) 0.5 % (0.0-2.0); Eos # (Auto) 0.2 th/mm3 (0.0-0.4); Eos % (Auto) 2.6 % (0.0-4.0); Hematocrit 36.8 % (35.0-46.0); Hemoglobin 12.8 gm/dL (11.6-15.3); Lymph # (Auto) 2.4 th/mm3 (1.0-4.8); Lymph % (Auto) 28.5 % (9.0-44.0); Mean Corpuscular HGB Conc 34.7 % (32.0-36.0); Mean Corpuscular Hemoglobin 30.3 pg (27.0-34.0); Mean Corpuscular Volume 87.3 fL (80.0-100.0); Mono # (Auto) 0.8 th/mm3 (0.0-0.9); Mono % (Auto) 9.5 % (0.0-8.0); Neut % (Auto) 58.9 % (16.0-70.0); Platelet Count 289 th/mm3 (150-450); Red Blood Count 4.22 mil/mm3 (4.00-5.30); Red Cell Distribution Width 16.8 % (11.6-17.2); White Blood Count 8.5 th/mm3 (4.0-11.0)
[2018-03-08 14:29] LABS: Activated Partial Thrombo Time 27.7 sec (23.4-31.7); INR 1.2 Ratio; Prothrombin Time 11.9 sec (9.8-11.6)
--- NOTE | 2018-03-08 14:32 | XR ---
EXAM DATE: 03/08/2018 2:19 PM EST AGE/SEX: 72 years / Female INDICATIONS: Pelvic pain, fall. CLINICAL DATA: This is the patient's initial encounter. Patient reports that signs and symptoms have been present for 1 day and indicates a pain score of 8/10. MEDICAL/SURGICAL HISTORY: None. None. COMPARISON: [facility], PELVIS AP ONLY, 02/02/2017. . FINDINGS: There are degenerative changes evident. Bone density is normal alignment anatomic fractures are not a ppreciated. CONCLUSION: Degenerative changes, dedicated hip films may be of benefit. Electronically signed by: Marco Blanchard MD 03/08/2018 2:30 PM EST
[2018-03-08 14:48] LABS: Calcium 7.7 mg/dL (8.5-10.1); Carbon Dioxide 36.3 meq/L (21.0-32.0)
[2018-03-08 14:49] LABS: Potassium 3.6 meq/L (3.5-5.1)
--- NOTE | 2018-03-08 15:09 | CT ---
EXAM DATE: 03/08/2018 2:50 PM EST AGE/SEX: 72 years / Female INDICATIONS: Trauma, fall. Head pain. CLINICAL DATA: This is the patient's initial encounter. Patient reports that signs and symptoms have been present for 1 day and indicates a pain score of 4/10. MEDICAL/SURGICAL HISTORY: Diabetes. Hypertension. Cerebrovascular disease. None. RADIATION DOSE: 66.15 CTDI (mGy) [place] [facility] [place]. . TECHNIQUE: CT of the head without contrast. Using automated exposure control and adjustment of the mA and/or kV according to patient size, radiation dose was kept as low as reasonably achievable to ob tain optimal diagnostic quality images. DICOM format image data is available electronically for revi ew and comparison. FINDINGS: Cerebrum: The ventricles are normal for age. No evidence of midline shift, mass lesion, hemorrhage or acute infarction. No extraaxial fluid collections are seen. Posterior Fossa: The cerebellum and brainstem are intact. The 4th ventricle is midline. The cerebe llopontine angle is unremarkable. Extracranial: The visualized portion of the orbits is intact. Skull: The calvaria is intact. No evidence of skull fracture. Mucus retention cyst right maxillary sinus. CONCLUSION: 1. Negative for an acute process . Electronically signed by: Marco Blanchard MD 03/08/2018 3:07 PM EST
--- NOTE | 2018-03-08 15:11 | CT ---
EXAM DATE: 03/08/2018 2:51 PM EST AGE/SEX: 72 years / Female INDICATIONS: Trauma, fall. Neck pain. CLINICAL DATA: This is the patient's initial encounter. Patient reports that signs and symptoms have been present for 1 day and indicates a pain score of 5/10. MEDICAL/SURGICAL HISTORY: Diabetes. Hypertension. Cerebrovascular disease. None. RADIATION DOSE: 23.11 CTDI (mGy) COMPARISON: [facility] – [place], SPINE LUMBAR LTD (AP & LAT), 02/10/2017. . TECHNIQUE: Contiguous axial images were obtained using helical multirow detector technique. The vol umetric data was post-processed with multiplanar reconstruction in oblique axial, sagittal, and coron al planes. Using automated exposure control and adjustment of the mA and/or kV according to patient s ize, radiation dose was kept as low as reasonably achievable to obtain optimal diagnostic quality zhanna ges. DICOM format image data is available electronically for review and comparison. FINDINGS: OSSEOUS STRUCTURES: Vertebral body heights are maintained. Osseous structures are intact without evid ence for acute bony fracture. Dens is intact. ALIGNMENT: Sagittal alignment is maintained. There is a normal C1-2 relationship. Facets are normal ly aligned. SOFT TISSUES: There is no significant prevertebral soft tissue hematoma. No significant cervical robert nopathy or gross mass. The thyroid appears unremarkable. Visualized lung apices are clear without pn eumothorax. ADDITIONAL FINDINGS: Degenerative spondylosis of the lower cervical spine with disc space narrowing a nd osteophyte formation at C5-6 and C6-7. Bony central canal is patent. Bony neural foramina are pat ent. CONCLUSION: 1. No acute fracture or subluxation. 2. Degenerative spondylosis of the lower cervical spine. Electronically signed by: Matthew Phelan MD 03/08/2018 3:09 PM EST
--- NOTE | 2018-03-08 15:22 | CT ---
EXAM DATE: 03/08/2018 2:54 PM EST AGE/SEX: 72 years / Female INDICATIONS: Trauma, fall. Back pain. CLINICAL DATA: This is the patient's initial encounter. Patient reports that signs and symptoms have been present for 1 day and indicates a pain score of 3/10. MEDICAL/SURGICAL HISTORY: Diabetes. Hypertension. Cerebrovascular disease. None. RADIATION DOSE: 35.86 CTDI (mGy) ; Combined studies [place]PAR[place] [facility] [place] [facility] [place] THORACIC AP/LAT/SW (3VW), 02/10/2017. . TECHNIQUE: Contiguous axial images were acquired using a multirow detector CT scanner without contra st. Multiplanar reconstruction in the sagittal and coronal planes was performed. Using automated exp osure control and adjustment of the mA and/or kV according to patient size, radiation dose was kept a s low as reasonably achievable to obtain optimal diagnostic quality images. DICOM format image data is available electronically for review and comparison. FINDINGS: Vertebrae: There is mild rightward convex curvature. Mild height loss in the superior endplate of T1 2 is stable compared to the prior x-ray. No acute fracture is identified. There is a hemangioma withi n the L1 vertebral body. Endplate osteophytes are present at multiple levels. Alignment: No anterolisthesis or retrolisthesis. T1 - T2: No disc herniation, canal stenosis, or neural foraminal stenosis. T2 - T3: No disc herniation, canal stenosis, or neural foraminal stenosis. T3 - T4: No disc herniation, canal stenosis, or neural foraminal stenosis. T4 - T5: No disc herniation, canal stenosis, or neural foraminal stenosis. T5 - T6: No disc herniation, canal stenosis, or neural foraminal stenosis. T6 - T7: No disc herniation, canal stenosis, or neural foraminal stenosis. T7 - T8: No disc herniation, canal stenosis, or neural foraminal stenosis. T8 - T9: No disc herniation, canal stenosis, or neural foraminal stenosis. T9 - T10: No disc herniation, canal stenosis, or neural foraminal stenosis. T10 - T11: No disc herniation, canal stenosis, or neural foraminal stenosis. T11 - T12: No disc herniation, canal stenosis, or neural foraminal stenosis. T12 - L1: No disc herniation, canal stenosis, or neural foraminal stenosis. Other: There is a fat density lesion arising from the left adrenal gland measuring 2.2 cm. Contains m acroscopic fat. CONCLUSION: 1. No acute thoracic spine abnormality is identified. 2. Stable height loss at the superior endplate of T12 representing an old compression fracture. 3. There is a 2.2 cm left adrenal myelolipoma. Electronically signed by: Kevin Recinos MD 03/08/2018 3:20 PM EST
--- NOTE | 2018-03-08 15:22 | CT ---
EXAM DATE: 03/08/2018 3:00 PM EST AGE/SEX: 72 years / Female INDICATIONS: Trauma, fall today. Back pain. CLINICAL DATA: This is the patient's initial encounter. Patient reports that signs and symptoms have been present for 1 day and indicates a pain score of 5/10. MEDICAL/SURGICAL HISTORY: Diabetes. Hypertension. Cerebrovascular disease. None. RADIATION DOSE: 35.86 CTDI (mGy) COMPARISON: No prior exams available for comparison. TECHNIQUE: Contiguous axial images were acquired with a multirow detector CT scanner without contras t. Multiplanar reconstructions in the sagittal and coronal plane were also performed. Using automate d exposure control and adjustment of the mA and/or kV according to patient size, radiation dose was k ept as low as reasonably achievable to obtain optimal diagnostic quality images. DICOM format image data is available electronically for review and comparison. FINDINGS: Vertebrae: There is anterior wedging of T12, L2 and L4. Findings have progressed at T12 and L4. Didier ngioma present in the L1 vertebral body Alignment: Normal. No subluxation. T12-L1: Mild disc bulging present. Neural foramen are adequate. Mild degenerative changes in the fac ets. L1-L2: Mild disc bulging at L1-2 causing some flattening the anterior thecal space. Moderate facet d isease is evident. There is no thecal sac compromise. L2-L3: Moderate disc bulging is present with ligament hypertrophy and degenerative changes of facets and radiographic significant spinal stenosis. L3-L4: Generalized bulging is present with ligament hypertrophy and degenerative changes of facets w ith moderate spinal stenosis. L4-L5: Mild disc bulging is present. Moderate degenerative changes are present facets and ligament h ypertrophy. Spinal stenosis is moderate L5-S1: Disc bulging is evident with bilateral neural foraminal encroachment worse on the right than the left . Moderate degenerative changes are present facets. CONCLUSION: 1. Progression of the anterior wedging at T12 and L4. MRI would be of benefit to further evaluate th ecal contents. There is no retropulsion of fragments from these compressions. Spinal stenosis from de generative changes would appear to be significant. Electronically signed by: Marco Blanchard MD 03/08/2018 3:20 PM EST
[2018-03-08] MEDS ORDERED: Morphine Inj 4 MG, Morphine Inj 2 MG IV.PUSH ONE ×2 (15:57)
[2018-03-08] MEDS ORDERED: Orphenadrine Inj 60 MG/2 ML Ampul IM ONE (16:52)
[2018-03-08] MEDS ORDERED: Lidocaine 5% Patch T-DERMAL ONE (16:52)
[2018-03-08] MEDS ORDERED: Bisacodyl 10 MG Supp RECTAL PRN (17:21)
[2018-03-08] MEDS ORDERED: Acetaminophen 325 MG Tablet PO PRN (17:21)
--- NOTE | 2018-03-08 17:53 | P.HPIM ---
History of Present Illness Primary Care Physician: UNKNOWN History of Present Illness: 72-yo f with h/o DM type2,HTN, previous CVA, who presented to the ER after fall. Patient was in the kitchen sticking breakfast dishes when she slid on a recently cleaned/polished floor that she had not noticed, and fell backwards hitting her head and back. She did not lose consciousness. She denies dizziness, lightheadedness, or palpitations prior to falling.She had no visual symptoms, abnormal movements or diaphoresis. No chest pain or shortness of breath. No change in bowel or micturition habits. Patient usually ambulates with a cane,and has a walker that she rarely uses. ROS was negative except as stated in above. On presentation to ER,patient had stable vitals, labs were at baseline, CT head, C-spine and T-spine did not reveal any acute finding. CT L spine-Progression of the anterior wedging at T12 and L4. Patient received pain control meds but pain remained intractable. ER physician reports d/w neurosurgeon who recommended to admit for pain control and TLSO brace, PT/OT. Inpatient Certification Inpatient Certification: I certify that the inpatient services were ordered in accordance with Medicare regulations governing the order. This includes certification that hospital inpatient services are reasonable and necessary and in the case of services not specified as inpatient-only under 42 CFR 419.22(n), that they are appropriately provided as inpatient services in accordance to with the 2-midnight benchmark under 43 CFR 412.3(e) Review of Systems Review of Systems: all other systems reviewed are negative [facility]LY [facility] Medical History Medical History Age related osteoporosis (Acute) Diabetes (Acute) High cholesterol (Acute) Hypertension (Acute) Sleep apnea (Acute) Stroke (Acute) Surgical History Surgical History H/O total knee replacement (Acute) Social History Social History Substance History: No History of Abuse Smoking Status: Never smoker How Often Do You Have a Drink Containing Alcohol: Never Recent Travel in [facility] within the Last 8 Weeks: No Recent Out of Country Travel within the Last 8 Weeks: No Immunization History Tetanus Immunization: Unsure Medications and Allergies Allergies Allergy/AdvReac Type Severity Reaction Status Date / Time No Known Allergies Allergy Verified 03/08/18 13:51 Home Medications Medication Instructions Recorded Confirmed Type albuterol sulfate [Ventolin HFA] 2 puff INHALATION Q4-6H PRN 03/08/18 03/08/18 History amlodipine 10 mg PO DAILY 03/08/18 03/08/18 History buprenorphine-naloxone [Suboxone] 0.5 film SUBLINGUAL HS 03/08/18 03/08/18 History buprenorphine-naloxone [Suboxone] 1 film BUCCAL DAILY 03/08/18 03/08/18 History carvedilol 3.125 mg PO BID 03/08/18 03/08/18 History clonidine HCl 0.1 mg PO TID 03/08/18 03/08/18 History fenofibrate nanocrystallized 145 mg PO HS 03/08/18 03/08/18 History fluoxetine 20 mg PO DAILY 03/08/18 03/08/18 History furosemide 40 mg PO BID 03/08/18 03/08/18 History gabapentin 300 mg PO TID 03/08/18 03/08/18 History hydralazine 25 mg PO TID 03/08/18 03/08/18 History insulin detemir U-100 [Levemir 20 unit SUBCUT QPM 03/08/18 03/08/18 History FlexTouch U-100 Insuln] isosorbide mononitrate 30 mg PO DAILY 03/08/18 03/08/18 History lorazepam 2 mg PO TID 03/08/18 03/08/18 History pantoprazole 40 mg PO DAILY 03/08/18 03/08/18 History pioglitazone 30 mg PO DAILY 03/08/18 03/08/18 History pravastatin 40 mg PO DAILY 03/08/18 03/08/18 History ranitidine HCl 150 mg PO TID 03/08/18 03/08/18 History temazepam 30 mg PO HS 03/08/18 03/08/18 History Active Medications: Active Medications Acetaminophen (Tylenol) 650 mg PO Q4H PRN PRN Reason: Temp > 100.4 Bisacodyl (Dulcolax Supp) 10 mg RECTAL DAILY PRN PRN Reason: SEVERE CONSITIPATION Lactulose (Lactulose Liq) 30 ml PO DAILY PRN PRN Reason: SEVERE CONSITIPATION Ondansetron HCl (Zofran Inj) 4 mg IV.PUSH Q6H PRN PRN Reason: NAUSEA OR VOMITING Patch Removal (Remove Old Patch) 1 each T-DERMAL HS CLARA Senna/Docusate Sodium (Sofi-Colace) 1 tab PO BID CLARA Sennosides (Senokot) 17.2 mg PO Q12H PRN PRN Reason: Moderate Constipation Sodium Chloride (Ns Flush) 2 ml IV.FLUSH BID CLARA Sodium Chloride (Ns Flush) 2 ml IV.FLUSH PRN PRN PRN Reason: FLUSH AFTER USING IV ACCESS Physical Exam Vital signs: Last Vital Signs Temp 98.5 F 03/08/18 13:48 Pulse 69 03/08/18 17:31 Resp 20 03/08/18 17:31 BP 159/69 H 03/08/18 17:31 Pulse Ox 96 03/08/18 17:31 Intake & Output 03/06/18 03/07/18 03/08/18 03/09/18 06:59 06:59 06:59 06:59 Weight 81.647 kg Results Labs CBC & Chem 7: 03/08/18 14:05 03/08/18 14:05 Imaging Impressions Lumbar Spine CT 03/08/18 13:48 CONCLUSION: 1. Progression of the anterior wedging at T12 and L4. MRI would be of benefit to further evaluate thecal contents. There is no retropulsion of fragments from these compressions. Spinal stenosis from degenerative changes would appear to be significant. Pelvis X-Ray 03/08/18 13:48 CONCLUSION: Degenerative changes, dedicated hip films may be of benefit. Thoracic Spine CT 03/08/18 13:48 CONCLUSION: 1. No acute thoracic spine abnormality is identified. 2. Stable height loss at the superior endplate of T12 representing an old compression fracture. 3. There is a 2.2 cm left adrenal myelolipoma. Cervical Spine CT 03/08/18 13:49 CONCLUSION: 1. No acute fracture or subluxation. 2. Degenerative spondylosis of the lower cervical spine. Head CT 03/08/18 13:49 CONCLUSION: 1. Negative for an acute process . Caprini VTE Risk Assessment Caprini VTE Risk Assessment: Moderate/High Risk (score >= 2) Caprini Risk Assessment Model: Point Value = 1 Point Value = 2 Point Value = 3 Point Value = 5 Age 41-60 Minor surgery BMI > 25 kg/m2 Swollen legs Varicose veins or History of unexplained or recurrent spontaneous Oral contraceptives or hormone replacement Sepsis (< 1 month) Serious lung disease, including pneumonia (< 1 month) Abnormal pulmonary function Acute myocardial infarction Congestive heart failure (< 1 month) History of inflammatory bowel disease Medical patient at bed rest Age 61-74 Arthroscopic surgery Major open surgery (> 45 min) Laparoscopic surgery (> 45 min) Malignancy Confined to bed (> 72 hours) Immobilizing plaster cast Central venous access Age >= 75 History of VTE Family history of VTE Factor V Leiden Prothrombin [id number] Lupus anticoagulant Anticardiolipin antibodies Elevated serum homocysteine Heparin-induced thrombocytopenia Other congenital or acquired thrombophilia Stroke (< 1 month) Elective arthroplasty Hip, pelvis, or leg fracture Acute spinal cord injury (< 1 month) Prophylaxis Regimen: Total Risk Factor Score Risk Level Prophylaxis Regimen 0-1 Low Early ambulation 2 Moderate Order ONE of the following: *Sequential Compression Device (SCD) *Heparin 5000 units SQ BID 3-4 Higher Order ONE of the following medications: *Heparin 5000 units SQ TID *Enoxaparin/Lovenox 40 mg SQ daily (WT < 150 kg, CrCl > 30 mL/min) *Enoxaparin/Lovenox 30 mg SQ daily (WT < 150 kg, CrCl > 10-29 mL/min) *Enoxaparin/Lovenox 30 mg SQ BID (WT < 150 kg, CrCl > 30 mL/min) AND/OR *Sequential Compression Device (SCD) 5 or more Highest Order ONE of the following medications: *Heparin 5000 units SQ TID (Preferred with Epidurals) *Enoxaparin/Lovenox 40 mg SQ daily (WT < 150 kg, CrCl > 30 mL/min) *Enoxaparin/Lovenox 30 mg SQ daily (WT < 150 kg, CrCl > 10-29 mL/min) *Enoxaparin/Lovenox 30 mg SQ BID (WT < 150 kg, CrCl > 30 mL/min) AND *Sequential Compression Device (SCD) Assessment and Plan Plan 72-yo f with h/o DM,HTN, previous CVA, who presented to the ER after fall. Acute problems: Fall--mechanical. T12/L4 fracture keep on fall precautions. TLSO brace pain control Chronic stable conditions: #HTN-resume home medication #DM 2-resume home Levemir #h/o CVA-continue ASA,Statin
[2018-03-08] MEDS ORDERED: Acetaminophen 325 MG Tablet PO SCH (18:15)
[2018-03-08] MEDS ORDERED: Buprenorphine/Naloxone 8/2 MG Sublingual Tablet SL SCH (19:00)
[2018-03-08] MEDS: Temazepam 15 MG Capsule PO SCH (21:17)
[2018-03-08] MEDS: Furosemide 40 MG Tablet PO SCH (21:18)
[2018-03-08] MEDS: Fenofibrate 145 MG Tablet PO SCH (21:18)
[2018-03-08] MEDS: Insulin Detemir Inj 1,000 UNIT/10 ML Vial SQ SCH (21:18)
[2018-03-08] MEDS: Senna/Docusate Sodium 8.6/50 MG Tablet PO SCH (21:18)
[2018-03-08] MEDS: Acetaminophen 325 MG Tablet PO SCH (21:22)
[2018-03-09] MEDS: Acetaminophen 325 MG Tablet PO SCH ×4 (02:06→18:31)
--- NOTE | 2018-03-09 09:49 | P.PNIM ---
Subjective Interval history: still c/o lower back pain, but notes some improvement compared to when she came in.She has pain in her rt foot just above the 2nd and 3rd toes Physical Exam Vital signs: Last Vital Signs Temp 98 F 03/09/18 07:39 Pulse 42 L 03/09/18 07:39 Resp 18 03/09/18 07:39 BP 132/62 03/09/18 07:39 Pulse Ox 95 03/09/18 07:39 Intake & Output 03/07/18 03/08/18 03/09/18 03/10/18 06:59 06:59 06:59 06:59 Intake Total 221 / 221 Balance 221 / 221 Weight 81.647 kg Narrative: GENERAL: elderly woman, not in distress. HEENT:not pale,anicteric CARDIOVASCULAR: Regular rate and rhythm without murmurs, gallops, or rubs. RESPIRATORY: Clear to auscultation. Breath sounds equal bilaterally. No wheezes , rales, or rhonchi. GASTROINTESTINAL: Abdomen soft, non-tender, nondistended. Normal active bowel sounds MUSCULOSKELETAL: Extremities without clubbing, cyanosis, or edema. tenderness rt foot just at the dorsal 2nd metatarsal. NEURO: Alert & Oriented x4 to person, place, time, situation. Moves all ext x4. Results Labs CBC & Chem 7: 03/08/18 14:05 03/08/18 14:05 Imaging Imaging: Impressions Lumbar Spine CT 03/08/18 13:48 CONCLUSION: 1. Progression of the anterior wedging at T12 and L4. MRI would be of benefit to further evaluate thecal contents. There is no retropulsion of fragments from these compressions. Spinal stenosis from degenerative changes would appear to be significant. Pelvis X-Ray 03/08/18 13:48 CONCLUSION: Degenerative changes, dedicated hip films may be of benefit. Thoracic Spine CT 03/08/18 13:48 CONCLUSION: 1. No acute thoracic spine abnormality is identified. 2. Stable height loss at the superior endplate of T12 representing an old compression fracture. 3. There is a 2.2 cm left adrenal myelolipoma. Cervical Spine CT 03/08/18 13:49 CONCLUSION: 1. No acute fracture or subluxation. 2. Degenerative spondylosis of the lower cervical spine. Head CT 03/08/18 13:49 CONCLUSION: 1. Negative for an acute process . Assessment and Plan Plan 72-yo f with h/o DM,HTN, previous CVA, who presented to the ER after fall. Acute problems: Fall--mechanical. T12/L4 fracture keep on fall precautions. TLSO brace pain control PT/OT Chronic stable conditions: #HTN-resume home medication #DM 2-resume home Levemir #h/o CVA-continue ASA,Statin
[2018-03-09] MEDS: Furosemide 40 MG Tablet PO SCH ×2 (09:57→20:56)
[2018-03-09] MEDS: Famotidine 20 MG Tablet PO SCH ×3 (09:57→18:31)
[2018-03-09] MEDS: FLUoxetine 20 MG Capsule PO SCH (09:57)
[2018-03-09] MEDS: Gabapentin 300 MG Capsule PO SCH ×3 (09:57→18:31)
[2018-03-09] MEDS: hydrALAZINE 25 MG Tablet PO SCH ×3 (09:57→18:31)
[2018-03-09] MEDS: Senna/Docusate Sodium 8.6/50 MG Tablet PO SCH ×2 (09:57→20:57)
[2018-03-09] MEDS: Isosorbide Mononitrate 30 MG ER 24HR Tablet (Imdur) PO SCH (09:57)
[2018-03-09] MEDS: amLODIPine 10 MG Tablet PO SCH (09:57)
[2018-03-09] MEDS: Morphine Inj 4 MG/ML Vial IV.PUSH PRN (09:58)
[2018-03-09] MEDS: Insulin Detemir Inj 1,000 UNIT/10 ML Vial SQ SCH (18:31)
[2018-03-09] MEDS: Fenofibrate 145 MG Tablet PO SCH (20:56)
[2018-03-09] MEDS: Temazepam 15 MG Capsule PO SCH (20:57)
[2018-03-10] MEDS: Acetaminophen 325 MG Tablet PO SCH ×4 (00:23→18:00)
[2018-03-10] MEDS: Morphine Inj 4 MG/ML Vial IV.PUSH PRN ×2 (10:17→18:27)
[2018-03-10] MEDS: Isosorbide Mononitrate 30 MG ER 24HR Tablet (Imdur) PO SCH (10:19)
[2018-03-10] MEDS: hydrALAZINE 25 MG Tablet PO SCH ×3 (10:20→13:24)
[2018-03-10] MEDS: Senna/Docusate Sodium 8.6/50 MG Tablet PO SCH ×2 (10:20→21:15)
[2018-03-10] MEDS: Famotidine 20 MG Tablet PO SCH ×2 (10:20→13:22)
[2018-03-10] MEDS: Furosemide 40 MG Tablet PO SCH ×2 (10:20→21:17)
[2018-03-10] MEDS: FLUoxetine 20 MG Capsule PO SCH (10:20)
[2018-03-10] MEDS: Gabapentin 300 MG Capsule PO SCH ×3 (10:20→18:01)
[2018-03-10] MEDS: amLODIPine 10 MG Tablet PO SCH (10:20)
--- NOTE | 2018-03-10 11:45 | P.PNIM ---
Subjective Interval history: F/U visit. States she is doing better. States she has back pain last night and was needing IV morphine. States she uses Suboxone at home. Half the dose at night. States she wanted to have someone demonstrate again how to use her TLSO brace so that she is able to put it on by herself. Requesting for home health care with physical therapy and occupational therapy. Otherwise, denies SOB/ dyspnea. Denies chest pain, palpitations, headaches, dizziness. Denies fevers, chills, n/v/d. Denies dysuria. Physical Exam Vital signs: Vital Signs 03/09/18 12:00 03/09/18 16:00 03/09/18 16:02 Temperature 97.4 F L 97.7 F Pulse Rate 52 L 49 L Respiratory Rate 18 18 18 Blood Pressure 194/74 H 106/53 L Pulse Oximetry 93 L 93 L 03/09/18 19:05 03/09/18 20:00 03/09/18 20:45 Temperature 98.1 F Pulse Rate 70 65 Respiratory Rate 18 18 Blood Pressure 100/53 L 118/56 L Pulse Oximetry 96 03/10/18 00:00 03/10/18 02:10 03/10/18 04:00 Temperature 97.9 F 97.9 F Pulse Rate 73 69 Respiratory Rate 18 18 18 Blood Pressure 101/52 L 147/78 H Pulse Oximetry 96 96 03/10/18 07:08 03/10/18 08:00 03/10/18 10:20 Temperature 97.6 F Pulse Rate 43 L Respiratory Rate 17 20 18 Blood Pressure 129/60 Pulse Oximetry 93 L Intake & Output 03/09/18 03/10/18 03/10/18 18:59 06:59 18:59 Intake Total 1600 / 1600 600 / 600 Output Total 800 / 800 Balance 800 / 800 600 / 600 Intake: Oral 1600 / 1600 600 / 600 Output: Urine 800 / 800 Other: # Voids 2 Date of Last Bowel Movement 03/08/18 03/08/18 Narrative: GENERAL: This is a well-nourished, elderly female, in no apparent distress. SKIN: Warm and dry. HEENT: Normocephalic. Pupils equal round and reactive. Nose without bleeding. Airway patent. NECK: Trachea midline. CARDIOVASCULAR: Regular rate and rhythm without murmurs, gallops, or rubs. RESPIRATORY: Clear to auscultation. Breath sounds equal bilaterally. No wheezes , rales, or rhonchi. GASTROINTESTINAL: Abdomen soft, non-tender, nondistended. Bowel Sounds normoactive x4. MUSCULOSKELETAL: Extremities without clubbing, cyanosis, or edema. Right foot deformity and ankle area, unable to dorsiflex. NEUROLOGICAL: Awake and alert. No focal neuro deficit. Moves all extremities. Normal speech. Results - Labs CBC & Chem 7: 03/08/18 14:05 03/08/18 14:05 Laboratory Results - last 24 hr 03/09/18 03/09/18 03/09/18 12:00 16:59 20:54 POC Glucose 182 H 139 H 149 H 03/10/18 07:48 POC Glucose 94 Assessment and Plan - Plan 72-yo f with h/o DM type2, HTN, previous CVA, who presented to the ER after fall. Status post fall T12 and L4 wedging T12 old compression fracture -Lumbar Spine CT 03/08/18 Progression of the anterior wedging at T12 and L4. MRI would be of benefit to further evaluate thecal contents. There is no retropulsion of fragments from these compressions. Spinal stenosis from degenerative changes would appear to be significant. -Pelvis X-Ray 03/08/18 Degenerative changes, dedicated hip films may be of benefit. -Thoracic Spine CT 03/08/18 No acute thoracic spine abnormality is identified. Stable height loss at the superior endplate of T12 representing an old compression fracture. There is a 2.2 cm left adrenal myelolipoma. -Cervical Spine CT 03/08/18 No acute fracture or subluxation. Degenerative spondylosis of the lower cervical spine. -Head CT 03/08/18 Negative for an acute process -TLSO brace provided. Patient needs teaching on how to put on the TLSO brace. -Physical therapy eval and treat. Occupational therapy eval and treat. -Spoke with occupational therapy states that patient is unable to put the TLSO brace by herself, she would need assistance and patient is agreeable that neighbor will assist her when she is out of bed. at home will assist her with putting the straps on. Able to ambulate with walker to the bathroom. Recommending occupational therapy and possibly physical therapy at home. -This has been all discussed with patient. Plan to discharge home tomorrow with PT and OT. -She will need to follow-up with neurosurgery -Pain management with Suboxone. Patient has been on Suboxone at home. Follow-up with pain management in the outpatient -Start calcitonin HTN History of CVA EF previous 60-65%, Follows with Dr. Aldrich -home medications statin, ASA, Coreg, Norvasc, Imdur, Lasix, Tricor, clonidine, hydralazine -will decrease Norvasc to 5 mg, will hold hydralazine, Coreg, clonidine BP and HR low -Monitor BP trend -Will verify all of patient's medication [facility] at [place], DM 2 Diabetic neuropathy -Continue gabapentin -Insulin sliding scale, home Levemir dose 20Units HS -Monitor Accu-Cheks Depression/anxiety -Prozac continue DVT prop SCDs, early ambulation GI prop pantoprazole Code Status: Full code Discussed Condition With: Patient, nurse Discharge Planning: Plan to DC home tomorrow with home health care
--- NOTE | 2018-03-10 13:34 | P.DCO ---
- Physical Therapy Order: Evaluate and treat - Occupational Therapy Order: Evaluate and treat - Home Health Nursing Order: Medical education, Medication education-adverse effect, Nursing assessment with vital signs - Case Management Consult Case Management Consult-Home Health: Yes - Certification I have seen patient Chata Xie on 03/10/18. My clinical findings support the need for the requested home health care services because: Limited mobility due to disease progression, Deconditioned with increased weakness, High risk of falls I certify that my clinical findings support that this patient is homebound because: Unsteady gait/balance, Unsafe to leave home unassisted, Need for psychosocial assistance, Non-ambulatory: confined to bed or chair, Unable to use public transportation
--- NOTE | 2018-03-10 13:57 | P.DS ---
Date of admission: 03/08/18 17:16 Primary care physician: UNKNOWN Brief History from admission: 72-yo f with h/o DM type2,HTN, previous CVA, who presented to the ER after fall. Patient was in the kitchen sticking breakfast dishes when she slid on a recently cleaned/polished floor that she had not noticed, and fell backwards hitting her head and back. She did not lose consciousness. She denies dizziness, lightheadedness, or palpitations prior to falling.She had no visual symptoms, abnormal movements or diaphoresis. No chest pain or shortness of breath. No change in bowel or micturition habits. Patient usually ambulates with a cane,and has a walker that she rarely uses. ROS was negative except as stated in above. On presentation to ER,patient had stable vitals, labs were at baseline, CT head, C-spine and T-spine did not reveal any acute finding. CT L spine-Progression of the anterior wedging at T12 and L4. Patient received pain control meds but pain remained intractable. ER physician reports d/w neurosurgeon who recommended to admit for pain control and TLSO brace, PT/OT. DS: Summary - Time Spent with Patient Total time spent providing and/or coordinating discharge services: Exam Vital signs: Vital Signs 03/09/18 16:00 03/09/18 16:02 03/09/18 19:05 Temperature 97.7 F Pulse Rate 49 L Respiratory Rate 18 18 18 Blood Pressure 106/53 L Pulse Oximetry 93 L 03/09/18 20:00 03/09/18 20:45 03/10/18 00:00 Temperature 98.1 F 97.9 F Pulse Rate 70 65 73 Respiratory Rate 18 18 Blood Pressure 100/53 L 118/56 L 101/52 L Pulse Oximetry 96 96 03/10/18 02:10 03/10/18 04:00 03/10/18 07:08 Temperature 97.9 F Pulse Rate 69 Respiratory Rate 18 18 17 Blood Pressure 147/78 H Pulse Oximetry 96 03/10/18 08:00 03/10/18 10:20 03/10/18 11:58 Temperature 97.6 F Pulse Rate 43 L Respiratory Rate 20 18 Blood Pressure 129/60 Pulse Oximetry 93 L 93 L 03/10/18 12:00 Temperature 97.2 F L Pulse Rate 44 L Respiratory Rate 20 Blood Pressure 100/55 L Pulse Oximetry 92 L Intake & Output 03/09/18 03/10/18 03/10/18 18:59 06:59 18:59 Intake Total 1600 / 1600 600 / 600 Output Total 800 / 800 Balance 800 / 800 600 / 600 Intake: Oral 1600 / 1600 600 / 600 Output: Urine 800 / 800 Other: # Voids 2 1 Date of Last Bowel Movement 03/08/18 03/08/18 Results Labs on day of discharge: Labs from last 24 hours 03/10/18 03/09/18 03/09/18 07:48 20:54 16:59 POC Glucose 94 149 H 139 H - Impressions ITS Impressions Lumbar Spine CT 03/08/18 13:48 CONCLUSION: 1. Progression of the anterior wedging at T12 and L4. MRI would be of benefit to further evaluate thecal contents. There is no retropulsion of fragments from these compressions. Spinal stenosis from degenerative changes would appear to be significant. Pelvis X-Ray 03/08/18 13:48 CONCLUSION: Degenerative changes, dedicated hip films may be of benefit. Thoracic Spine CT 03/08/18 13:48 CONCLUSION: 1. No acute thoracic spine abnormality is identified. 2. Stable height loss at the superior endplate of T12 representing an old compression fracture. 3. There is a 2.2 cm left adrenal myelolipoma. Cervical Spine CT 03/08/18 13:49 CONCLUSION: 1. No acute fracture or subluxation. 2. Degenerative spondylosis of the lower cervical spine. Head CT 03/08/18 13:49 CONCLUSION: 1. Negative for an acute process . Discharge Plan - Discharge Condition Condition: Stable - Physicians Team Primary Care Provider: UNKNOWN, Attending Provider: Aleja Ramos
[2018-03-10] MEDS ORDERED: amLODIPine 5 MG Tablet PO SCH (16:32)
[2018-03-10] MEDS: Insulin Detemir Inj 1,000 UNIT/10 ML Vial SQ SCH (18:00)
[2018-03-10] MEDS: Calcitonin Salmon Nasal 200 UNITS/Actuation - (3.7 ML) NASAL SCH (18:00)
[2018-03-10] MEDS ORDERED: BUPRENORPHINE NALOXONE SL SCH (21:00)
[2018-03-10] MEDS: Temazepam 15 MG Capsule PO SCH (21:15)
[2018-03-10] MEDS: Fenofibrate 145 MG Tablet PO SCH (21:15)
[2018-03-11] MEDS: Morphine Inj 4 MG/ML Vial IV.PUSH PRN ×2 (00:30→09:34)
[2018-03-11] MEDS: Acetaminophen 325 MG Tablet PO SCH ×3 (00:30→14:07)
[2018-03-11] MEDS ORDERED: amLODIPine 10 MG Tablet PO SCH (09:00)
[2018-03-11] MEDS ORDERED: Enoxaparin Inj 40 MG/0.4 ML Syringe SQ SCH (09:00)
[2018-03-11] MEDS: Calcitonin Salmon Nasal 200 UNITS/Actuation - (3.7 ML) NASAL SCH (09:31)
[2018-03-11] MEDS: hydrALAZINE 25 MG Tablet PO SCH ×2 (09:33→14:07)
[2018-03-11] MEDS: FLUoxetine 20 MG Capsule PO SCH (09:33)
[2018-03-11] MEDS: Furosemide 40 MG Tablet PO SCH (09:33)
[2018-03-11] MEDS: Gabapentin 300 MG Capsule PO SCH ×2 (09:33→14:07)
[2018-03-11] MEDS: Isosorbide Mononitrate 30 MG ER 24HR Tablet (Imdur) PO SCH (09:33)
[2018-03-11] MEDS: Senna/Docusate Sodium 8.6/50 MG Tablet PO SCH (09:33)
--- NOTE | 2018-03-11 09:41 | P.DS ---
Date of admission: 03/08/18 17:16 Primary care physician: UNKNOWN Attending physician on discharge: Aleja Ramos Anticipated date of discharge: 03/11/18 Brief History from admission: 72-yo f with h/o DM type2,HTN, previous CVA, who presented to the ER after fall. Patient was in the kitchen sticking breakfast dishes when she slid on a recently cleaned/polished floor that she had not noticed, and fell backwards hitting her head and back. She did not lose consciousness. She denies dizziness, lightheadedness, or palpitations prior to falling.She had no visual symptoms, abnormal movements or diaphoresis. No chest pain or shortness of breath. No change in bowel or micturition habits. Patient usually ambulates with a cane,and has a walker that she rarely uses. ROS was negative except as stated in above. On presentation to ER,patient had stable vitals, labs were at baseline, CT head, C-spine and T-spine did not reveal any acute finding. CT L spine-Progression of the anterior wedging at T12 and L4. Patient received pain control meds but pain remained intractable. ER physician reports d/w neurosurgeon who recommended to admit for pain control and TLSO brace, PT/OT. Patient update on day of discharge: Follow-up visit T/L4 fracture status post mechanical fall. Patient seen and examined today. Reports continues to have some back pains especially if she continues to lay. On her back. She states that she has work with physical therapy and occupational therapy yesterday and did fine. Discussed with patient plan to discharge her home with home health care. States that she is requesting her original home health care that she is being followed and that she knows of. This will be arranged with case management. Discussed continue to use TLSO brace. She will need to follow-up with neurosurgery in the outpatient setting. Verbalized understanding. Discussed with patient regarding bradycardia and hypertension and that her medications will need to be adjusted. She verbalized understanding and wanting to be off of some medications if she really does not needed. States that she follows with Dr. aldrich and outpatient. We will verify all her information with [facility] pharmacy for adjustments. Denies SOB/ dyspnea. Denies chest pain, palpitations, headaches, dizziness. Denies fevers, chills, n/v/d. Denies hematuria, dysuria. DS: Medications - Discharge Medications Prescriptions: calcitonin (salmon) 1 sprays NASAL DAILY 30 Days ml DS: Summary Hospital Course: Patient is a 72-year-old female with past medical history of DM type II, HTN, previous CVA, previous RI who initially came into the hospital status post fall. Patient has T12 and L4 wedging and an old T12 compression fracture. Patient underwent multiple diagnostic imaging. umbar Spine CT 03/08/18 Progression of the anterior wedging at T12 and L4. MRI would be of benefit to further evaluate thecal contents. There is no retropulsion of fragments from these compressions. Spinal stenosis from degenerative changes would appear to be significant. Pelvis X-Ray 03/08/18 Degenerative changes, dedicated hip films may be of benefit. Thoracic Spine CT 03/08/18 No acute thoracic spine abnormality is identified. Stable height loss at the superior endplate of T12 representing an old compression fracture. There is a 2.2 cm left adrenal myelolipoma. Cervical Spine CT 03/08/18 No acute fracture or subluxation. Degenerative spondylosis of the lower cervical spine. Head CT 03/08/18 Negative for an acute process. Less of brace was provided. Teaching on TLSO brace was also provided. Physical therapy and occupational therapy have seen and evaluated the patient. Able to ambulate with walker for short distance. Will discharge patient with home health care physical therapy occupational therapy and nursing. She will continue with her pain management of Suboxone. We will not provide any narcotic medications on top of Suboxone. She can follow with her outpatient pain management. Patient will start on calcitonin nasal. During hospitalization patient showed some bradycardia and blood pressure has been in the low normals. Most of her blood pressure medications were held. This will be adjusted. She is following with Dr. heath an outpatient with EF previously 60-65%. History of CVA. We will adjust her medication based on what she is taking her home verified with [facility] pharmacy. Patient will continue with her diabetic medications at home including for diabetic neuropathy gabapentin. Patient has met maximal benefits of hospitalization. Clinically stable for discharge. Follow-up with PCP, pain management, neurosurgery, Dr. Aldrich. Unable to do MRI secondary to loop recorder. - Time Spent with Patient Total time spent providing and/or coordinating discharge services: Greater than 30 minutes Exam Vital signs: Vital Signs 03/10/18 10:20 03/10/18 11:58 03/10/18 12:00 Temperature 97.2 F L Pulse Rate 44 L Respiratory Rate 18 20 Blood Pressure 100/55 L Pulse Oximetry 93 L 92 L 03/10/18 16:00 03/10/18 18:30 03/10/18 19:09 Temperature 97.9 F Pulse Rate 46 L Respiratory Rate 20 17 17 Blood Pressure 100/55 L Pulse Oximetry 94 L 03/10/18 19:41 03/10/18 20:00 03/11/18 00:00 Temperature 98.7 F 98.4 F Pulse Rate 59 L 45 L Respiratory Rate 20 18 Blood Pressure 121/56 L 108/59 L Pulse Oximetry 92 L 94 L 95 03/11/18 04:00 Temperature 98.3 F Pulse Rate 50 L Respiratory Rate 17 Blood Pressure 172/79 H Pulse Oximetry 93 L Intake & Output 03/10/18 03/11/18 03/11/18 18:59 06:59 18:59 Output Total 200 / 200 100 / 100 Balance -200 / -200 -100 / -100 Weight 81.5 kg Output: Urine 200 / 200 100 / 100 Other: # Voids 1 Date of Last Bowel Movement 03/10/18 # Bowel Movements 1 Narrative: GENERAL: This is a well-nourished, elderly female, in no apparent distress. SKIN: Warm and dry. HEENT: Normocephalic. Pupils equal round and reactive. Nose without bleeding. Airway patent. NECK: Trachea midline. CARDIOVASCULAR: Regular rate and rhythm without murmurs, gallops, or rubs. RESPIRATORY: Clear to auscultation. Breath sounds equal bilaterally. No wheezes , rales, or rhonchi. GASTROINTESTINAL: Abdomen soft, non-tender, nondistended. Bowel Sounds normoactive x4. MUSCULOSKELETAL: Extremities without clubbing, cyanosis, or edema. Right foot deformity and ankle area, unable to dorsiflex. NEUROLOGICAL: Awake and alert. No focal neuro deficit. Moves all extremities. Normal speech. Results Procedures completed during hospitalization: none Labs on day of discharge: Labs from last 24 hours 03/11/18 03/10/18 03/10/18 08:19 21:14 17:00 POC Glucose 87 178 H 132 H - Impressions ITS Impressions Lumbar Spine CT 03/08/18 13:48 CONCLUSION: 1. Progression of the anterior wedging at T12 and L4. MRI would be of benefit to further evaluate thecal contents. There is no retropulsion of fragments from these compressions. Spinal stenosis from degenerative changes would appear to be significant. Pelvis X-Ray 03/08/18 13:48 CONCLUSION: Degenerative changes, dedicated hip films may be of benefit. Thoracic Spine CT 03/08/18 13:48 CONCLUSION: 1. No acute thoracic spine abnormality is identified. 2. Stable height loss at the superior endplate of T12 representing an old compression fracture. 3. There is a 2.2 cm left adrenal myelolipoma. Cervical Spine CT 03/08/18 13:49 CONCLUSION: 1. No acute fracture or subluxation. 2. Degenerative spondylosis of the lower cervical spine. Head CT 03/08/18 13:49 CONCLUSION: 1. Negative for an acute process . Discharge Plan - Discharge Disposition Patient Disposition: /Home Health Service - Discharge Condition Condition: Stable - Discharge Order Discharge Orders: Discharge Order (Routine); Ordered 03/11/18 Ordered By: Arnol Baltazar - Discharge Details Anticipated Discharge Date: 03/11/18 - Physicians Team Primary Care Provider: UNKNOWN, Attending Provider: Aleja Ramos
== END 2018-03-11 15:12 | disposition home health service (06) ==
LOC: NEPD 13:29 → NEDA 17:16 → N05 19:33
PROVIDERS: ADMIT Hospitalist; ATTEND Hospitalist